=== PATIENT | male | born 1980 | race Caucasian/White ===

== ENCOUNTER 2018-02-27 04:02 | Emergency (ER) | payer SELFPAY ==
[2018-02-27 04:03] VITALS: BP 146/89; PULSE 99; RESP 20; TEMP 36.8; O2SAT 98; BMI 20.2
--- NOTE | 2018-02-27 04:37 | ED.VISSUMM ---
- ER Visit Summary Date of Service: 02/27/18 Chief Complaint: [] Abnormal behavior History of Present Illness: The patient is a 37 M with reported abnormal behavior today. Reported hallucinations and delusions. Patient called the police thinking that people are outside his house. His mother stated she did not see anyone or here anyone. He stated that his ex- was next door and trying to get him to violate a restraining order. He stated that the police did not even look for her. His mom on the phone stated that she does not even know where she lives and was not there. The patient did admit to smoking marijuana twice per week. None tonight. He also admitted to methamphetamines greater than 24 hours ago. Patient is supposed to be on Prozac and Ativan but has not taken them in the last 3 months per pt. He has a history of bipolar disorder. His mom stated he has been admitted twice recently. He denies any suicidal or homicidal ideation and wants to go home Physical Examination: Vital signs reviewed General: Well-nourished well-developed Head: Normocephalic atraumatic Eyes: Pupils equal round and reactive to light extraocular movements intact ENT: TMs clear no hemotympanum no trauma Neck: Nontender full range of motion Cardiovascular: Regular rate rhythm no murmurs normal S1-S2 Respiratory: No distress clear to auscultation bilaterally chest nontender Abdomen: Soft nontender nondistended normal bowel sounds no masses Back: Nontender no CVA tenderness Extremities: Nontender active range of motion ?4 extremities no trauma Psych: Normal thought processes. Difficult to tell if patient is actually having delusions or hallucinations are telling the truth. Normal color no trauma Neuro alert oriented cranial nerves II through XII intact normal strength sensation reflexes Test Results: [] Emergency Department Course and Treatment: [] Discussed at length with the patient's mom. He called her outside home and stated there were people out there. She saw no one. She said he is having hallucinations and delusions. He was brought in for further evaluation by the police. Patient did have lab work obtained and will be seen by mental health. Lab work shows a normal CBC. Chemistries normal except BUN 19 glucose 115. Alcohol negative. Tox for amphetamines, MDMA, marijuana. Seen by crisis. At this time we have made a consensus decision that patient psychosis is from his intoxication and likely amphetamine related. He does not appear psychotic in the department. He answers all questions was evaluated by crisis. Patient is refusing treatment. To go home. He does not want to be admitted. He has the right to do this. Is not suicidal or homicidal. We discussed with his mom. He will be discharged. He was given information on follow-up. He stated he does not want to follow-up with crisis and does not want to take medications. Instructed to stay away from illicit substances Treatment Plan: [] Disposition: [] Impression: [] Reported acute psychoses Reported acute hallucinations and delusions Polysubstance drug abuse This note was generated with [employer] dictation software. It may contain incorrect words, spelling, and punctuation that were not noted in review of the chart prior to signing ED Disposition - Plan for ED Patient: Disposition: Home or Assisted Living Chief Complaint: Mental Health Instructions: ED Drug Abuse General Referrals: Counseling,Center [GROUP OF PHYSICIANS] - Care Physician,No Primary [Primary Care Provider] - EIGHTY,ONE [STAFF PHYSICIAN] -
[2018-02-27 04:45] LABS: Absolute Lymphocyte Count 2.17 X10^3/ul (0.83-4.51); Absolute Neutrophil Count 5.7 X10^3/uL (2.0-7.7); Basophil# 0.02 X10^3/uL; Basophil% 0.2 % (0-1); Eosinophil# 0.08 X10^3/uL; Eosinophils% 0.9 % (0-5); Hematocrit 44.2 % (40-54); Hemoglobin 14.7 g/dl (13.0-16.5); Lymphocyte # 2.17 X10^3/ul (4.0); Lymphocyte % 25.1 % (19-41); Mean Corp Hgb Conc 33.3 g/gl (32-36); Mean Corpuscular Hgb 31.5 pg (27.0-32.0); Mean Corpuscular Volume 94.6 fL (80-94); Mean Platelet Vol. 10.4 fl (6.2-12.0); Monocyte# 0.63 X10^3/uL; Monocyte% 7.3 % (0-10); Neutrophil # 5.73 X10^3/uL (2.7-7.7); Neutrophil % 66.4 % (47-70); Platelet Count 216 K/mm3 (150-450); Red Blood Count 4.67 M/mm3 (4.6-6.2); White Blood Count 8.6 K/mm3 (4.4-11.0)
[2018-02-27 04:47] LABS: POSITIVE COUNT NO; POSITIVE DIFFERENTIAL NO; POSITIVE MORPHOLOGY NO
[2018-02-27 04:52] LABS: Anion Gap 6 (5-15); BUN 19 mg/dL (7-18); BUN/Creat Ratio 19.5 RATIO (10-20); Calcium,Total 8.5 mg/dL (8.5-10.1); Chloride 105 mmol/L (98-107); Creatinine, Serum 0.97 mg/dL (0.70-1.30); EST Glomerular Filtration Rate 91 mL/min (>60); Est Glom Filt Rate - Afr Amer 111 mL/min (>60); Glucose 115 mg/dL (74-106); Sodium Level 141 mmol/L (136-145)
[2018-02-27 04:57] LABS: Alcohol, Blood (Medical)-Serum < 3.0 mg/dL
[2018-02-27 05:03] VITALS: RESP 18
--- NOTE | 2018-02-27 05:03 | ED.RN ---
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
[2018-02-27 05:16] LABS: Amphetamine Urine VISTA POSITIVE (<1000 ng/mL); Barbiturate Urine VISTA NEGATIVE (< 200 ng/mL); Benzodiazepine Urine VISTA NEGATIVE (< 200 ng/mL); Cocaine Urine VISTA NEGATIVE (< 300 ng/mL); Ecstacy Urine VISTA POSITIVE (< 500 ng/mL); Methadone Urine VISTA NEGATIVE (< 300 ng/mL); PCP Urine VISTA NEGATIVE (< 25 ng/mL); THC Urine VISTA POSITIVE (< 50 ng/mL); Vista UDS pH Range 6
--- NOTE | 2018-02-27 06:01 | ED.DEP ---
ED Disposition - Plan for ED Patient: Disposition: Home or Assisted Living Chief Complaint: Mental Health Instructions: ED Drug Abuse General Referrals: Care Physician,No Primary [Primary Care Provider] - Counseling,Center [GROUP OF PHYSICIANS] - EIGHTY,ONE [STAFF PHYSICIAN] -
[2018-02-27 06:08] VITALS: RESP 18
--- NOTE | 2018-02-27 06:14 | ED.RN ---
PTS MOTHER CALLED AFTER PATIENT WAS GIVEN THOROUGH DISCHARGE INSTRUCTIONS. MOTHER STATES I WILL HIRE A BEEF BREAKER WHEN SOMETHING HAPPENS. MOTHER WAS INFORMED HE WAS CLEARED BY THE ER PHYSICIAN AND CRISIS COUNSELOR AND THAT I COULD NOT DISCLOSE ANY OF HIS MEDICAL INFORMATION.
== END 2018-02-27 06:09 | disposition home or self-care (01) ==
PROVIDERS: Emergency Provider Emergency Medicine
DX: F29 Unspecified psychosis not due to a substance or known physiological condition (principal); R44.3 Hallucinations, unspecified; F22 Delusional disorders; F19.10 Other psychoactive substance abuse, uncomplicated; F31.9 Bipolar disorder, unspecified; Z72.0 Tobacco use
CPT/HCPCS: 80048; 80307; 80320; 85025; 99285; G0480

== ENCOUNTER → 2024-11-03 | Outpatient (CLI) | payer MEDICAID, SELFPAY ==
[2024-11-03 17:12] LABS: Absolute Lymphocyte Count 1.19 X10^3/uL (0.83-4.51); Basophil# 0.06 X10^3/uL; Basophil% 0.5 % (0-1); Eosinophil# 0.39 X10^3/uL; Eosinophils% 3.1 % (0-5); Hemoglobin 14.4 g/dL (13.0-16.5); Lymphocyte # 1.19 X10^3/ul (0.83-4.51); Lymphocyte % 9.4 % (19-41); Mean Corp Hgb Conc 32.7 g/dL (32-36); Mean Corpuscular Hgb 30.8 pg (27.0-32.0); Mean Platelet Vol. 11.7 fl (6.2-12.0); Monocyte# 0.93 X10^3/uL; Monocyte% 7.4 % (0-10); NRBC Flagged by Analyzer 0 % (0-5); Neutrophil # 10.02 X10^3/uL (2.7-7.7); Neutrophil % 79.2 % (47-70); Platelet Count 157 K/mm3 (150-450); RBC Distribution Width CV 13.2 % (11.6-14.6); RBC Distribution Width SD 45.3 fl (35.1-43.9); Red Blood Count 4.68 M/mm3 (4.6-6.2); White Blood Count 12.6 K/mm3 (4.4-11.0)
[2024-11-03 17:50] LABS: ALB/GLOB Ratio 1.1 RATIO (0.9-2.4); AST(SGOT) 32 U/L (<=37); Alanine Aminotransfer ALT/SGPT 31 U/L (<=46); Albumin, Serum 4.4 g/dL (3.5-5.0); Alkaline Phosphatase 77 U/L (40-129); Anion Gap 13 (5-15); BUN 11 mg/dL (4-19); BUN/Creat Ratio 13.9 RATIO (10-20); Calcium,Total 9.8 mg/dL (7.6-11.0); Carbon Dioxide 19.5 mmol/L (21.0-32.0); Chloride 103 mmol/L (98-108); Creatinine, Serum 0.82 mg/dL (0.70-1.20); EST Glomerular Filtration Rate 110 (>60); Glucose 88 mg/dL (70-99); Potassium 4.3 mmol/L (3.3-5.1); Protein, Total 8.4 g/dL (5.9-8.4); Sodium Level 135 mmol/L (133-145); Total Bilirubin 0.57 mg/dL (0.00-1.30)
[2024-11-03 18:23] LABS: Lithium 0.64 mmol/L (0.60-1.20)
== END | disposition home or self-care (01) ==
LOC: VSLAB 14:31
DX: F20.9 Schizophrenia, unspecified (principal); R53.83 Other fatigue
CPT/HCPCS: 36415; 80053; 80178; 84443; 85025

== ENCOUNTER → 2024-11-19 | Outpatient (CLI) | payer MEDICAID, SELFPAY ==
[2024-11-19 13:26] LABS: Vitamin B12 575 pg/mL (180-914); Vitamin D,25 Hydroxy 49.3 ng/mL (30-100)
== END | disposition home or self-care (01) ==
LOC: VSLAB 08:14
DX: R41.3 Other amnesia (principal); R53.83 Other fatigue
CPT/HCPCS: 36415; 82306; 82607

== ENCOUNTER → 2025-02-03 | Outpatient (CLI) | payer MEDICAID, SELFPAY ==
[2025-02-03 09:33] LABS: Hematocrit 48.2 % (40-54); Hemoglobin 15.8 g/dL (13.0-16.5); Immature Granulocytes Count 0.050 X10^3/uL (0.0-0.0); Mean Corp Hgb Conc 32.8 g/dL (32-36); Mean Corpuscular Volume 93.6 fL (80-94); Mean Platelet Vol. 11.0 fl (6.2-12.0); NRBC Flagged by Analyzer 0 % (0-5); Platelet Count 184 K/mm3 (150-450); RBC Distribution Width CV 13.2 % (11.6-14.6); RBC Distribution Width SD 45.7 fl (35.1-43.9); Red Blood Count 5.15 M/mm3 (4.6-6.2); White Blood Count 13.0 K/mm3 (4.4-11.0)
[2025-02-03 10:20] LABS: Lithium 0.43 mmol/L (0.60-1.20)
[2025-02-03 10:23] LABS: AST(SGOT) 22 U/L (<=37); Alanine Aminotransfer ALT/SGPT 18 U/L (<=46); Albumin, Serum 4.7 g/dL (3.5-5.0); Alkaline Phosphatase 75 U/L (40-129); Anion Gap 11 (5-15); BUN 14 mg/dL (4-19); BUN/Creat Ratio 14.8 RATIO (10-20); Calcium,Total 9.7 mg/dL (7.6-11.0); Carbon Dioxide 23.1 mmol/L (21.0-32.0); Chloride 103 mmol/L (98-108); Globulin 4.0 g/dL (2.2-4.2); Glucose 100 mg/dL (70-99); Potassium 4.3 mmol/L (3.3-5.1)
== END | disposition home or self-care (01) ==
PROVIDERS: Referring Provider Nurse Practitioner; Visit Provider Nurse Practitioner
DX: F20.9 Schizophrenia, unspecified (principal)
CPT/HCPCS: 36415; 80053; 80178; 84443; 85025

== ENCOUNTER → 2025-04-25 | Outpatient (CLI) | payer MEDICAID, SELFPAY ==
[2025-04-25 12:22] LABS: Hematocrit 48.0 % (40-54); Hemoglobin 15.5 g/dL (13.0-16.5); Mean Corp Hgb Conc 32.3 g/dL (32-36); Mean Corpuscular Volume 96.0 fL (80-94); Mean Platelet Vol. 11.0 fl (6.2-12.0); Platelet Count 185 K/mm3 (150-450); RBC Distribution Width CV 13.1 % (11.6-14.6); RBC Distribution Width SD 46.7 fl (35.1-43.9); Red Blood Count 5.00 M/mm3 (4.6-6.2); White Blood Count 11.9 K/mm3 (4.4-11.0)
[2025-04-25 12:25] LABS: Ammonia 20.6 umol/L (16-60)
[2025-04-25 13:26] LABS: Barbiturate Urine NEGATIVE (< 200 ng/mL); Benzodiazepine Urine NEGATIVE (< 200 ng/mL); Lithium 0.60 mmol/L (0.60-1.20); PCP Urine NEGATIVE (< 25 ng/mL); THC Urine PRESUMPTIVE POSITIVE (< 50 ng/mL)
[2025-04-25 13:46] LABS: AST(SGOT) 23 U/L (<=37); Alanine Aminotransfer ALT/SGPT 20 U/L (<=46); Albumin, Serum 4.8 g/dL (3.5-5.0); Alkaline Phosphatase 75 U/L (40-129); Anion Gap 12 (5-15); BUN 11 mg/dL (4-19); BUN/Creat Ratio 10.7 RATIO (10-20); Calcium,Total 9.8 mg/dL (7.6-11.0); Carbon Dioxide 24.6 mmol/L (21.0-32.0); Chloride 101 mmol/L (98-108); Globulin 4.2 g/dL (2.2-4.2); Glucose 91 mg/dL (70-99); Potassium 4.2 mmol/L (3.3-5.1); Vitamin B12 529 pg/mL (180-914)
[2025-04-27 12:09] LABS: ANTINUCLEAR ANTIBODIES DIRECT Positive (Negative); Anti-Chromatin <0.2 AI (0.0-0.9); Anti-Jo <0.2 AI (0.0-0.9); Anti-dsDNA Ab 21 IU/mL (0-9); SJOGREN'S Anti-SS-A test 0.4 AI (0.0-0.9); SJOGREN'S Anti-SS-B test 0.3 AI (0.0-0.9); Vitamin D 1,25-Dihydroxy 33.4 pg/mL (24.8-81.5)
[2025-04-28 18:08] LABS: Folate, Hemolysate Test 319.0 ng/mL (Not Estab.); Folate, RBC (Hct) Test 47.9 % (37.5-51.0); Folates, RBC Test 666 ng/mL (>498); VITAMIN B6 5.5 ug/L (3.4-65.2); Vitamin B1, Thiamine 150.4 nmol/L (66.5-200.0)
== END | disposition home or self-care (01) ==
LOC: MTLAB 10:01
PROVIDERS: Referring Provider Psychiatry & Neurology Neurology; Visit Provider Psychiatry & Neurology Neurology
DX: F03.90 Unspecified dementia, unspecified severity, without behavioral disturbance, psychotic disturbance, mood disturbance, and anxiety (principal); F20.0 Paranoid schizophrenia
CPT/HCPCS: 36415; 80053; 80178; 80307; 82140; 82607; 82652; 82747; 84207; 84425; 84443; 85014; 85027; 86038; 86225; 86235

== ENCOUNTER → 2025-05-09 | Outpatient (CLI) | payer MEDICAID, SELFPAY ==
--- NOTE | 2025-05-09 06:59 | MRI_ITS ---
PROCEDURE: BRAIN W/WO CONTRAST 05/09/2025 REASON FOR EXAM: DEMENTIA; PARANOID SCHIZOPHRENIA TECHNIQUE: Procedure Code: [id number] Modality: MR Procedure: BRAIN W/WO CONTRAST Multiplanar and multisequence images were obtained. CONTRAST: Clariscan VOLUME: 15 mL COMPARISON: None available FINDINGS: Some images are degraded by motion artifact. No acute infarct or hemorrhage. The brain parenchyma is within normal limits. No extra-axial fluid collection. No significant mass effect or herniation of the brain. The ventricular system and sulci/fissures are within expected limits of size and configuration for the patient's stated age. The basal cisterns are patent. The intracranial large vessel arterial flow voids are maintained. The mastoid air cells clear. There is scattered paranasal mucosal thickening. The orbits are unremarkable. The calvarial bone marrow signal is within normal limits. MRI/Brain W/WO Contrast IMPRESSION: No acute intracranial findings. No pathologic intracranial enhancement. Reading Location: [id number]
--- OUTSIDE RECORDS SUMMARY | 2025-05-09 07:28 | XMS RPT_ITS | CCD ---
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 Name Role Phone PROVIDER, UNKNOWN Unavailable Unavailable No, PCP Unavailable Unavailable Avery Fernandez Unavailable Unavailable Ana Paula Cox Attending Unavailable PROVIDER, UNKNOWN Referring Unavailable No, PCP Primary Care Unavailable PROVIDER, UNKNOWN Referring Unavailable No, PCP Primary Care Unavailable Samantha Sandy Attending Unavailable PROVIDER, UNKNOWN Referring Unavailable No, PCP Primary Care Unavailable Naheed Trotter Attending Unavailable Giovanni Walden Attending Unavailable PROVIDER, UNKNOWN Referring Unavailable No, PCP Primary Care Unavailable Julse Brizuela Attending Unavailable PROVIDER, UNKNOWN Referring Unavailable No, PCP Primary Care Unavailable Lex Almazan Attending Unavailable PROVIDER, UNKNOWN Referring Unavailable No, PCP Primary Care Unavailable JIMENA PAGAN Attending Unavailable JIMENA PAGAN Admitting Unavailable PHYSICIAN, NONE Primary Care Unavailable IVANIA MCINTYRE DO Attending Unavailable PHYSICIAN, NONE Primary Care Unavailable IVANIA MCINTYRE DO Attending Unavailable DR WHIT MORLEY MD Primary Care Physician IVANIA MCINTYRE DO Attending Unavailable PHYSICIAN, NONE Primary Care Unavailable DR WHIT MORLEY MD Primary Care Unavailab alfa OLVERA MD, DR MENDY Palacios Attending Unavailabl e Beam FINANCIAL LEGAL ASSISTANT-C, Zebulun Primary Care Provider Beam FINANCIAL LEGAL ASSISTANT-C, Zebulun Attending Provider Beam FINANCIAL LEGAL ASSISTANT-C, Zebulun Primary Care Physician Beam FINANCIAL LEGAL ASSISTANT-C, Zebulun Attending Physician [place] FINANCIAL LEGAL ASSISTANT-C, Rebeca Attending Physician [place] FINANCIAL LEGAL ASSISTANT-C, Rebeca Referring Provider Beam, Zebulun Primary Care Unavailable Beam, Zebulun Attending Unavailable Beam, Zebulun Primary Care Unavailable FrybargeRebeca Henao Attending Unavailabl e [place] Rebeca GARCIA Referring Unavailabl e Beam, Zebulun Primary Care Unavailable Beam, Kellie Attending Unavailable Beam, Zebufranco Referring Unavailable Beam, Zebulun Primary Care Unavailable Beam, Kellie Attending Unavailable Allergies Allergy Classification Reported Allergen(s) Allergy Type Date of Onset Reaction(s) Facility (3 sources) diphenhydrAMINE Drug Allergy 8 Other [facility] (1 source) diphenhydrAMINE Drug Allergy 8 [facility] Repository Medications Current Medications Medication Drug Class(es) Dates Sig (Normalized) Sig (Original) cyclobenzaprine hydrochloride 5 mg oral tablet (1 source) Muscle Relaxant Start: 10-01-2024 End: 10-08-2024 cyclobenzaprine 5 mg oral tablet Dose : 5 mg = 1 tab(s), Oral, TID, PRN Muscle spasm, X 7 day(s), # 21 tab(s), 0 Refill(s), 10/08/24 3:18:00 PM EDT, Pharmacy: [facility], kg, 10/01/24 13:36:00 EDT, Dosing Weight Start Date: 10/01/24 Stop Date: 10/08/24 Status: Ordered Quantity: 21.0 Unit: tab(s) Repeat number: 1 docusate sodium 50 mg / sennosides, [facility] 8.6 mg oral tablet (1 source) Start: 10-01-2024 Senexon-S 50 mg-8.6 mg oral tablet 0 Refill(s) Start Date: 10/01/24 Status: Ordered Repeat number: 1 haloperidol 5 mg oral tablet (1 source) Typical Antipsychotic Start: 10-01-2024 haloperidol 5 mg oral tablet Dose : 5 mg = 1 tab(s), Oral, BID, # 180 tab(s), 0 Refill(s) Start Date: 10/01/24 Status: Ordered Quantity: 180.0 Unit: tab(s) Repeat number: 1 lithium carbonate 300 mg extended release oral tablet (2 sources) Start: 10-01-2024 lithium 300 mg oral tablet, extended release Dose : 300 mg = 1 tab(s), Oral, BID, # 270 tab(s), 0 Refill(s) Start Date: 10/01/24 Status: Ordered Quantity: 270.0 Unit: tab(s) Repeat number: 1 Start: 10-01-2024 lithium 150 mg oral capsule Dose : 150 mg = 1 cap(s), Oral, Daily, 0 Refill(s) Start Date: 10/01/24 Status: Ordered Repeat number: 1 melatonin 3 mg oral tablet (1 source) Start: 10-01-2024 Melatonin 3 mg oral tablet Dose : 3 mg = 1 tab(s), Oral, qHS, PRN for insomnia, # 90 tab(s), 0 Refill(s) Start Date: 10/01/24 Status: Ordered Quantity: 90.0 Unit: tab(s) Repeat number: 1 metFORMIN hydrochloride 500 mg oral tablet (1 source) Biguanide Start: 10-01-2024 metFORMIN 500 mg oral tablet (IR) Dose : 500 mg = 1 tab(s), Oral, BID, # 180 tab(s), 0 Refill(s) Start Date: 10/01/24 Status: Ordered Quantity: 180.0 Unit: tab(s) Repeat number: 1 naproxen 500 mg delayed release oral tablet (1 source) Nonsteroidal Anti-inflammatory Drug Start: 10-01-2024 End: 10-08-2024 naproxen 500 mg oral delayed release tablet Dose : 500 mg = 1 tab(s), Oral, BID, PRN Muscle pain, X 7 day(s), # 14 tab(s), 0 Refill(s), 10/08/24 3:18:00 PM EDT, Pharmacy: [facility] 2966, kg, 10/01/24 13:36:00 EDT, Dosing Weight Start Date: 10/01/24 Stop Date: 10/08/24 Status: Ordered Quantity: 14.0 Unit: tab(s) Repeat number: 1 24 hr paliperidone 3 mg extended release oral tablet (2 sources) Atypical Antipsychotic Start: 10-01-2024 paliper idone 3 mg oral tablet, extended release Dose : 3 mg = 1 tab(s), Oral, qAM, # 30 tab(s), 0 Refill(s) Start Date: 10/01/24 Status: Ordered Quantity: 30.0 Unit: tab(s) Repeat number: 1 Start: 08-05-2024 inject 1 mL by intra muscular injection every month Invega Sustenna 234 mg/1.5 mL intramuscular suspension, extended release Dose : 234 mg = 1 mL, Intramuscular, qmonth, # 1 EA, 0 Refill(s) Start Date: 08/05/24 Status: Ordered Quantity: 1.0 Unit: EA Repeat number: 1 Vitamin D3 25 mcg (1000 intl units) oral tablet (1 source) Start: 10-01-2024 Vitamin D3 25 mcg (1000 intl units) oral tablet Dose : 25 mcg = 1 tab(s), Oral, qDay, # 30 tab(s), 0 Refill(s) Start Date: 10/01/24 Status: Ordered Quantity: 30.0 Unit: tab(s) Repeat number: 1 Completed/Discontinued Medications Medication Drug Class(es) Dates Sig (Normalized) Sig (Original) clonazePAM 1 mg oral tablet (1 source) Benzodiazepine Start: 10-01-2024 clonazePAM 1 mg oral tablet Dose : 1 mg = 1 tab(s), Oral, qHS, 0 Refill(s), 77.6 Start Date: 10/01/24 Status: Ordered Repeat number: 1 polyethylene glycol 3350 36710 mg powder for oral solution (1 source) Osmotic Laxative Start: 10-01-2024 take 4-8 [oz_av] by mouth once daily polyethylene glycol 3350 oral powder for reconstitution Dose : 17 gram(s) =, Oral, qDay, dissolve in 4 to 8 oz of beverage, # 238 gram(s), 0 Refill(s) Start Date: 10/01/24 Status: Ordered Quantity: 238.0 Unit: g Repeat number: 1 Problems Active Problems Problem Classification Problem Date Documented Date Episodic/Chronic Allergic reactions (2 sources) Allergy status to other drugs, medicaments and biological substances status; Translations: [Allergy status to oth drug/meds/biol subst status] Onset: 07-17-2018 Episodic Anxiety disorders (2 sources) Anxiety disorder, unspecified; Translations: [Anxiety disorder, unspecified] Onset: 04-30-2018 Chronic Asthma (2 sources) Unspecified asthma, uncomplicated; Translations: [Unspecified asthma, uncomplicated] Onset: 07-17-2018 Chronic Diseases of white blood cells (2 sources) Elevated white blood cell count, unspecified; Translations: [Elevated white blood cell count, unspecified] Onset: 01-06-2018 Chronic External cause codes: Fall (2 sources) Unspecified fall, initial encounter; Translations: [Unspecified fall, initial encounter] Onset: 01-05-2018 Mood disorders (2 sources) Major depressive disorder, single episode, unspecified; Translations: [Major depressive disorder, single episode, unspecified] Onset: 01-06-2018 Other connective tissue disease (2 sources) Rhabdomyolysis; Translations: [Rhabdomyolysis] Onset: 04-30-2018 Episodic Other connective tissue disease (1 source) Spasm; Translations: [Other muscle spasm] Onset: 10-01-2024 Episodic Other connective tissue disease (1 source) Other muscle spasm; Translations: [Other muscle spasm] Onset: 10-01-2024 Episodic Other ear and sense organ disorders (2 sources) Otalgia, left ear; Translations: [Otalgia, left ear] Onset: 06-24-2018 Episodic Other ear and sense organ disorders (2 sources) Other infective otitis externa, left ear; Translations: [Other infective otitis externa, left ear] Onset: 06-24-2018 Episodic Other injuries and conditions due to external causes (1 source) Injury of head; Translations: [Unspecified injury of head, initial encounter] Onset: 10-01-2024 Episodic Other injuries and conditions due to external causes (1 source) Unspecified injury of head, initial encounter; Translations: [Unspecified injury of head, initial encounter] Onset: 10-01-2024 Episodic Other lower respiratory disease (2 sources) Personal history of pneumonia (recurrent); Translations: [Personal history of pneumonia (recurrent)] Onset: 04-30-2018 Episodic Poisoning by other medications and drugs (2 sources) Poisoning by unspecified drugs, medicaments and biological substances, accidental (unintentional), initial encounter; Translations: [Poisoning by unsp drug/meds/biol subst, accidental, init] Onset: 04-30-2018 Poisoning by psychotropic agents (2 sources) Poisoning by amphetamines, accidental (unintentional), initial encounter; Translations: [Poisoning by amphetamines, accidental (unintentional), init] Onset: 04-30-2018 Residual codes; unclassified (2 sources) Acquired absence of other specified parts of digestive tract; Translations: [Acquired absence of other specified parts of digestive tract] Onset: 04-30-2018 Episodic Residual codes; unclassified (2 sources) Other amnesia; Translations: [Other amnesia] Onset: 11-23-2024 Episodic Schizophrenia and other psychotic disorders (7 sources) Delusional disorders; Translations: [Unspecified psychosis not due to a substance or known physiological condition] Onset: 07-17-2018 Chronic Substance-related disorders (6 sources) Other stimulant use, unspecified, uncomplicated; Translations: [Nicotine dependence, unspecified, uncomplicated] Onset: 04-30-2018 Chronic Past or Other Problems Problem Classification Problem Date Documented Da te Episodic/Chronic Fluid and electrolyte disorders (2 sources) Hypokalemia; Translations: [Hypokalemia] Onset: 01-06-2018 Episodic Other connective tissue disease (2 sources) Pain in left leg; Translations: [Pain in left leg] Onset: 01-05-2018 Episodic Other connective tissue disease (2 sources) Pain in leg, unspecified; Translations: [Pain in leg, unspecified] Onset: 01-05-2018 Episodic Other connective tissue disease (2 sources) Pain in right leg; Translations: [Pain in right leg] Onset: 01-05-2018 Episodic Substance-related disorders (2 sources) 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; Translations: [Oth stimulant abuse w stim-induce psych disorder w hallucin] Onset: 01-06-2018 Episodic Superficial injury; contusion (6 sources) Contusion of right foot, initial encounter; Translations: [Abrasion, left lower leg, initial encounter] Onset: 01-05-2018 Episodic Results Test Name Value Interpretation Reference Range [facility] Absolute lymphocyte countOrd ered By: Rebeca Pollock on 02-03-2025 Lymphocytes Auto (Unsp spec) [#/Vol] 1.97 10*3/uL 0.83-4.51 [facility] Absolute neutrophil countOrd ered By: Rebeca Pollock on 02-03-2025 Neutrophils (Bld) [#/Vol] 10.2 10*3/uL High 2.0-7.7 [facility] Anion gap in Serum or Plasma Ordered By: Rebeca Pollock on 02-03-2025 Anion gap [Moles/Vol] 11 mmol/L 5-15 [facility] Automated lymphocyte count a s percentage of total leukocytesOrdered By: Rebeca Pollock on 02-03-2025 Lymphocytes/100 WBC Auto (Unsp spec) 15.2 % Low 19-41 [facility] BUN/creatinine ratioOrdered By: Rebeca Pollock on 02-03-2025 Urea nitrogen/Creatinine [Mass ratio] 14.8 mg/mg 10-20 [facility] Basophil percentageOrdered B y: Rebeca Pollock on 02-03-2025 Basophils/100 WBC (Bld) 0.5 % 0-1 [facility] Bilirubin, totalOrdered By: Rebeca Pollock on 02-03-2025 Bilirubin [Mass/Vol] 0.30 mg/dL 0.00-1.30 [facility] CBC W/Diff, Automatedon 01-24 Absolute Lymph 1.97 X10 3/uL Normal 0.83-4.51 [facility] Comment on above: Performed By: #### L [id number], [id number], L500.4050, L100.0100 #### [facility] [address] [place], [address] Absolute Neut 10.2 X10 3/uL High 2.0-7.7 [facility] Comment on above: Performed By: #### L [id number], [id number], L500.4050, L100.0100 #### [facility] [address] [place], [address] Basophils/100 WBC (Bld) 0.5 % Normal 0-1 [facility] Comment on above: Performed By: #### L [id number], [id number], [id number], L100.0100 #### [facility] [address] [place], [address] Eosinophils/100 WBC (Bld) 0.9 % Normal 0-5 [facility] Comment on above: Performed By: #### L [id number], [id number], [id number], L100.0100 #### [facility] [address] [place], [address] Erythrocyte distribution width (RBC) [Ratio] 13.2 % Normal 11.6-14.6 [facility] Comment on above: Performed By: #### L [id number], [id number], [id number], L100.0100 #### [facility] [address] [place], [address] Hematocrit (Bld) [Volume fraction] 48.2 % Normal 40-54 [facility] Comment on above: Performed By: #### L [id number], [id number], [id number], L100.0100 #### [facility] [address] [place], [address] Hemoglobin (Bld) [Mass/Vol] 15.8 g/dL Normal 13.0-16.5 [facility] Comment on above: Performed By: #### L [id number], [id number], L500.4050, L100.0100 #### [facility] [address] [place], [address] IG% 0.400 Normal 0.0-0.9 [facility] Comment on above: Result Comment: IG% - Immature Granulocytes (promyelocytes, myelocytes and metamyelocytes) > 1% indicates that a LEFT SHIFT is Present. Performed By: #### L [id number], [id number], L500.4050, L100.0100 #### [facility] [address] [place], [address] Lymphocytes/100 WBC (Bld) 15.2 % Low 19-41 [facility] Comment on above: Performed By: #### L [id number], [id number], L500.4050, L100.0100 #### [facility] [address] [place], [address] MCH (RBC) [Entitic mass] 30.7 pg Normal 27.0-32.0 [facility] Comment on above: Performed By: #### L [id number], [id number], L500.4050, L100.0100 #### [facility] [address] [place], [address] MCHC (RBC) [Mass/Vol] 32.8 g/dL Normal 32-36 [facility] Comment on above: Performed By: #### L [id number], [id number], L500.4050, L100.0100 #### [facility] [address] [place], [address] MCV (RBC) [Entitic vol] 93.6 fL Normal 80-94 [facility] Comment on above: Performed By: #### L [id number], [id number], L500.4050, L100.0100 #### [facility] [address] [place], [address] Monocytes/100 WBC (Bld) 4.7 % Normal 0-10 [facility] Comment on above: Performed By: #### L [id number], [id number], L500.4050, L100.0100 #### [facility] [address] [place], [address] Neutrophils/100 WBC (Bld) 78.3 % High 47-70 [facility] Comment on above: Performed By: #### L [id number], [id number], L500.4050, L100.0100 #### [facility] [address] [place], [address] Nucleated RBC (Bld) [#/Vol] 0 10*3/uL Normal 0-5 [facility] Comment on above: Performed By: #### L [id number], [id number], L500.4050, L100.0100 #### [facility] [address] [place], [address] Platelet mean volume (Bld) [Entitic vol] 11.0 fL Normal 6.2-12.0 [facility] Comment on above: Performed By: #### L [id number], [id number], L500.4050, L100.0100 #### [facility] [address] [place], [address] Platelets (Bld) [#/Vol] 184 10*3/uL Normal 150-450 [facility] Comment on above: Performed By: #### L [id number], [id number], L500.4050, L100.0100 #### [facility] [address] [place], [address] RBC (Bld) [#/Vol] 5.15 10*6/uL Normal 4.6-6.2 [facility] Comment on above: Performed By: #### L [id number], [id number], L500.4050, L100.0100 #### [facility] [address] [place], [address] RDW SD 45.7 fl High 35.1-43.9 [facility] Comment on above: Performed By: #### L [id number], [id number], [id number], L100.0100 #### [facility] [address] [place], [address] WBC (Bld) [#/Vol] 13.0 10*3/uL High 4.4-11.0 [facility] Comment on above: Performed By: #### L [id number], [id number], L500.4050, L100.0100 #### [facility] [address] [place], [address] Carbon dioxide, total [Moles /volume] in Central venous bloodOrdered By: Rebeca Pollock on 02-03-2025 CO2 [Moles/Vol] 23.1 mmol/L 21.0-32.0 [facility] Chloride assayOrdered By: Alfa Pollock on 02-03-2025 Chloride [Moles/Vol] 103 mmol/L 98-108 [facility] Comprehensive Metabolic Prof ilon 02-03-2025 Albumin [Mass/Vol] 4.7 g/dL Normal 3.5-5.[address] [facility] Comment on above: Performed By: #### L [id number], [id number], L500.4050, L100.0100 #### [facility] [address] [place], [address] Albumin/Globulin [Mass ratio] 1.2 {ratio} Normal 0.9-2.4 [facility] Comment on above: Performed By: #### L [id number], [id number], L500.4050, L100.0100 #### [facility] [address] [place], [address] ALK PHOS 75 U/L Normal 40-129 [facility] Comment on above: Performed By: #### L [id number], [id number], L500.4050, L100.0100 #### [facility] [address] [place], [address] ALT [Catalytic activity/Vol] 18 U/L Normal <=46 [facility] Comment on above: Performed By: #### L [id number], [id number], L500.4050, L100.0100 #### [facility] [address] [place], [address] AST [Catalytic activity/Vol] 22 U/L Normal <=37 [facility] Comment on above: Performed By: #### L [id number], [id number], L500.4050, L100.0100 #### [facility] [address] [place], [address] Bilirubin [Mass/Vol] 0.30 mg/dL Normal 0.00-1.30 [facility] Comment on above: Performed By: #### L [id number], [id number], L500.4050, L100.0100 #### [facility] [address] [place], [address] BUN/CRE 14.8 RATIO Normal 10-20 [facility] Comment on above: Performed By: #### L [id number], [id number], L500.4050, L100.0100 #### [facility] [address] [place], [address] Calcium [Mass/Vol] 9.7 mg/dL Normal 7.6-11.[address] [facility] Comment on above: Performed By: #### L [id number], [id number], L500.4050, L100.0100 #### [facility] [address] [place], [address] Chloride [Moles/Vol] 103 mmol/L Normal 98-108 [facility] Comment on above: Performed By: #### L [id number], [id number], L500.4050, L100.0100 #### [facility] [address] [place], [address] CO2 [Moles/Vol] 23.1 mmol/L Normal 21.0-32.0 [facility] Comment on above: Performed By: #### L [id number], [id number], L500.4050, L100.0100 #### [facility] [address] [place], [address] Creatinine [Mass/Vol] 0.95 mg/dL Normal 0.70-1.20 [facility] Comment on above: Performed By: #### L [id number], [id number], L500.4050, L100.0100 #### [facility] [address] [place], [address] GAP 11 Normal 5-15 [facility] Comment on above: Performed By: #### L [id number], [id number], L500.4050, L100.0100 #### [facility] [address] [place], [address] GFR/1.73 sq M.predicted among non-blacks MDRD (S/P/Bld) [Vol rate/Area] 101 mL/min/{1.73_m2} Normal >60 [facility] Comment on above: Result Comment: mL/m in/1.73m2 CKD-EPI Creatinine Equation (2020) Performed By: #### L [id number], [id number], L500.4050, L100.0100 #### [facility] [address] [place], [address] Globulin (S) [Mass/Vol] 4.0 g/dL Normal 2.2-4.2 [facility] Comment on above: Performed By: #### L [id number], [id number], L500.4050, L100.0100 #### [facility] [address] [place], [address] Glucose [Mass/Vol] 100 mg/dL High 70-[address] [facility] Comment on above: Performed By: #### L [id number], [id number], L500.4050, L100.0100 #### [facility] [address] [place], [address] Potassium [Moles/Vol] 4.3 mmol/L Normal 3.3-5.1 [facility] Comment on above: Performed By: #### L [id number], [id number], L500.4050, L100.0100 #### [facility] [address] [place], [address] Sodium [Moles/Vol] 137 mmol/L Normal 133-[address] [facility] Comment on above: Performed By: #### L [id number], [id number], L500.4050, L100.0100 #### [facility] [address] [place], [address] T PROT 8.7 g/dL High 5.9-8.4 [facility] Comment on above: Performed By: #### L [id number], [id number], L500.4050, L100.0100 #### [facility] [address] [place], [address] Urea nitrogen [Mass/Vol] 14 mg/dL Normal 4-19 [facility] Comment on above: Performed By: #### L [id number], L501.9060, L500.4050, L100.0100 #### [facility] [address] [place], [address] Eosinophil percentageOrdered By: Rebeca Pollock on 02-03-2025 Eosinophils/100 WBC (Bld) 0.9 % 0-5 [facility] Erythrocyte distribution wid th ratioOrdered By: Rebeca Pollock on 02-03-2025 Erythrocyte distribution width (RBC) [Ratio] 13.2 % 11.6-14.6 [facility] Erythrocyte distribution wid th standard deviationOrdered By: Rebeca Pollock on 02-03-2025 Erythrocyte distribution width (RBC) [Ratio] 45.7 fl High 35.1-43.9 [facility] Glomerular filtration rate ( GFR) estimation/1.73 sq m using serum, plasma, or whole bOrdered By: Rebeca Pollock on 02-03-2025 GFR/1.73 sq M.predicted among non-blacks MDRD (S/P/Bld) [Vol rate/Area] 101 mL/min/{1.73_m2} >60 [facility] Comment on above: mL/min/1.73m2 CKD-EP I Creatinine Equation (2020) Hematocrit Auto (Bld) [Volum e fraction]Ordered By: Rebeca Pollock on 02-03-2025 Hematocrit (Bld) [Volume fraction] 48.2 % 40-54 [facility] Hemoglobin measurementOrdere d By: Rebeca Pollock on 02-03-2025 Hemoglobin (Bld) [Mass/Vol] 15.8 g/dL 13.0-16.5 [facility] Immature granulocytes/100 WB C Auto (Bld)Ordered By: Rebeca Pollock on 02-03-2025 Immature granulocytes/100 WBC (Bld) 0.400 % 0.0-0.9 [facility] Comment on above: IG% - Immature Granu locytes (promyelocytes, myelocytes and metamyelocytes) > 1% indicates that a LEFT SHIFT is Present. Laboratory - Chemistry and C hemistry - challengeOrdered By: Rebeca Pollock on 02-03-2025 AST [Catalytic activity/Vol] 22 U/L <38 [facility] Lithiumon 02-03-2025 LI 0.43 mmol/L Low 0.60-1.20 [facility] Comment on above: Order Comment: 1929 Performed By: #### L [id number], L501.9060, L500.4050, L100.0100 #### [facility] [address] [facility] [place], [address] MCV (mean corpuscular volume ) determinationOrdered By: Rebeca Pollock on 02-03-2025 MCV (RBC) [Entitic vol] 93.6 fL 80-94 [facility] Mean corpuscular hemoglobin (MCH) determinationOrdered By: Rebeca Pollock on 02-03-2025 MCH (RBC) [Entitic mass] 30.7 pg 27.0-32.0 [facility] Mean corpuscular hemoglobin concentration (MCHC) determinationOrdered By: Rebeca Pollock on 02-03-2025 MCHC (RBC) [Mass/Vol] 32.8 g/dL 32-36 [facility] Mean platelet volume determi nationOrdered By: Rebeca Pollock on 02-03-2025 Platelet mean volume (Bld) [Entitic vol] 11.0 fL 6.2-12.0 [facility] Monocyte percentageOrdered B y: Rebeca Pollock on 02-03-2025 Monocytes/100 WBC (Bld) 4.7 % 0-10 [facility] Neutrophil percentageOrdered By: Rebeca Pollock on 02-03-2025 Neutrophils/100 WBC (Bld) 78.3 % High 47-70 [facility] Nucleated red blood cell per centageOrdered By: Rebeca Pollock on 02-03-2025 Nucleated RBC/100 WBC (Bld) [Ratio] 0 % 0-5 [facility] Platelet countOrdered By: Alfa Pollock on 02-03-2025 Platelets (Bld) [#/Vol] 184 10*3/uL 150-450 [facility] Potassium measurement (mass/ volume)Ordered By: Rebeca Pollock on 02-03-2025 Potassium (Unsp spec) [Mass/Vol] 4.3 mmol/L 3.3-5.1 [facility] RBC Auto (Bld) [#/Vol]Ordere d By: Rebeca Pollock on 02-03-2025 RBC (Bld) [#/Vol] 5.15 10*6/uL 4.6-6.2 [facility] Serum creatinine measurement (mass/volume)Ordered By: Rebeca Pollock on 02-03-2025 Creatinine [Mass/Vol] 0.95 mg/dL 0.70-1.20 [facility] Serum globulin measurementOr dered By: eRbeca Pollock on 02-03-2025 Globulin (S) [Mass/Vol] 4.0 g/dL 2.2-4.2 [facility] Serum glucose measurement (m ass/volume)Ordered By: Rebeca Pollock on 02-03-2025 Glucose [Mass/Vol] 100 mg/dL High 70-[address] [facility] Serum or plasma alanine brooks otransferase (ALT) measurementOrdered By: Rebeca Pollock on 02-03-2025 ALT [Catalytic activity/Vol] 18 U/L <47 [facility] Serum or plasma albumin janet urement (mass/volume)Ordered By: Rebeca Pollock on 02-03-2025 Albumin [Mass/Vol] 4.7 g/dL 3.5-5.[address] [facility] Serum or plasma albumin/glob ulin mass ratioOrdered By: Rebeca Pollock on 02-03-2025 Albumin/Globulin [Mass ratio] 1.2 {ratio} 0.9-2.4 [facility] Serum or plasma alkaline stephane sphatase measurementOrdered By: Rebeca Pollock on 02-03-2025 ALP [Catalytic activity/Vol] 75 U/L 40-129 [facility] Serum or plasma calcium janet urement (mass/volume)Ordered By: Rebeca Pollock on 02-03-2025 Calcium [Mass/Vol] 9.7 mg/dL 7.6-11.[address] [facility] Serum or plasma urea nitroge n measurement (mass/volume)Ordered By: Rebeca Pollock on 02-03-2025 Urea nitrogen [Mass/Vol] 14 mg/dL 4-19 [facility] Sodium levelOrdered By: Jasper Pollock on 02-03-2025 Sodium [Moles/Vol] 137 mmol/L 133-[address] [facility] TSH DL <= 0.005 mIU/L QnOrde red By: Rebeca Pollock on 02-03-2025 TSH Qn 2.910 uIU/mL 0.300-4.200 [facility] Thyroid Stim Hormone (TSH)on 02-03-2025 TSH 2.910 uIU/mL Normal 0.300-4.200 [facility] Comment on above: Performed By: #### L 501.9592, L501.9060, L500.4050, L100.0100 #### [facility] [address] [place], [place], [id number] Total proteinOrdered By: Venkat Pollock on 02-03-2025 Protein [Mass/Vol] 8.7 g/dL High 5.9-8.[address] [facility] White blood cell (WBC) count Ordered By: Rebeca Pollock on 02-03-2025 WBC (Bld) [#/Vol] 13.0 10*3/uL High 4.4-11.0 [facility] Vitamin B12on 11-19-2024 Cobalamin (Vitamin B12) [Mass/Vol] 575 pg/mL Normal 180-914 [facility] Comment on above: Performed By: #### L 506.1001, L503.0106 #### [facility] [address] [place], [place], [address] Vitamin B12 ser/plasOrdered By: Kellie Beam on 11-19-2024 Cobalamin (Vitamin B12) [Mass/Vol] 575 pg/mL 180-914 [facility] Vitamin D,25 Hydroxyon 11-19 Vitamin D 25-OH 49.3 ng/mL Normal 30-100 [facility] Comment on above: Result Comment: Ingris min D Status Deficiency: <20 ng/mL (50nmol/L) Insufficiency: 20-30 ng/mL (50-75 nmol/L) Sufficiency: 30-100 ng/mL (75-250 nmol/L) Toxicity: >100 ng/mL (>250 nmol/L) Performed By: #### L 506.1001, L503.0106 #### [facility] [address] [place], [address] Absolute lymphocyte countOrd ered By: Julissan Beam on 11-03-2024 Lymphocytes Auto (Unsp spec) [#/Vol] 1.19 10*3/uL 0.83-4.51 [facility] Absolute neutrophil countOrd ered By: Zebulun Beam on 11-03-2024 Neutrophils (Bld) [#/Vol] 10.0 10*3/uL High 2.0-7.7 [facility] Anion gap in Serum or Plasma Ordered By: Julissan Beam on 11-03-2024 Anion gap [Moles/Vol] 13 mmol/L 5-15 [facility] Automated lymphocyte count a s percentage of total leukocytesOrdered By: Zebulun Beam on 11-03-2024 Lymphocytes/100 WBC Auto (Unsp spec) 9.4 % Low 19-41 [facility] BUN/creatinine ratioOrdered By: Zebulun Beam on 11-03-2024 Urea nitrogen/Creatinine [Mass ratio] 13.9 mg/mg 10-20 [facility] Basophil percentageOrdered B y: Zebulun Beam on 11-03-2024 Basophils/100 WBC (Bld) 0.5 % 0-1 [facility] Bilirubin, totalOrdered By: Zebulun Beam on 11-03-2024 Bilirubin [Mass/Vol] 0.57 mg/dL 0.00-1.30 [facility] CBC W/Diff, Automatedon 10-24 Absolute Lymph 1.19 X10 3/uL Normal 0.83-4.51 [facility] Comment on above: Performed By: #### L 100.0100, L501.9520, L500.4050, L501.9060 #### [facility] [address] [place], [address] Absolute Neut 10.0 X10 3/uL High 2.0-7.7 [facility] Comment on above: Performed By: #### L 100.0100, L501.9520, L500.4050, L501.9060 #### [facility] [address] [place], [address] Basophils/100 WBC (Bld) 0.5 % Normal 0-1 [facility] Comment on above: Performed By: #### L 100.0100, L501.9520, L500.4050, L501.9060 #### [facility] [address] [place], [address] Eosinophils/100 WBC (Bld) 3.1 % Normal 0-5 [facility] Comment on above: Performed By: #### L 100.0100, L501.9520, L500.4050, L501.9060 #### [facility] [address] [place], [address] Erythrocyte distribution width (RBC) [Ratio] 13.2 % Normal 11.6-14.6 [facility] Comment on above: Performed By: #### L 100.0100, L501.9520, L500.4050, L501.9060 #### [facility] [address] [place], [address] Hematocrit (Bld) [Volume fraction] 44.0 % Normal 40-54 [facility] Comment on above: Performed By: #### L 100.0100, L501.9520, L500.4050, L501.9060 #### [facility] [address] [place], [address] Hemoglobin (Bld) [Mass/Vol] 14.4 g/dL Normal 13.0-16.5 [facility] Comment on above: Performed By: #### L 100.0100, L501.9520, L500.4050, L501.9060 #### [facility] [address] [place], [address] IG% 0.400 Normal 0.0-0.9 [facility] Comment on above: Result Comment: IG% - Immature Granulocytes (promyelocytes, myelocytes and metamyelocytes) > 1% indicates that a LEFT SHIFT is Present. Performed By: #### L 100.0100, L501.9520, L500.4050, L501.9060 #### [facility] [address] [place], [address] Lymphocytes/100 WBC (Bld) 9.4 % Low 19-41 [facility] Comment on above: Performed By: #### L 100.0100, L501.9520, L500.4050, L501.9060 #### [facility] [address] [place], [address] MCH (RBC) [Entitic mass] 30.8 pg Normal 27.0-32.0 [facility] Comment on above: Performed By: #### L 100.0100, L501.9520, L500.4050, L501.9060 #### [facility] [address] [place], [address] MCHC (RBC) [Mass/Vol] 32.7 g/dL Normal 32-36 [facility] Comment on above: Performed By: #### L 100.0100, L501.9520, L500.4050, L501.9060 #### [facility] [address] [place], [address] MCV (RBC) [Entitic vol] 94.0 fL Normal 80-94 [facility] Comment on above: Performed By: #### L 100.0100, L501.9520, L500.4050, L501.9060 #### [facility] [address] [place], [address] Monocytes/100 WBC (Bld) 7.4 % Normal 0-10 [facility] Comment on above: Performed By: #### L 100.0100, L501.9520, L500.4050, L501.9060 #### [facility] [address] [place], [address] Neutrophils/100 WBC (Bld) 79.2 % High 47-70 [facility] Comment on above: Performed By: #### L 100.0100, L501.9520, L500.4050, L501.9060 #### [facility] [address] [place], [address] Nucleated RBC (Bld) [#/Vol] 0 10*3/uL Normal 0-5 [facility] Comment on above: Performed By: #### L 100.0100, L501.9520, L500.4050, L501.9060 #### [facility] [address] [place], [address] Platelet mean volume (Bld) [Entitic vol] 11.7 fL Normal 6.2-12.0 [facility] Comment on above: Performed By: #### L 100.0100, L501.9520, L500.4050, L501.9060 #### [facility] [address] [place], [address] Platelets (Bld) [#/Vol] 157 10*3/uL Normal 150-450 [facility] Comment on above: Performed By: #### L 100.0100, L501.9520, L500.4050, L501.9060 #### [facility] [address] [place], [address] RBC (Bld) [#/Vol] 4.68 10*6/uL Normal 4.6-6.2 [facility] Comment on above: Performed By: #### L 100.0100, L501.9520, L500.4050, L501.9060 #### [facility] [address] [place], [address] RDW SD 45.3 fl High 35.1-43.9 [facility] Comment on above: Performed By: #### L 100.0100, L501.9520, L500.4050, L501.9060 #### [facility] [address] [place], [address] WBC (Bld) [#/Vol] 12.6 10*3/uL High 4.4-11.0 [facility] Comment on above: Performed By: #### L 100.0100, L501.9520, L500.4050, L501.9060 #### [facility] [address] [place], [address] Carbon dioxide, total [Moles /volume] in Central venous bloodOrdered By: Kellie Juarez on 11-03-2024 CO2 [Moles/Vol] 19.5 mmol/L Low 21.0-32.0 [facility] Chloride assayOrdered By: Leroy carl Ann on 11-03-2024 Chloride [Moles/Vol] 103 mmol/L 98-108 [facility] Comprehensive Metabolic Prof ilon 11-03-2024 Albumin [Mass/Vol] 4.4 g/dL Normal 3.5-5.[address] [facility] Comment on above: Performed By: #### L 100.0100, L501.9520, L500.4050, L501.9060 #### [facility] [address] [place], [address] Albumin/Globulin [Mass ratio] 1.1 {ratio} Normal 0.9-2.4 [facility] Comment on above: Performed By: #### L 100.0100, L501.9520, L500.4050, L501.9060 #### [facility] [address] [place], [address] ALK PHOS 77 U/L Normal 40-129 [facility] Comment on above: Performed By: #### L 100.0100, L501.9520, L500.4050, L501.9060 #### [facility] [address] [place], [address] ALT [Catalytic activity/Vol] 31 U/L Normal <=46 [facility] Comment on above: Performed By: #### L 100.0100, L501.9520, L500.4050, L501.9060 #### [facility] [address] [place], [address] AST [Catalytic activity/Vol] 32 U/L Normal <=37 [facility] Comment on above: Performed By: #### L 100.0100, L501.9520, L500.4050, L501.9060 #### [facility] [address] [place], [address] Bilirubin [Mass/Vol] 0.57 mg/dL Normal 0.00-1.30 [facility] Comment on above: Performed By: #### L 100.0100, L501.9520, L500.4050, L501.9060 #### [facility] [address] [place], [address] BUN/CRE 13.9 RATIO Normal 10-20 [facility] Comment on above: Performed By: #### L 100.0100, L501.9520, L500.4050, L501.9060 #### [facility] [address] [place], [address] Calcium [Mass/Vol] 9.8 mg/dL Normal 7.6-11.[address] [facility] Comment on above: Performed By: #### L 100.0100, L501.9520, L500.4050, L501.9060 #### [facility] [address] [place], [address] Chloride [Moles/Vol] 103 mmol/L Normal 98-108 [facility] Comment on above: Performed By: #### L 100.0100, L501.9520, L500.4050, L501.9060 #### [facility] [address] [place], [address] CO2 [Moles/Vol] 19.5 mmol/L Low 21.0-32.0 [facility] Comment on above: Performed By: #### L 100.0100, L501.9520, L500.4050, L501.9060 #### [facility] [address] [place], [address] Creatinine [Mass/Vol] 0.82 mg/dL Normal 0.70-1.20 [facility] Comment on above: Performed By: #### L 100.0100, L501.9520, L500.4050, L501.9060 #### [facility] [address] [place], [address] GAP 13 Normal 5-15 [facility] Comment on above: Performed By: #### L 100.0100, L501.9520, L500.4050, L501.9060 #### [facility] [address] [place], [address] GFR/1.73 sq M.predicted among non-blacks MDRD (S/P/Bld) [Vol rate/Area] 110 mL/min/{1.73_m2} Normal >60 [facility] Comment on above: Result Comment: mL/m in/1.73m2 CKD-EPI Creatinine Equation (2020) Performed By: #### L 100.0100, L501.9520, L500.4050, L501.9060 #### [facility] [address] [place], [address] Globulin (S) [Mass/Vol] 4.0 g/dL Normal 2.2-4.2 [facility] Comment on above: Performed By: #### L 100.0100, L501.9520, L500.4050, L501.9060 #### [facility] [address] [place], [address] Glucose [Mass/Vol] 88 mg/dL Normal 70-[address] [facility] Comment on above: Performed By: #### L 100.0100, L501.9520, L500.4050, L501.9060 #### [facility] [address] [place], [address] Potassium [Moles/Vol] 4.3 mmol/L Normal 3.3-5.1 [facility] Comment on above: Performed By: #### L 100.0100, L501.9520, L500.4050, L501.9060 #### [facility] [address] [place], [address] Sodium [Moles/Vol] 135 mmol/L Normal 133-[address] [facility] Comment on above: Performed By: #### L 100.0100, L501.9520, L500.4050, L501.9060 #### [facility] [address] [place], [address] T PROT 8.4 g/dL Normal 5.9-8.4 [facility] Comment on above: Performed By: #### L 100.0100, L501.9520, L500.4050, L501.9060 #### [facility] [address] [place], [address] Urea nitrogen [Mass/Vol] 11 mg/dL Normal 4-19 [facility] Comment on above: Performed By: #### L 100.0100, L501.9520, L500.4050, L501.9060 #### [facility] [address] [place], [address] Eosinophil percentageOrdered By: Kellie Juarez on 11-03-2024 Eosinophils/100 WBC (Bld) 3.1 % 0-5 [facility] Erythrocyte distribution wid th ratioOrdered By: Geetalun Beam on 11-03-2024 Erythrocyte distribution width (RBC) [Ratio] 13.2 % 11.6-14.6 [facility] Erythrocyte distribution wid th standard deviationOrdered By: Kellie Beam on 11-03-2024 Erythrocyte distribution width (RBC) [Ratio] 45.3 fl High 35.1-43.9 [facility] Glomerular filtration rate ( GFR) estimation/1.73 sq m using serum, plasma, or whole bOrdered By: Kellie Juarez on 11-03-2024 GFR/1.73 sq M.predicted among non-blacks MDRD (S/P/Bld) [Vol rate/Area] 110 mL/min/{1.73_m2} >60 [facility] Comment on above: mL/min/1.73m2 CKD-EP I Creatinine Equation (2020) Hematocrit Auto (Bld) [Volum e fraction]Ordered By: Geetalun Beam on 11-03-2024 Hematocrit (Bld) [Volume fraction] 44.0 % 40-54 [facility] Hemoglobin measurementOrdere d By: Zebulun Beam on 11-03-2024 Hemoglobin (Bld) [Mass/Vol] 14.4 g/dL 13.0-16.5 [facility] Immature granulocytes/100 WB C Auto (Bld)Ordered By: Leroybulun Beam on 11-03-2024 Immature granulocytes/100 WBC (Bld) 0.400 % 0.0-0.9 [facility] Comment on above: IG% - Immature Granu locytes (promyelocytes, myelocytes and metamyelocytes) > 1% indicates that a LEFT SHIFT is Present. Laboratory - Chemistry and C hemistry - challengeOrdered By: Kellie Juarez on 11-03-2024 AST [Catalytic activity/Vol] 32 U/L <38 [facility] Lithiumon 11-03-2024 LI 0.64 mmol/L Normal 0.60-1.20 [facility] Comment on above: Order Comment: [id number] Performed By: #### L 100.0100, L501.9520, L500.4050, L501.9060 #### [facility] [address] [place], [address] MCV (mean corpuscular volume ) determinationOrdered By: Kellie Juarez on 11-03-2024 MCV (RBC) [Entitic vol] 94.0 fL 80-94 [facility] Mean corpuscular hemoglobin (MCH) determinationOrdered By: javierlucan Beam on 11-03-2024 MCH (RBC) [Entitic mass] 30.8 pg 27.0-32.0 [facility] Mean corpuscular hemoglobin concentration (MCHC) determinationOrdered By: bulun Beam on 11-03-2024 MCHC (RBC) [Mass/Vol] 32.7 g/dL 32-36 [facility] Mean platelet volume determi nationOrdered By: Geetalun Beam on 11-03-2024 Platelet mean volume (Bld) [Entitic vol] 11.7 fL 6.2-12.0 [facility] Monocyte percentageOrdered B y: Kellie Juarez on 11-03-2024 Monocytes/100 WBC (Bld) 7.4 % 0-10 [facility] Neutrophil percentageOrdered By: Zejavierlun Beam on 11-03-2024 Neutrophils/100 WBC (Bld) 79.2 % High 47-70 [facility] Nucleated red blood cell per centageOrdered By: Geetalun Beam on 11-03-2024 Nucleated RBC/100 WBC (Bld) [Ratio] 0 % 0-5 [facility] Platelet countOrdered By: Leroy Juarez on 11-03-2024 Platelets (Bld) [#/Vol] 157 10*3/uL 150-450 [facility] Potassium measurement (mass/ volume)Ordered By: Kellie Juarez on 11-03-2024 Potassium (Unsp spec) [Mass/Vol] 4.3 mmol/L 3.3-5.1 [facility] RBC Auto (Bld) [#/Vol]Ordere d By: Kellie Beam on 11-03-2024 RBC (Bld) [#/Vol] 4.68 10*6/uL 4.6-6.2 [facility] Serum creatinine measurement (mass/volume)Ordered By: Kellie Juarez on 11-03-2024 Creatinine [Mass/Vol] 0.82 mg/dL 0.70-1.20 [facility] Serum globulin measurementOr dered By: Kellie Juarez on 11-03-2024 Globulin (S) [Mass/Vol] 4.0 g/dL 2.2-4.2 [facility] Serum glucose measurement (m ass/volume)Ordered By: Kellie Beam on 11-03-2024 Glucose [Mass/Vol] 88 mg/dL 70-[address] [facility] Serum or plasma alanine brooks otransferase (ALT) measurementOrdered By: Kellie Beam on 11-03-2024 ALT [Catalytic activity/Vol] 31 U/L <47 [facility] Serum or plasma albumin janet urement (mass/volume)Ordered By: Kellie Beam on 11-03-2024 Albumin [Mass/Vol] 4.4 g/dL 3.5-5.[address] [facility] Serum or plasma albumin/glob ulin mass ratioOrdered By: Leroybulucan Beam on 11-03-2024 Albumin/Globulin [Mass ratio] 1.1 {ratio} 0.9-2.4 [facility] Serum or plasma alkaline stephane sphatase measurementOrdered By: Zebulun Beam on 11-03-2024 ALP [Catalytic activity/Vol] 77 U/L 40-129 [facility] Serum or plasma calcium janet urement (mass/volume)Ordered By: Zebulun Beam on 11-03-2024 Calcium [Mass/Vol] 9.8 mg/dL 7.6-11.[address] [facility] Serum or plasma urea nitroge n measurement (mass/volume)Ordered By: Zebulun Beam on 11-03-2024 Urea nitrogen [Mass/Vol] 11 mg/dL 4-19 [facility] Sodium levelOrdered By: Leroybu franco Beam on 11-03-2024 Sodium [Moles/Vol] 135 mmol/L 133-[address] [facility] TSH DL <= 0.005 mIU/L QnOrde red By: [facility] 11-03-2024 TSH Qn 1.270 uIU/mL 0.300-4.200 [facility] Thyroid Stim Hormone (TSH)on 11-03-2024 TSH 1.270 uIU/mL Normal 0.300-4.200 [facility] Comment on above: Performed By: #### L 100.0100, L501.9520, L500.4050, L501.9060 #### [facility] [address] [place], [address] Total proteinOrdered By: Carlos ulun Ann on 11-03-2024 Protein [Mass/Vol] 8.4 g/dL 5.9-8.[address] [facility] White blood cell (WBC) count Ordered By: Zesiddhartha Beam on 11-03-2024 WBC (Bld) [#/Vol] 12.6 10*3/uL High 4.4-11.[address] [facility] [address] HEAD OR BRAIN W/O CONTRAS Ton 10-01-2024 CT HEAD OR BRAIN W/O CONTRAST ORIGINAL EXAMINATION: CT HEAD TECHNIQUE: Axial CT images from skull base to vertex without IV contrast. This exam was performed according to our departmental dose optimization program, and includes the following measures where applicable: automated exposure control, adjustment of the mAs and/or kVp according to patient size and/or exam, and an iterative reconstruction algorithm. COMPARISON: None HISTORY: ORDERING SYSTEM PROVIDED HISTORY: Reason for Exam: Pt reports hitting his head on garage door yesterday. posterior head/neck pain. pain FINDINGS: Parenchyma: No acute intracranial hemorrhage, midline shift, mass effect or acute ischemic infarct is demonstrated. The sanchez-white matter junctions are preserved. No space occupying intra-axial masses or extra-axial fluid collections are seen. Mild parenchymal volume loss most pronounced in the cerebellar vermis and bilateral frontal lobes. Ventricles: No evidence of hydrocephalus or ventricular effacement. Vessels: No significant atherosclerotic calcifications. Orbits: Unremarkable. Calvarium: Unremarkable. Paranasal sinuses: Clear. Mastoid sinuses: Clear. IMPRESSION: 1. No acute intracranial pathology. 2. Mild parenchymal volume loss most pronounced in the cerebellar vermis and bilateral frontal lobes. Interpreted by: Susi Delgado MD Preliminary Report By: Susi Delgado MD Electronically signed By Susi Delgado MD Dictated Date: 10/01/2024 2:43:15 PM Prelim Date: 10/01/2024 2:44:39 PM Sign Date: 10/01/2024 2:44:39 PM Ordering Provider: LUDY Britt [facility] CT SPINE CERVICAL W/O CONTRA STocan 10-01-2024 CT SPINE CERVICAL W/O CONTRAST ORIGINAL EXAMINATION: CT OF THE CERVICAL SPINE WITHOUT CONTRAST TECHNIQUE: Multiple-row detector helical CT examination of the cervical spine without IV contrast. Axial, sagittal, and coronal reconstructed images. This exam was performed according to our departmental dose optimization program, and includes the following measures where applicable: automated exposure control, adjustment of the mAs and/or kVp according to patient size and/or exam, and an iterative reconstruction algorithm. COMPARISON: None. HISTORY: ORDERING SYSTEM PROVIDED HISTORY: Reason for Exam: Pt reports hitting his head on garage door yesterday. posterior head/neck pain. pain FINDINGS: No fracture or traumatic malalignment. There is straightening of the normal cervical lordosis without a listhesis. Vertebral body heights are maintained. The craniocervical junction is preserved. No aggressive osseous lesions are identified. Multilevel mild disc height loss and anterior spinal degenerative enthesopathy changes are present. The prevertebral and paraspinal soft tissues demonstrate no acute abnormality. The lung apices demonstrates emphysema and biapical scarring. Circumferential thickening of the upper esophagus is noted. IMPRESSION: 1. No acute fracture or traumatic malalignment. 2. Multilevel mild disc height loss and anterior spinal degenerative enthesopathy changes. 3. Circumferential thickening of the upper esophagus. Considerations include GERD and esophagitis. Interpreted by: Susi Delgado MD Preliminary Report By: Susi Delgado MD Electronically signed By Susi Delgado MD Dictated Date: 10/01/2024 3:06:15 PM Prelim Date: 10/01/2024 3:07:47 PM Sign Date: 10/01/2024 3:07:47 PM Ordering Provider: LUDY Britt [facility] 08-05-2024 CK [Catalytic activity/Vol] 162 U/L Normal 39-308 [facility] Comment on above: Performed By: #### C K #### [address] [address] .Auto Diffon 08-04-2024 Basophil, Absolute 0.1 10 3/mcL Normal 0.0-0.2 [facility] Comment on above: Performed By: #### A ARIANE, TROPHS, ADIFF, ACETA, GFR, CBC, ALC, CMP, MDW, TORSTEN #### [address] [address] Basophils/100 WBC (Bld) 0.7 % Normal 0.0-2.5 [facility] Comment on above: Performed By: #### A ARIANE, TROPHS, ADIFF, ACETA, GFR, CBC, ALC, CMP, MDW, TORSTEN #### [address] [address] Eosinophil, Absolute 0.1 10 3/mcL Normal 0.0-0.7 [facility] Comment on above: Performed By: #### A ARIANE, TROPHS, ADIFF, ACETA, GFR, CBC, ALC, CMP, MDW, TORSTEN #### [address] [address] Eosinophils/100 WBC (Bld) 0.5 % Normal 0.0-7.0 [facility] Comment on above: Performed By: #### A ARIANE, TROPHS, ADIFF, ACETA, GFR, CBC, ALC, CMP, MDW, TORSTEN #### [address] [address] Lymphocyte, Absolute 2.3 10 3/mcL Normal 0.9-4.3 [facility] Comment on above: Performed By: #### A ARIANE, TROPHS, ADIFF, ACETA, GFR, CBC, ALC, CMP, MDW, TORSTEN #### [address] [address] Lymphocytes/100 WBC (Bld) 18.6 % Low 20.0-40.0 [facility] Comment on above: Performed By: #### A ARIANE, TROPHS, ADIFF, ACETA, GFR, CBC, ALC, CMP, MDW, TORSTEN #### [address] [address] Monocyte, Absolute 0.8 10 3/mcL Normal 0.1-1.4 [facility] Comment on above: Performed By: #### A ARIANE, TROPHS, ADIFF, ACETA, GFR, CBC, ALC, CMP, MDW, TORSTEN #### [address] [address] Monocytes/100 WBC (Bld) 6.6 % Normal 2.0-13.0 [facility] Comment on above: Performed By: #### A ARIANE, TROPHS, ADIFF, ACETA, GFR, CBC, ALC, CMP, MDW, TORSTEN #### [address] [address] Neutrophils/100 WBC (Bld) 73.6 % Normal 50.0-75.0 [facility] Comment on above: Performed By: #### A ARIANE, TROPHS, ADIFF, ACETA, GFR, CBC, ALC, CMP, MDW, TORSTEN #### [address] [place] [address] .GFRon 08-04-2024 Estimated Glomerular Filtration Rate 65 ml/min/1.73sqm Normal [facility] Comment on above: Result Comment: Stages of Chronic Kidney Disease (CKD) Stage Description eGFR(ml/min/1.73 sq.m.) CKD 1 Normal kidney function or >=90 normal kindney function with possible kidney damage (ex. Proteinuria) CKD 2 Kidney damage with mild loss 60-89 of kidney function CKD 3a Mild to moderate loss of kidney 45-59 function CKD 3b Moderate to severe loss of 30-44 of kindey function CKD 4 Severe loss of kidney function 15-29 CKD 5 Kidney failure <15 Note: (go live 2024) the eGFR calculation was updated to the 2020 CKD-EPI creatinine equation without a race factor to calculate the eGFR results. Performed By: #### A ARIANE, TROPHS, ADIFF, ACETA, GFR, CBC, ALC, CMP, MDW, TORSTEN ####[address] [address] .MDWon 08-04-2024 Monocyte Distribution Width 17.55 Normal 0.00-20.00 [facility] Comment on above: Result Comment: For ED adult patients suspected of sepsis, MDW<=20.0 does not rule out sepsis or risk of sepsis Performed By: #### A ARIANE, TROPHS, ADIFF, ACETA, GFR, CBC, ALC, CMP, MDW, TORSTEN ####[address] [address] .NEUABSon 08-04-2024 Neutrophil, Absolute 9.2 10 3/mcL High 2.3-8.1 [facility] Comment on above: Performed By: #### A ARIANE, TROPHS, ADIFF, ACETA, GFR, CBC, ALC, CMP, MDW, TORSTEN #### [address] [address] ACETAon 08-04-2024 Acetaminophen [Mass/Vol] 0.0 ug/mL Low 10.0-30.0 [facility] Comment on above: Performed By: #### A ARIANE, TROPHS, ADIFF, ACETA, GFR, CBC, ALC, CMP, MDW, TORSTEN ####[address] [address] Derek 08-04-2024 Ethanol Level 6 mg/dL Normal [facility] Comment on above: Performed By: #### A ARIANE, TROPHS, ADIFF, ACETA, GFR, CBC, ALC, CMP, MDW, TORSTEN ####[place] [address] CBCon 08-04-2024 Erythrocyte distribution width (RBC) [Ratio] 13.5 % Normal 11.5-15.5 [facility] Comment on above: Performed By: #### A ARIANE, TROPHS, ADIFF, ACETA, GFR, CBC, ALC, CMP, MDW, TORSTEN #### [address] [address] Hematocrit (Bld) [Volume fraction] 41.6 % Normal 40.0-52.0 [facility] Comment on above: Performed By: #### A ARIANE, TROPHS, ADIFF, ACETA, GFR, CBC, ALC, CMP, MDW, TORSTEN #### [address] [address] Hgb 14.1 G/dL Normal 13.0-17.5 [facility] Comment on above: Performed By: #### A ARIANE, TROPHS, ADIFF, ACETA, GFR, CBC, ALC, CMP, MDW, TORSTEN #### [place] [address] MCH (RBC) [Entitic mass] 31.0 pg Normal 27.0-33.0 [facility] Comment on above: Performed By: #### A ARIANE, TROPHS, ADIFF, ACETA, GFR, CBC, ALC, CMP, MDW, TORSTEN #### [address] [address] MCHC 33.8 G/dL Normal 32.0-36.0 [facility] Comment on above: Performed By: #### A ARIANE, TROPHS, ADIFF, ACETA, GFR, CBC, ALC, CMP, MDW, TORSTEN #### [address] [address] MCV (RBC) [Entitic vol] 91.7 fL Normal 81.0-100.0 [facility] Comment on above: Performed By: #### A ARIANE, TROPHS, ADIFF, ACETA, GFR, CBC, ALC, CMP, MDW, TORSTEN #### [address] [address] Platelet 208 10 3/mcL Normal 150-450 [facility] Comment on above: Performed By: #### A ARIANE, TROPHS, ADIFF, ACETA, GFR, CBC, ALC, CMP, MDW, TORSTEN #### [address] [address] Platelet mean volume (Bld) [Entitic vol] 9.0 fL Normal 6.4-10.5 [facility] Comment on above: Performed By: #### A ARIANE, TROPHS, ADIFF, ACETA, GFR, CBC, ALC, CMP, MDW, TORSTEN #### [address] [address] RBC 4.53 10 6/mcL Normal 4.50-6.00 [facility] Comment on above: Performed By: #### A ARIANE, TROPHS, ADIFF, ACETA, GFR, CBC, ALC, CMP, MDW, TORSTEN #### [address] [address] WBC 12.5 10 3/mcL High 4.5-10.8 [facility] Comment on above: Performed By: #### A ARIANE, TROPHS, ADIFF, ACETA, GFR, CBC, ALC, CMP, MDW, TORSTEN #### [address] [address] CMPon 08-04-2024 Albumin Level 4.1 G/dL Normal 3.5-5.0 [facility] Comment on above: Performed By: #### A ARIANE, TROPHS, ADIFF, ACETA, GFR, CBC, ALC, CMP, MDW, TORSTEN ####[address] [address] Albumin/Globulin [Mass ratio] 1.1 {ratio} Normal 1.1-2.5 [facility] Comment on above: Performed By: #### A ARIANE, TROPHS, ADIFF, ACETA, GFR, CBC, ALC, CMP, MDW, TORSTEN ####[facility] [place], [place] [address] ALP [Catalytic activity/Vol] 86 U/L Normal 40-135 [facility] Comment on above: Performed By: #### A ARIANE, TROPHS, ADIFF, ACETA, GFR, CBC, ALC, CMP, MDW, TORSTEN ####[place] [address] [place] [address] ALT [Catalytic activity/Vol] 112 U/L High 16-63 [facility] Comment on above: Performed By: #### A ARIANE, TROPHS, ADIFF, ACETA, GFR, CBC, ALC, CMP, MDW, TORSTEN ####[place] [address] AST [Catalytic activity/Vol] 53 U/L High 10-40 [facility] Comment on above: Performed By: #### A ARIANE, TROPHS, ADIFF, ACETA, GFR, CBC, ALC, CMP, MDW, TORSTEN ####[place] [address] [place] [id number] Bili Total 0.4 mg/dL Normal 0.2-1.0 [facility] Comment on above: Result Comment: Use of this assay is not recommended for patients undergoing treatment with eltrombopag due to the potential for falsely elevated results. Performed By: #### A ARIANE, TROPHS, ADIFF, ACETA, GFR, CBC, ALC, CMP, MDW, TORSTEN ####[place] [address] [place] [address] BUN/Creatinine Ratio 12 ratio Normal 7-27 [facility] Comment on above: Performed By: #### A ARIANE, TROPHS, ADIFF, ACETA, GFR, CBC, ALC, CMP, MDW, TORSTEN ####[place] [address] [place] [address] Calcium [Mass/Vol] 9.0 mg/dL Normal 8.4-10.2 [facility] Comment on above: Performed By: #### A ARIANE, TROPHS, ADIFF, ACETA, GFR, CBC, ALC, CMP, MDW, TORSTEN ####[address] [address] Chloride [Moles/Vol] 103 mmol/L Normal 98-107 [facility] Comment on above: Performed By: #### A ARIANE, TROPHS, ADIFF, ACETA, GFR, CBC, ALC, CMP, MDW, TORSTEN ####[place] [id number] CO2 [Moles/Vol] 28 mmol/L Normal 22-29 [facility] Comment on above: Performed By: #### A ARIANE, TROPHS, ADIFF, ACETA, GFR, CBC, ALC, CMP, MDW, TORSTEN ####[address] [address] Creatinine [Mass/Vol] 1.37 mg/dL High 0.70-1.30 [facility] Comment on above: Result Comment: Test ing performed on Siemens Dimension EXL analyzer using a modified kinetic Elkin technique. Performed By: #### A ARIANE, TROPHS, ADIFF, ACETA, GFR, CBC, ALC, CMP, MDW, TORSTEN ####[address] [address] Electrolyte Balance 6.0 mEq/L Normal 4.0-15.0 [facility] Comment on above: Performed By: #### A ARIANE, TROPHS, ADIFF, ACETA, GFR, CBC, ALC, CMP, MDW, TORSTEN ####[address] [address] Globulin 3.9 G/dL High 1.5-3.8 [facility] Comment on above: Performed By: #### A ARIANE, TROPHS, ADIFF, ACETA, GFR, CBC, ALC, CMP, MDW, TORSTEN ####[place] [id number] Glucose [Mass/Vol] 90 mg/dL Normal 70-105 [facility] Comment on above: Performed By: #### A ARIANE, TROPHS, ADIFF, ACETA, GFR, CBC, ALC, CMP, MDW, TORSTEN ####[address] [address] Potassium [Moles/Vol] 3.9 mmol/L Normal 3.5-5.1 [facility] Comment on above: Performed By: #### A ARIANE, TROPHS, ADIFF, ACETA, GFR, CBC, ALC, CMP, MDW, TORSTEN ####[address] [address] Sodium [Moles/Vol] 137 mmol/L Normal 136-145 [facility] Comment on above: Performed By: #### A ARIANE, TROPHS, ADIFF, ACETA, GFR, CBC, ALC, CMP, MDW, TORSTEN ####[place] [address] Total Protein 8.0 G/dL Normal 6.4-8.2 [facility] Comment on above: Performed By: #### A ARIANE, TROPHS, ADIFF, ACETA, GFR, CBC, ALC, CMP, MDW, TORSTEN ####[address] [address] Urea nitrogen [Mass/Vol] 17 mg/dL Normal 7-18 [facility] Comment on above: Performed By: #### A ARIANE, TROPHS, ADIFF, ACETA, GFR, CBC, ALC, CMP, MDW, TORSTEN ####[address] [address] CVFLURVon 08-04-2024 FLU A PCR Negative Normal Negative [facility] Comment on above: Performed By: #### C VFLURV #### [address] [address] FLU B PCR Negative Normal Negative [facility] Comment on above: Performed By: #### C VFLURV #### [address] [address] RSV PCR Negative Normal Negative [facility] Comment on above: Performed By: #### C VFLURV #### [address] [address] SARS-CoV-2 (COVID-19) RNA JAEL+probe Ql (Unsp spec) Negative Normal Negative [facility] Comment on above: Result Comment: Resu lts from the Xpert Xpress CoV-2/Flu/RSV plus test should be correlated with the clinical history, epidemiological data, and other data available to the clinical evaluating the patient. Performance of the Xpert Xpress CoV-2/Flu/RSV plus test has only been established in nasopharyngeal swab specimen. Erroneous test results might occur from improper specimen collection, failure to follow the recommended sample collection, handling and storage procedures, technical error, or sample mix-up. False negative results may occur if a virus is present at a level below the analytical limit of detection. Viral nucleic acid may persist in vivo, independent of virus viability. Detection of analyte target(s) does not imply that the corresponding virus(es) are infectious or are the causative agents for clinical symptoms. Recent patient exposure to FluMist or other live attenuated influenza vaccines may cause inaccurate positive results. Performed By: #### C VFLURV #### [address] [address] SALon 08-04-2024 Salicylate Level 4.2 mg/dL Normal 2.8-20.0 [facility] Comment on above: Performed By: #### A ARIANE, TROPHS, ADIFF, ACETA, GFR, CBC, ALC, CMP, MDW, TORSTEN ####[facility] [place], [place] [address] TROPHSon 08-04-2024 High Sensitivity Troponin I <4 Normal 0-76 [facility] Comment on above: Result Comment: High Sensitive Troponin I Reference Ranges: Female: 0-51 ng/L Male: 0-76 ng/L Testing performed on ICRTec using a homogeneous sandwich chemiluminescent immunoassay based on [employer] technology. Performed By: #### A ARIANE, TROPHS, ADIFF, ACETA, GFR, CBC, ALC, CMP, MDW, TORSTEN ####[place] [address] [place], [place] [address] UDRUGon 08-04-2024 Amphetamine (u) Negative Normal Negative [facility] Comment on above: Performed By: #### U OXYS, UFENTS #### [place] [id number] #### UDRUG #### [address] [address] Barbiturate (u) Negative Normal Negative [facility] Comment on above: Performed By: #### U OXYS, UFENTS #### [place] [address] #### UDRUG #### [address] [address] Benzodiazepine (u) Negative Normal Negative [facility] Comment on above: Performed By: #### U OXYS, UFENTS #### [place] [address] #### UDRUG #### [address] [address] Cannabinoid (u) Positive Abnormal Negative [facility] Comment on above: Performed By: #### U OXYS, UFENTS #### [place] [id number] #### UDRUG #### [address] [address] Cocaine Ql (U) Negative Normal Negative [facility] Comment on above: Performed By: #### U OXYS, UFENTS #### [place] [id number] #### UDRUG #### [address] [address] Methadone Ql (U) Negative Normal Negative [facility] Comment on above: Performed By: #### U OXYS, UFENTS #### [place] [id number] #### UDRUG #### [address] [address] Opiate (u) Negative Normal Negative [facility] Comment on above: Performed By: #### U OXYS, UFENTS #### [facility] [address] [place], [place] [address] #### UDRUG #### [address] [address] PCP (u) Negative Normal Negative [facility] Comment on above: Performed By: #### U OXYS, UFENTS #### [address] [address] #### UDRUG #### [address] [address] Urine Drugs screened: See Below Normal [facility] Comment on above: Result Comment: This drug screen is a presumptive screening only. No confirmation will be performed unless requested. Drugs screened include: Threshold Amphetamines/Methamphetamines 1,000 ng/mL Barbiturates 200 ng/mL Benzodiazepine metabolites 200 ng/mL Cannabinoids (THC metabolites) 50 ng/mL Cocaine 300 ng/mL Opiates 300 ng/mL Methadone 300 ng/mL Phencyclidine (PCP) 25 ng/mL Testing has been performed FOR MEDICAL PURPOSES ONLY. Performed By: #### U OXYS, UFENTS #### [place] [address] #### UDRUG #### [place] [address] UFENTSon 08-04-2024 Fentanyl (u) Negative Normal Negative [facility] Comment on above: Result Comment: Test ing has been performed FOR MEDICAL PURPOSES ONLY. Performed By: #### U OXYS, UFENTS #### [place] [address] #### UDRUG #### [address] [address] UOXYSon 08-04-2024 Oxycodone (u) Negative Normal Negative [facility] Comment on above: Result Comment: Test ing has been performed FOR MEDICAL PURPOSES ONLY. Performed By: #### U OXYS, UFENTS #### [place] [address] #### UDRUG #### [place] [address] 30on 06-25-2024 30 Problem: Sensory Perceptual Alteration as Evidenced by Goal: Discusses signs/symptoms of illness/treatment options 06/25/2024 1140 by Jessica Kelley RN Outcome: Completed 06/25/2024 1008 by Jessica Kelley RN Outcome: Progressing Goal: Initiates reality-based interactions 06/25/2024 1140 by Jessica Kelley RN Outcome: Completed 06/25/2024 1008 by Jessica Kelley RN Outcome: Progressing Goal: Able to discuss content of hallucinations/delu sions 06/25/2024 1140 by Jessica Kelley RN Outcome: Completed 06/25/2024 1008 by Jessica Kelley RN Outcome: Progressing Goal: Notifies staff when experiencing hallucinations/delu sions 06/25/2024 1140 by Jessica Kelley RN Outcome: Completed 06/25/2024 1008 by Jessica Kelley RN Outcome: Progressing Goal: Verbalizes reduction in hallucinations/delu sions 06/25/2024 1140 by Jessica Kelley RN Outcome: Completed 06/25/2024 1008 by Jessica Kelley RN Outcome: Progressing Goal: Will not act on psychotic perception 06/25/2024 1140 by Jessica Kelley RN Outcome: Completed 06/25/2024 1008 by Jessica Kelley RN Outcome: Progressing Normal [facility] 30 Problem: Sensory Perceptual Alteration as Evidenced by Goal: Discusses signs/symptoms of illness/treatment options Outcome: Progressing Goal: Initiates reality-based interactions Outcome: Progressing Goal: Able to discuss content of hallucinations/delu sions Outcome: Progressing Goal: Notifies staff when experiencing hallucinations/delu sions Outcome: Progressing Goal: Verbalizes reduction in hallucinations/delu sions Outcome: Progressing Goal: Will not act on psychotic perception Outcome: Progressing Normal [facility] [id number] 06-25-2024 [id number] Call placed to patient's mother. Stated she is able to pick patient up at 2pm. Informed her to call to unit when she arrives. Answered questions regarding Medicaid application. Discussed dc plan with patient of follow up with [facility] 07/05/24 for intake. Informed him of mother picking up at 2PM Verbalized understanding. Denied SI/HI/AVH, denied auditory/visual hallucinations. [facility] Nursing Noteon 06-25-2024 Nursing Note Dc teaching completed. Pt verbalizes understanding of discharge instructions. Normal [facility] Nursing Note Pt out for meals but then stays in his room. Flat affect. Pt states he still hears noises then he said voices. States they are the same. Asked pt if he felt ready to go home. Pt states its up to the doctors. Pt compliant with invega sustenna inj. Denies si/hi/vh. Voices no other concerns. [facility] 30on 06-24-2024 30 Problem: Sensory Perceptual Alteration as Evidenced by Goal: Discusses signs/symptoms of illness/treatment options Outcome: Progressing Goal: Initiates reality-based interactions Outcome: Progressing Goal: Able to discuss content of hallucinations/delu sions Outcome: Progressing Goal: Notifies staff when experiencing hallucinations/delu sions Outcome: Progressing Goal: Verbalizes reduction in hallucinations/delu sions Outcome: Progressing Goal: Will not act on psychotic perception Outcome: Progressing Normal [facility] Nursing Noteon 06-24-2024 Nursing Note Pt isolative to self and room. Pt guarded and withdrawn with blunted affect. Pt denies hallucinations at this time, denies SI/HI. Pt declined hs snack.Declined need for prn medication. Patient encourage to notify staff of any mental health concerns, changes in condition or any questions. Normal [facility] Nursing Note Pt pleasant, cooperative upon approach. Pt out for meals but retreative to his room most of the day. Pt states voices are the same. Denies si/hi/vh. No meds scheduled at this time. Minimal interaction with staff and peers. [facility] Progress Noteon 06-24-2024 Progress Note Nutrition rescreen completed. Chart reviewed. Patient to be monitored and followed by the diet turbine technician. [facility] [id number] 06-23-2024 [id number] Possible discharge to home on Friday following Invega cisterna booster. Social work continues to follow. [facility] Nursing Noteon 06-23-2024 Nursing Note Pt isolative to room and self. Pt presents as guarded, withdrawn and suspicious. Pt denies any mental health concerns. Denies any need for prn medications at this time. Patient encourage to notify staff of any mental health concerns, changes in condition or any questions. Normal [facility] Nursing Note Reports no SI, Hi or A/V hallucination when asked on assessment isolates and keeps to self or room took breakfast to room to eat cooperative and pleasant Normal [facility] Behavioral Health Treatment Planon 06-22-2024 Behavioral Health Treatment Plan Remain on unit. Compliant No SI/HI. Endorsing some AVH. Lessening in severity. Received Invega HARPER 06/21 234mg. Booster to be given in 4 weeks. Discharge plan will be home with mother when stable with follow up as scheduled. [facility] Nursing Noteon 06-22-2024 Nursing Note Patient withdrawn to self and isolated to room this evening. Patient is A&Ox4, pleasant and cooperative but guarded during assessment. Patient denies HI, SI, AVH. Patient encouraged to remain safe on unit and notify staff of any concerns. Patient did not come out of room for evening snack, but one was brought to him. Patient has no scheduled evening medications, denies pain. No additional concerns noted or voiced by Patient. Patient encouraged to notify staff of any needs. Safety checks continue every 15 minutes per unit protocol. Normal [facility] Nursing Note Isolating in room still only out to eat Normal [facility] Nursing Note Isolates to his room only out to eat reports no SI, HI or A/V hallucination when asked Normal [facility] Nursing Note Patient has been resting in room without incident. Normal [facility] Nursing Noteon 06-21-2024 Nursing Note Patient has been isolative to room this evening. Was anxious upon approach. Denies SI/HI/AVH but states that he has concerns about having cameras in his eyes. No PRN medications required and no scheduled meds this evening. Patient encouraged to seek staff member if feelings of suicide or homicide are experienced. Patient verbalized understanding. Normal [facility] Nursing Note Pt denies suicidal and homicidal ideation. Pt denies visual hallucinations and auditory hallucinations. Pt denies delusions but remains isolative to his room and is suspicious of others. Affect is constricted and mood is anxious. Overall cooperative. No scheduled psych meds at time of assessment. Patient encouraged to seek out staff with questions or concerns. Plan of care ongoing. [facility] Nursing Noteon 06-20-2024 Nursing Note Patient withdrawn to room this evening, sitting in bed in the dark. Patient is calm and cooperative but guarded with this nurse during assessment. Patient endorses eating and sleeping well. Appears paranoid and internally stimulated,continue s to make delusional statesments regarding cameras in his eyes and speakers in his ears. Patient compliant with evening medication, denies pain or discomfort. Mouth check complete. No additional concerns noted or voiced by Patient. Patient encouraged to notify staff of any needs. Normal [facility] Nursing Note Pt denies suicidal and homicidal ideation. Pt denies visual hallucinations and auditory hallucinations. Pt denies delusions but does appear suspicious of others. Affect is blunted and constricted and mood is anxious. Overall cooperative. He remains guarded and isolative to his room. No scheduled psych meds this shift. Patient encouraged to seek out staff with questions or concerns. Plan of care ongoing. [facility] 30on 06-19-2024 30 Problem: Sensory Perceptual Alteration as Evidenced by Goal: Initiates reality-based interactions Outcome: Progressing Goal: Able to discuss content of hallucinations/delu sions Outcome: Progressing Goal: Notifies staff when experiencing hallucinations/delu sions Outcome: Progressing Normal [facility] 30 Problem: Sensory Perceptual Alteration as Evidenced by Goal: Notifies staff when experiencing hallucinations/delu sions Outcome: Progressing Problem: Sensory Perceptual Alteration as Evidenced by Goal: Able to discuss content of hallucinations/delu sions Outcome: Progressing Problem: Sensory Perceptual Alteration as Evidenced by Goal: Verbalizes reduction in hallucinations/delu sions Outcome: Progressing [facility] Nursing Noteon 06-19-2024 Nursing Note Pt observed in bed, awake, in the dark. Pt did not come out of room for snack. Pt is calm and cooperative with assessment. Pt is compliant with invega, needing no encouragement. Pt denies pain and SI/HI. Pt denies AVH hallucinations when asked but states he is having trouble falling asleep because of the buzzing sound being transmitted to his ears. Pt expresses delusions stating they are zapping my brain and sending electrical currents through my head to myrick my brain cells when asked about his day. Pt reports having a pretty good day. This RN tried to reorient pt using logic, pt not receptive of reorientation techniques but does state that he tries to block out the sound. Pt encouraged to seek/call staff with any needs or concerns. Q15min safety checks continued. [facility] Nursing Note Patient was observed resting in bed this morning. Patient comes out of room at meal times, but returns to room afterward. Patient is calm and cooperative during interaction. Denies thoughts of SI/HI and hallucinations, but appears internally stimulated and paranoid. Patient believes he is being sent radio messages. Will continue to monitor. Encouraged patient to seek staff with any concerns. [facility] Progress Noteon 06-19-2024 Progress Note Nutrition update completed. Chart reviewed. Patient continues as a level 1. [facility] 30on 06-18-2024 30 Problem: Sensory Perceptual Alteration as Evidenced by Goal: Discusses signs/symptoms of illness/treatment options Outcome: Progressing Goal: Able to discuss content of hallucinations/delu sions Outcome: Progressing Goal: Will not act on psychotic perception Outcome: Progressing Problem: Anxiety Goal: Attempts to manage anxiety with help Outcome: Progressing Goal: Verbalizes ways to manage anxiety Outcome: Progressing Goal: Implements measures to reduce anxiety Outcome: Progressing Problem: Sensory Perceptual Alteration as Evidenced by Goal: Initiates reality-based interactions Outcome: Not Progressing Goal: Notifies staff when experiencing hallucinations/delu sions Outcome: Not Progressing Goal: Verbalizes reduction in hallucinations/delu sions Outcome: Not Progressing [facility] 30 Problem: Sensory Perceptual Alteration as Evidenced by Goal: Initiates reality-based interactions Outcome: Not Progressing Goal: Notifies staff when experiencing hallucinations/delu sions Outcome: Not Progressing Goal: Verbalizes reduction in hallucinations/delu sions Outcome: Not Progressing Pt is TOO due non compliance with treatment Problem: Sensory Perceptual Alteration as Evidenced by Goal: Cooperates with admission process Outcome: No Longer Appropriate Goal: Discusses signs/symptoms of illness/treatment options Outcome: Progressing Goal: Initiates reality-based interactions Outcome: Not Progressing Goal: Able to discuss content of hallucinations/delu sions Outcome: Progressing Goal: Notifies staff when experiencing hallucinations/delu sions Outcome: Not Progressing Goal: Verbalizes reduction in hallucinations/delu sions Outcome: Not Progressing Goal: Will not act on psychotic perception Outcome: Progressing Problem: Anxiety Goal: Patient/family understands admission protocols Outcome: No Longer Appropriate Goal: Attempts to manage anxiety with help Outcome: Progressing Goal: Verbalizes ways to manage anxiety Outcome: Progressing Goal: Implements measures to reduce anxiety Outcome: Progressing [facility] Nursing Noteon 06-18-2024 Nursing Note Shift assessment: Affect / Mood / Behavior: Thus far this shift, Pt has been mostly withdrawn to his room / sitting in the dark. On approach currently, Pt was guarded, But calm and superficially pleasant / friendly. Pt reports It's been good when questioned about mood. Pt's exhibited affect was congruent with reported mood. Pt's speech was WNL. Throughout this assessment, Pt was pacing around his room. Thought process & content: Pt's thought process was appropriate. Pt was minimally interactive / mostly answered assessment questions with brief / un-descriptive responses. Pt denied SI/ HI/ AH/ VH. A&O x4. However, Pt did report report that they are still sending radio messages to my ears and videos to my eyes. When asked to elaborate on these concerns pt declined. Pt denies additional concerns at this time. Body Systems/ vitals: 06/16/2024 7:34 AM 06/16/2024 7:20 PM 06/16/2024 7:21 PM 06/17/2024 7:35 AM 06/17/2024 7:39 PM 06/18/2024 7:42 AM 06/18/2024 7:50 PM Vitals Systolic 110 110 105 103 100 115 Diastolic 63 62 61 60 55 75 Heart Rate 61 66 68 57 64 53 70 Temp 37.4 ?C (99.3 ?F) 37.2 ?C (99 ?F) 36.9 ?C (98.5 ?F) 36.9 ?C (98.5 ?F) 36.8 ?C (98.2 ?F) 36.6 ?C (97.9 ?F) Resp 18 17 18 18 18 16 SpO2 98 % 96 % 97 % 95 % 97 % 99 % Pt up ambulating with stable gait. Pt denies current pain. Pt appears their stated age and causally groomed. Pt endorsed having no concerns with nutrition or sleep. Pt denied concerns with all other body systems at this time. Medications: Pt was initially hesitant to take his TOO Invega. However with encouragement and education about the TOO process, Pt took his scheduled Invega PO without difficulty. Pt also allowed RN to complete a mouth check afterwards to ensure compliance with TOO. Pt declined needing PRN medication at this time. Pt denied additional concerns at this time. RN encouraged Pt to seek staff support as needed throughout the shift. Pt verbalized understanding. [facility] Nursing Note Mom called in and is given update (Ifrah Weaver [phone]). [facility] Nursing Note Pt is seen in his room this morning for assessment. No scheduled medications due at this time. Pt is cooperative with assessment..pt reports sleep and appetite are good. Pt denies SI/HI and hallucinations. Pt presents as paranoid and guarded. Pt is isolative to his room other than meals and pacing around in the dark for the majority of the day.pt voices being fearful that he will be subjected to ECT if he spends too much time outside of his room. Pt did receive Zyprexa IM last night TOO due to refusal of scheduled invega. Pt denies any side effects from this and statesI don't feel any different. Pt also states they should not be injecting needles into people muscles and nerves. Pt is encouraged to accept oral invega tonight but states he will again refuses stating I don't take medications. Pts affect is flat and calm throughout entire entire interaction. pt denies physical complaints at this time and vitals are stable. Vitals: 06/18/24 0742 BP: 100/55 Pulse: 53 Resp: 18 Temp: 36.8 ?C (98.2 ?F) SpO2: 97% Pt is encouraged to attend groups and come to staff with needs. 15 minutes checks continued for safety per unit policy. [facility] 3006-17-2024 30 Problem: Sensory Perceptual Alteration as Evidenced by Goal: Cooperates with admission process Outcome: Progressing Goal: Discusses signs/symptoms of illness/treatment options Outcome: Progressing Goal: Initiates reality-based interactions Outcome: Progressing Goal: Able to discuss content of hallucinations/delu sions Outcome: Progressing Goal: Notifies staff when experiencing hallucinations/delu sions Outcome: Progressing Goal: Verbalizes reduction in hallucinations/delu sions Outcome: Progressing Goal: Will not act on psychotic perception Outcome: Progressing Problem: Anxiety Goal: Patient/family understands admission protocols Outcome: Progressing Goal: Attempts to manage anxiety with help Outcome: Progressing Goal: Verbalizes ways to manage anxiety Outcome: Progressing Goal: Implements measures to reduce anxiety Outcome: Progressing [facility] Nursing Noteon 06-17-2024 Nursing Note Pt remains withdrawn to room this evening. Pt denies thoughts of SI/HI/AV hallucinations at this time. Pt refusing to take scheduled invega after much encouragement and gone over the TOO process and that he would have to get IM zyprexa, pt verbalized understanding and still was refusing PO invega. Pt given IM zyprexa without issue. Pt denies wanting snack or other needs at this time. Pt encouraged to seek staff if any problems or concerns arise. Safety checks maintained per unit policy. [facility] Nursing Note Pt signed THIERRY or mom Ifrah Weaver. THIERRY placed in chart. [facility] Nursing Note Pt is seen in his room this morning for assessment and medications. Pt refuses scheduled nicotine patch. Pts speech is disorganized. Denies SI/HI. Pt states that he is eating and sleeping well. Pt states he is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 specimen Performed By: #### L AB17, LAB18, LAB46 ####Custodial Supervisor: CHU PRUITT ([phone])[facility]ITALDonita HINOJOSA RITTMAN (SWRLAB)[address] [place] [address] Triglyceride [Mass/Vol] 80 mg/dL Normal <150 [facility] Comment on above: Order Comment: Needs done, use existing specimen Performed By: #### L AB17, LAB18, LAB46 ####Custodial Supervisor: CHU PRUITT ([phone])[facility]OSPITALDonita ALCAZARASHISH RITTMAN (SWRLAB)[address] [place] [address] [place] VERY LOW DENSITY LIPOPROTEIN, CALCULATED 16 mg/dL Normal <=30 [facility] Comment on above: Order Comment: Needs done, use existing specimen Performed By: #### L AB17, LAB18, LAB46 ####Custodial Supervisor: CHU PRUITT ([phone])[facility] (RLAB)[address] [place] [address] SARS-COV-2 ANTIGENon 025 SARS-COV-2 ANTIGEN SARS-COV-2 ANTIGEN -BINAX Reference Negative Negative A negative result does not rule out the possibility of SARS-CoV-2 infection. NAAT-based methods should be considered for symptomatic patients presenting greater than seven days after onset of symptoms. Method: Lateral flow immunoassay. Fact sheets for healthcare providers and patients can be found at the following sites: https://www.fda.gov /media/458778/downl oad https://www.fda.gov /media/146038/downl oad Normal [facility] Comment on above: Performed By: #### L [id number] #### Custodial Supervisor: CHU KAYLAEZIO ([phone]) [facility] ([facility]) [address] [place] [address] CR Chest Portableon 04-30-20 18 CR Chest Portable Patient Name: GUILHERME WEAVER Diagnostic Radiology Exam Date/Time 04/30/2018 06:21:38 EST Exam CR Chest Portable Ordering Physician GIOVANNI MAHMOOD Accession Number [id number] CPT4 Codes 13819 () Reason For Exam chest pain Report CLINICAL INFORMATION: Chest pain. Portable view of the chest at 0615 hours is provided without comparison. FINDINGS: The cardiac silhouette and mediastinum are within normal limits. The lungs are free of infiltrate or pleural effusion. The visualized bones and soft tissues are grossly unremarkable. IMPRESSION: 1. No evidence of an acute cardiopulmonary process. Report Dictated on Workstation: [id number] Final Dictating Physician: MD DONOVAN JEFFREY Signed Date and Time: 04/30/2018 6:48 am Signed by: MD DONOVAN JEFFREY Transcribed Date and Time: 04/30/2018 6:49 Normal [facility] Comp Metabolic Panelon 04-30 ALP enzyme act/vol 71 U/L Normal 38-126 [facility] Comment on above: Performed By: #### H EMDF, CMP3, CK3, ETOH4 #### [facility] [address] [place] [address] ALT enzyme act/vol 49 U/L Normal 13-69 [facility] Comment on above: Performed By: #### H EMDF, CMP3, CK3, ETOH4 #### [facility] [employer] [facility] [address] [place] [address] AST enzyme act/vol 28 U/L Normal 15-46 [facility] Comment on above: Performed By: #### H EMDF, CMP3, CK3, ETOH4 #### [facility] [address] [place] [address] Bilirubin mass conc 0.4 mg/dL Normal 0.2-1.3 [facility] Comment on above: Performed By: #### H EMDF, CMP3, CK3, ETOH4 #### [facility] [employer] [facility] [address] [place] [address] Calcium mass conc 9.8 mg/dL Normal 8.4-10.4 [facility] Comment on above: Performed By: #### H EMDF, CMP3, CK3, ETOH4 #### [facility] [employer] [facility] [address] [place] [address] Glucose mass conc 88 mg/dL Normal 70-100 [facility] Comment on above: Performed By: #### H EMDF, CMP3, CK3, ETOH4 #### [facility] [employer] [facility] [address] [place] [address] Protein mass conc 8.5 g/dL High 6.3-8.2 [facility] Comment on above: Performed By: #### H EMDF, CMP3, CK3, ETOH4 #### [facility] [employer] [facility] [address] [place] [address] Urea nitrogen mass conc 11 mg/dL Normal 7-20 [facility] Comment on above: Performed By: #### H EMDF, CMP3, CK3, ETOH4 #### [facility] [address] [place] [address] Anion gap molar conc 13 Normal [facility] Comment on above: Performed By: #### H EMDF, CMP3, CK3, ETOH4 #### [facility] [address] [place] [address] CO2 molar conc 26 mmol/L Normal 22-30 [facility] Comment on above: Performed By: #### H EMDF, CMP3, CK3, ETOH4 #### [facility] [address] [place] [address] Creatinine mass conc 0.92 mg/dL Normal 0.52-1.25 [facility] Comment on above: Performed By: #### H EMDF, CMP3, CK3, ETOH4 #### [facility] [address] [place] [address] GFR/1.73 sq M predicted among blacks MDRD vol rate/area (S/P/Bld) mL/min/{1.73_m2} Normal >60 [facility] Comment on above: Performed By: #### H EMDF, CMP3, CK3, ETOH4 #### [facility] [address] [place] [address] GFR/1.73 sq M predicted among non-blacks MDRD vol rate/area (S/P/Bld) mL/min/{1.73_m2} Normal >60 [facility] Comment on above: Result Comment: Sour ce- MDRD equation with creatinine calibration to IDMS(NKDEP) eGFR not recommended for drug dose adjustment Performed By: #### H EMDF, CMP3, CK3, ETOH4 #### [facility] [address] [place] [address] Albumin mass conc 4.8 g/dL Normal 3.5-5.0 [facility] Comment on above: Performed By: #### H EMDF, CMP3, CK3, ETOH4 #### [facility] [address] [place] [address] Potassium molar conc 3.7 mmol/L Normal 3.5-5.1 [facility] Comment on above: Performed By: #### H EMDF, CMP3, CK3, ETOH4 #### [facility] [address] [place] [address] Sodium molar conc 138 mmol/L Normal 137-145 [facility] Comment on above: Performed By: #### H EMDF, CMP3, CK3, ETOH4 #### [facility] [address] [place] [address] Chloride molar conc 100 mmol/L Normal 98-107 [facility] Comment on above: Performed By: #### H EMDF, CMP3, CK3, ETOH4 #### [facility] [address] [place] [address] Ethanol Serum/Plasmaon 04-30 Ethanol-Serum/Plasma < 0.010 Normal 0.000-0.010 [facility] Comment on above: Result Comment: NOTE : This result is for medical treatment only. Analysis performed using non-forensic procedures. Performed By: #### H EMDF, CMP3, CK3, ETOH4 #### [facility] [address] [place] [address] Hemogram w/ Autodiffon 04-30 Erythrocyte distribution width Ratio (RBC) 13.0 % Normal 11.5-14.5 [facility] Comment on above: Performed By: #### H EMDF, CMP3, ETOH4, MD ZARAIFF ####[facility] [place] [address] Hematocrit Volume Fraction (Bld) 43.9 % Normal 40.0-52.0 [facility] Comment on above: Performed By: #### H EMDF, CMP3, ETOH4ZARA MDIFF ####[facility] [place] [address] Hemoglobin mass conc (Bld) 14.7 g/dL Normal 13.0-18.0 [facility] Comment on above: Performed By: #### H EMDF, CMP3, ETOH4, MD ZARAIFF ####[facility] [place] [address] MCH Entitic mass (RBC) 30.2 pg Normal 26.0-34.0 [facility] Comment on above: Performed By: #### H EMDF, CMP3, ETOH4, MD ZARAIFF ####[facility] [place] [address] MCHC mass conc (RBC) 33.5 % Normal 32.0-36.0 [facility] Comment on above: Performed By: #### H EMDF, CMP3, ETOH4, MD ZARAIFF ####[facility] [place] [address] MCV Entitic volume (RBC) 90.3 fL Normal 80.0-98.0 [facility] Comment on above: Performed By: #### H EMDF, CMP3, ETOH4, MD ZARAIFF ####[facility] [place] [address] Platelet mean volume Entitic volume (Bld) 8.7 fL Normal 7.4-10.4 [facility] Comment on above: Performed By: #### H EMDF, CMP3, ETOH4, MD ZARAIFF ####[facility] [place] [address] Platelets #/vol (Bld) 381 10*3/uL Normal 140-440 [facility] Comment on above: Performed By: #### H EMDF, CMP3, ETOH4, MD ZARAIFF ####[facility] [place] [address] RBC #/vol (Bld) 4.86 10*6/uL Normal 4.40-5.90 [facility] Comment on above: Performed By: #### H EMDF, CMP3, ETOH4, TROPMD CanIFF ####[facility] [place] [address] WBC #/vol (Bld) 8.3 10*3/uL Normal 3.6-10.7 [facility] Comment on above: Performed By: #### H EMDF, CMP3, ETOH4, TROPMD CanIFF ####[address] [place] [address] Manual Diffon 04-30-2018 RBC morphology finding Nom (Bld) Normal Normal [facility] Comment on above: Performed By: #### H EMDF, CMP3, CK3, ETOH4 #### [facility] [address] [place] [address] Abs Neutrophile Cnt 5.9 10*3/uL Normal 2.2-8.2 [facility] Comment on above: Performed By: #### H EMDF, CMP3, CK3, ETOH4 #### [facility] [address] [place] [address] Atypical Lymphocytes 3 % Abnormal <1 [facility] Comment on above: Performed By: #### H EMDF, CMP3, CK3, ETOH4 #### [facility] [address] [place] [address] Lymphocytes #/vol (Bld) 1.7 10*3/uL Normal 1.1-4.5 [facility] Comment on above: Performed By: #### H EMDF, CMP3, CK3, ETOH4 #### [facility] [address] [place] [address] Lymphocytes/100 WBC (Bld) 21 % Normal 20-40 [facility] Comment on above: Performed By: #### H EMDF, CMP3, CK3, ETOH4 #### [facility] [address] [place] [address] Monocytes #/vol (Bld) 0.4 10*3/uL Normal 0.2-1.1 [facility] Comment on above: Performed By: #### H EMDF, CMP3, CK3, ETOH4 #### [facility] [address] [place] [address] Monocytes/100 WBC (Bld) 5 % Normal 2-10 [facility] Comment on above: Performed By: #### H EMDF, CMP3, CK3, ETOH4 #### [facility] [address] [place] [address] Seg Neutrophils 71 % Normal 40-80 [facility] Comment on above: Performed By: #### H EMDF, CMP3, CK3, ETOH4 #### [facility] [address] [place] [address] Abs Baso Cnt 0.0 10*3/uL Normal 0.0-0.2 [facility] Comment on above: Performed By: #### H EMDF, CMP3, CK3, ETOH4 #### [facility] [address] [place] [address] Bands 0 % Normal 0-3 [facility] Comment on above: Performed By: #### H EMDF, CMP3, CK3, ETOH4 #### [facility] [address] [place] [address] Basophils/100 WBC (Bld) 0 % Normal 0-2 [facility] Comment on above: Performed By: #### H EMDF, CMP3, CK3, ETOH4 #### [facility] [address] [place] [address] Cells counted 100 Normal [facility] Comment on above: Performed By: #### H EMDF, CMP3, CK3, ETOH4 #### [facility] [address] [place] [address] Eosinophils #/vol (Bld) 0.0 10*3/uL Normal 0.0-0.5 [facility] Comment on above: Performed By: #### H EMDF, CMP3, CK3, ETOH4 #### [facility] [address] [place] [address] Eosinophils/100 WBC (Bld) 0 % Low 1-6 [facility] Comment on above: Performed By: #### H EMDF, CMP3, CK3, ETOH4 #### [facility] [address] [place] [address] Troponin Ion 04-30-2018 Troponin I.cardiac mass conc ng/mL Normal 0.000-0.034 [facility] Comment on above: Result Comment: 0.04 6 - 0.400 = Indeterminate > 0.400 = Consider Myocardial Injury Performed By: #### H EMDF, CMP3, CK3, ETOH4 #### [facility] [address] [place] [address] Basic Metabolic Panelon 12-24 Calcium mass conc 7.8 mg/dL Low 8.4-10.4 [facility] Comment on above: Performed By: #### H EMOSsuan, CK3, BMP3M ####[place] [address] [place] [address] Glucose mass conc 80 mg/dL Normal 70-100 [facility] Comment on above: Performed By: #### H EMOG, CK3, BMP3M ####[place] [address] [place] [address] Anion gap molar conc 4 Normal [facility] Comment on above: Performed By: #### H MICH, CK3, BMP3M ####[facility] [employer] [place] [address] [place] [address] CO2 molar conc 23 mmol/L Normal 22-30 [facility] Comment on above: Performed By: #### H MICH, CK3, BMP3M ####[place] [address] [place] [address] Creatinine mass conc 0.57 mg/dL Normal 0.52-1.25 [facility] Comment on above: Performed By: #### H MICH, CK3, BMP3M ####[place] [address] [place] [address] GFR/1.73 sq M predicted among blacks MDRD vol rate/area (S/P/Bld) mL/min/{1.73_m2} Normal >60 [facility] Comment on above: Performed By: #### H MICH, CK3, BMP3M ####[place] [address] [place] [address] GFR/1.73 sq M predicted among non-blacks MDRD vol rate/area (S/P/Bld) mL/min/{1.73_m2} Normal >60 [facility] Comment on above: Result Comment: Sour ce- MDRD equation with creatinine calibration to IDMS(NKDEP) eGFR not recommended for drug dose adjustment Performed By: #### H EMOG, CK3, BMP3M ####[place] [address] [place] [address] Urea nitrogen mass conc 9 mg/dL Normal 7-20 [facility] Comment on above: Performed By: #### H EMOSusan, CK3, BMP3M ####[facility] [place] [address] Chloride molar conc 108 mmol/L High 98-107 [facility] Comment on above: Performed By: #### H EMOG, CK3, BMP3M ####[facility] [place] [address] Potassium molar conc 3.9 mmol/L Normal 3.5-5.1 [facility] Comment on above: Performed By: #### H EMOG, CK3, BMP3M ####[facility] [place] [address] Sodium molar conc 136 mmol/L Low 137-145 [facility] Comment on above: Performed By: #### H EMOG, CK3, BMP3M ####[place] [address] [place] [address] CKon 01-07-2018 CK enzyme act/vol 931 U/L High 30-170 [facility] Comment on above: Performed By: #### C K3 ####[place] [address] [place] [address] CK enzyme act/vol 1004 U/L High 30-170 [facility] Comment on above: Performed By: #### H EMOG, CK3, BMP3M ####[facility] [place] [address] CK enzyme act/vol 1093 U/L High 30-170 [facility] Comment on above: Performed By: #### C K3 ####[place] [address] [place] [address] HIV 1,2 Ab; p24 Agon 018 HIV 1,2 Ab; p24 Ag NONREACTIVE Normal Nonreactive [facility] Comment on above: Result Comment: Resu lts obtained using the FDA cleared 4th generation HIV test. This test detects antibodies to HIV1, HIV2, HIV Group O, and the presence of the HIV-1 p24 antigen. A Non-Reactive re- sult indicates the patient is negative for both HIV antibody and HIV p24 antigen. All reactive results will undergo reflex confirmation testing at an additional charge. Performed By: #### H IV4 ####[facility] [place] [address] Hemogramon 01-07-2018 Erythrocyte distribution width Ratio (RBC) 13.5 % Normal 11.5-14.5 [facility] Comment on above: Performed By: #### H EMOG, CK3, BMP3M ####[facility] [place] [address] Hematocrit Volume Fraction (Bld) 38.7 % Low 40.0-52.0 [facility] Comment on above: Performed By: #### H EMOG, CK3, BMP3M ####[facility] [place] [address] Hemoglobin mass conc (Bld) 13.1 g/dL Normal 13.0-18.0 [facility] Comment on above: Performed By: #### H EMOG, CK3, BMP3M ####[facility] [place] [address] MCH Entitic mass (RBC) 31.8 pg Normal 26.0-34.0 [facility] Comment on above: Performed By: #### H EMOG, CK3, BMP3M ####[facility] [place] [address] MCHC mass conc (RBC) 33.7 % Normal 32.0-36.0 [facility] Comment on above: Performed By: #### H EMOG, CK3, BMP3M ####[facility] [place] [address] MCV Entitic volume (RBC) 94.2 fL Normal 80.0-98.0 [facility] Comment on above: Performed By: #### H EMOG, CK3, BMP3M ####[facility] [place] [address] Platelet mean volume Entitic volume (Bld) 9.2 fL Normal 7.4-10.4 [facility] Comment on above: Performed By: #### H EMOG, CK3, BMP3M ####[facility] [place] [address] Platelets #/vol (Bld) 91 10*3/uL Low 140-440 [facility] Comment on above: Performed By: #### H EMOG, CK3, BMP3M ####[facility] [place] [address] RBC #/vol (Bld) 4.11 10*6/uL Low 4.40-5.90 [facility] Comment on above: Performed By: #### H EMOG, CK3, BMP3M ####[facility] [place] [address] WBC #/vol (Bld) 7.5 10*3/uL Normal 3.6-10.7 [facility] Comment on above: Performed By: #### H EMOG, CK3, BMP3M ####[facility] [place] [address] [facility] enzyme act/vol 1188 U/L High 30-170 [facility] Comment on above: Performed By: #### C K3 ####[facility] [employer] [place] [address] [place] [address] CK enzyme act/vol 1205 U/L High 30-170 [facility] Comment on above: Performed By: #### C K3 ####[address] [place] [address] CK enzyme act/vol 1299 U/L High 30-170 [facility] Comment on above: Performed By: #### C K3 ####[place] [address] [place] [address] CK enzyme act/vol 1306 U/L High 30-170 [facility] Comment on above: Performed By: #### C K3 #### [facility] [employer] [facility] [address] [place] [address] [facility] 01[facility] CK enzyme act/vol 866 U/L High 30-170 [facility] Comment on above: Performed By: #### H EMDF, CMP3, CK3, ETOH4 #### [facility] [address] [place] [address] CR Ankle 3+ Views Lefton CR Ankle 3+ Views Left Patient Name: GUILHERME WEAVER Diagnostic Radiology Exam Date/Time 01/05/2018 15:48:46 EDT Exam CR Ankle 3+ Views Left Ordering Physician MD [facility] Accession Number [id number] CPT4 Codes 81584 () Reason For Exam trauma Report Left ankle TECHNIQUE: CLINICAL INDICATION: Trauma/pain COMPARISON: None FINDINGS: AP, lateral, and oblique views of the left ankle demonstrate no evidence of soft tissue swelling. There is no cortical or trabecular irregularity to suggest a fracture. Bones appear normal anatomic alignment with preservation of the ankle mortise. There is minimal dorsal midfoot osteophytosis. Tiny plantar and dorsal calcaneal enthesophytes. Along the posterior and plantar aspect of the calcaneus, there are numerous punctate soft tissue hyperdensities; correlate with radiopaque foreign body. IMPRESSION: 1.\X09\No evidence of fracture, subluxation, or other acute osseous abnormality the left ankle. 2.\X09\Along the posterior and plantar aspect of the calcaneus, there are numerous punctate soft tissue hyperdensities; correlate with radiopaque foreign body. Report Dictated on Final Dictating Physician: CIELO SANDERSON Signed Date and Time: 01/05/2018 3:51 pm Signed by: CIELO SANDERSON Transcribed Date and Time: 01/05/2018 3:52 Normal [facility] CR Tibia/Fibula [address] [facility] 01-05-2018 CR Tibia/Fibula 2 Views Right Patient Name: GUILHERME WEAVER Diagnostic Radiology Exam Date/Time 01/05/2018 15:48:46 EDT Exam CR Tibia/Fibula 2 Views Right Ordering Physician MD [facility] Accession Number [id number] CPT4 Codes 06359 () Reason For Exam trauma Report RIGHT TIBIA/FIBULA: CLINICAL INDICATION: Trauma, anterior leg pain TECHNIQUE: AP and Lateral COMPARISON: None. FINDINGS: There is no evidence for fracture or dislocation. No bone lesion is identified. There is no soft tissue abnormality. IMPRESSION: No fracture. Report Dictated on Final Dictating Physician: MD SYKES NICHOLAS Signed Date and Time: 01/05/2018 4:00 pm Signed by: MD SYKES NICHOLAS Transcribed Date and Time: 01/05/2018 4:01 Normal [facility] Comp Metabolic Panelon 01-05 ALP enzyme act/vol 69 U/L Normal 38-126 [facility] Comment on above: Performed By: #### H EMDF, CMP3, CK3, ETOH4 #### [facility] [address] [place] [address] ALT enzyme act/vol 39 U/L Normal 13-69 [facility] Comment on above: Performed By: #### H EMDF, CMP3, CK3, ETOH4 #### [facility] [address] [place] [address] Anion gap molar conc 11 Normal [facility] Comment on above: Performed By: #### H EMDF, CMP3, CK3, ETOH4 #### [facility] [address] [place] [address] AST enzyme act/vol 52 U/L High 15-46 [facility] Comment on above: Performed By: #### H EMDF, CMP3, CK3, ETOH4 #### [facility] [address] [place] [address] Bilirubin mass conc 1.0 mg/dL Normal 0.2-1.3 [facility] Comment on above: Performed By: #### H EMDF, CMP3, CK3, ETOH4 #### [facility] [address] [place] [address] Calcium mass conc 9.4 mg/dL Normal 8.4-10.4 [facility] Comment on above: Performed By: #### H EMDF, CMP3, CK3, ETOH4 #### [facility] [address] [place] [address] CO2 molar conc 24 mmol/L Normal 22-30 [facility] Comment on above: Performed By: #### H EMDF, CMP3, CK3, ETOH4 #### [facility] [address] [place] [address] Creatinine mass conc 1.07 mg/dL Normal 0.52-1.25 [facility] Comment on above: Performed By: #### H EMDF, CMP3, CK3, ETOH4 #### [facility] [address] [place] [address] GFR/1.73 sq M predicted among blacks MDRD vol rate/area (S/P/Bld) mL/min/{1.73_m2} Normal >60 [facility] Comment on above: Performed By: #### H EMDF, CMP3, CK3, ETOH4 #### [facility] [address] [place] [address] GFR/1.73 sq M predicted among non-blacks MDRD vol rate/area (S/P/Bld) mL/min/{1.73_m2} Normal >60 [facility] Comment on above: Result Comment: Sour ce- MDRD equation with creatinine calibration to IDMS(NKDEP) eGFR not recommended for drug dose adjustment Performed By: #### H EMDF, CMP3, CK3, ETOH4 #### [facility] [address] [place] [address] Glucose mass conc 111 mg/dL High 70-100 [facility] Comment on above: Performed By: #### H EMDF, CMP3, CK3, ETOH4 #### [facility] [address] [place] [address] Protein mass conc 7.9 g/dL Normal 6.3-8.2 [facility] Comment on above: Performed By: #### H EMDF, CMP3, CK3, ETOH4 #### [facility] [address] [place] [address] Urea nitrogen mass conc 20 mg/dL Normal 7-20 [facility] Comment on above: Performed By: #### H EMDF, CMP3, CK3, ETOH4 #### [facility] [address] [place] [address] Potassium molar conc 3.2 mmol/L Low 3.5-5.1 [facility] Comment on above: Performed By: #### H EMDF, CMP3, CK3, ETOH4 #### [facility] [address] [place] [address] Albumin mass conc 4.6 g/dL Normal 3.5-5.0 [facility] Comment on above: Performed By: #### H EMDF, CMP3, CK3, ETOH4 #### [facility] [address] [place] [address] Chloride molar conc 103 mmol/L Normal 98-107 [facility] Comment on above: Performed By: #### H EMDF, CMP3, CK3, ETOH4 #### [facility] [address] [place] [address] Sodium molar conc 139 mmol/L Normal 137-145 [facility] Comment on above: Performed By: #### H EMDF, CMP3, CK3, ETOH4 #### [facility] [address] [place] [address] Drugs of Abuseon 01-05-2018 Amphetamines, Ur Positive Normal [facility] Comment on above: Performed By: #### U AMAC, UAMIC, DRGA4 #### [facility] [address] [place] [address] Phencyclidine (PCP), Ur Negative Normal [facility] Comment on above: Result Comment: The expected value for all of the drugs listed above is Negative. The following drugs or drug groups have been screened for by Immunoassay at the following thresholds: Amphetamine class (1000 ng/mL), Barbiturates (200 ng/mL), Benzodiazepines (200 ng/mL), Cocaine (300 ng/mL), Methadone (300 ng/mL), Opiates (300 ng/mL), Oxycodone (100 ng/mL), and PCP (25 ng/mL). NOTE: These results are for medical treatment only. Analysis performed using non-forensic procedures. Performed By: #### U AMAC, UAMIC, DRGA4 #### [facility] [address] [place] [address] Opiates, Ur Positive Normal [facility] Comment on above: Performed By: #### U AMAC, UAMIC, DRGA4 #### [facility] [address] [place] [address] Cocaine, Ur Negative Normal [facility] Comment on above: Performed By: #### U AMAC, UAMIC, DRGA4 #### [facility] [address] [place] [address] Methadone, Ur Negative Normal [facility] Comment on above: Performed By: #### U AMAC, UAMIC, DRGA4 #### [facility] [address] [place] [address] Benzodiazepines, Ur Negative Normal [facility] Comment on above: Performed By: #### U AMAC, UAMIC, DRGA4 #### [facility] [address] [place] [address] Barbiturates, Ur Negative Normal [facility] Comment on above: Performed By: #### U AMAC, UAMIC, DRGA4 #### [facility] [address] [place] [address] Oxycodone/Oxymorphine,Ur Negative Normal [facility] Comment on above: Performed By: #### U AMAC, UAMIC, DRGA4 #### [facility] [address] [place] [address] Ethanol Serum/Plasmaon 01-05 Ethanol-Serum/Plasma < 0.010 Normal 0.000-0.010 [facility] Comment on above: Result Comment: NOTE : This result is for medical treatment only. Analysis performed using non-forensic procedures. Performed By: #### H EMDF, CMP3, CK3, ETOH4 #### [facility] [address] [place] [address] Hemogram w/ Autodiffon 01-05 Abs Baso Cnt 0.1 10*3/uL Normal 0.0-0.2 [facility] Comment on above: Performed By: #### H EMDF, CMP3, CK3, ETOH4 #### [facility] [address] [place] [address] Abs Neutrophile Cnt 10.4 10*3/uL High 1.8-7.0 [facility] Comment on above: Performed By: #### H EMDF, CMP3, CK3, ETOH4 #### [facility] [address] [place] [address] Basophils/100 WBC (Bld) 0.5 % Normal 0.0-2.0 [facility] Comment on above: Performed By: #### H EMDF, CMP3, CK3, ETOH4 #### [facility] [address] [place] [address] Eosinophils #/vol (Bld) 0.0 10*3/uL Normal 0.0-0.5 [facility] Comment on above: Performed By: #### H EMDF, CMP3, CK3, ETOH4 #### [facility] [address] [place] [address] Eosinophils/100 WBC (Bld) 0.3 % Low 1.0-6.0 [facility] Comment on above: Performed By: #### H EMDF, CMP3, CK3, ETOH4 #### [facility] [address] [place] [address] Erythrocyte distribution width Ratio (RBC) 13.2 % Normal 11.5-14.5 [facility] Comment on above: Performed By: #### H EMDF, CMP3, CK3, ETOH4 #### [facility] [address] [place] [address] Granulocytes/100 WBC (Bld) 77.5 % Normal 40.0-80.0 [facility] Comment on above: Performed By: #### H EMDF, CMP3, CK3, ETOH4 #### [facility] [address] [place] [address] Hematocrit Volume Fraction (Bld) 41.7 % Normal 40.0-52.0 [facility] Comment on above: Performed By: #### H EMDF, CMP3, CK3, ETOH4 #### [facility] [address] [place] [address] Hemoglobin mass conc (Bld) 14.4 g/dL Normal 13.0-18.0 [facility] Comment on above: Performed By: #### H EMDF, CMP3, CK3, ETOH4 #### [facility] [address] [place] [address] Lymphocytes #/vol (Bld) 2.0 10*3/uL Normal 1.0-4.3 [facility] Comment on above: Performed By: #### H EMDF, CMP3, CK3, ETOH4 #### [facility] [address] [place] [address] Lymphocytes/100 WBC (Bld) 15.2 % Low 20.0-40.0 [facility] Comment on above: Performed By: #### H EMDF, CMP3, CK3, ETOH4 #### [facility] [address] [place] [address] MCH Entitic mass (RBC) 31.8 pg Normal 26.0-34.0 [facility] Comment on above: Performed By: #### H EMDF, CMP3, CK3, ETOH4 #### [facility] [address] [place] [address] MCHC mass conc (RBC) 34.5 % Normal 32.0-36.0 [facility] Comment on above: Performed By: #### H EMDF, CMP3, CK3, ETOH4 #### [facility] [address] [place] [address] MCV Entitic volume (RBC) 92.3 fL Normal 80.0-98.0 [facility] Comment on above: Performed By: #### H EMDF, CMP3, CK3, ETOH4 #### [facility] [address] [place] [address] Monocytes #/vol (Bld) 0.9 10*3/uL High 0.0-0.8 [facility] Comment on above: Performed By: #### H EMDF, CMP3, CK3, ETOH4 #### [facility] [address] [place] [address] Monocytes/100 WBC (Bld) 6.5 % Normal 2.0-10.0 [facility] Comment on above: Performed By: #### H EMDF, CMP3, CK3, ETOH4 #### [facility] [address] [place] [address] Platelet mean volume Entitic volume (Bld) 8.8 fL Normal 7.4-10.4 [facility] Comment on above: Performed By: #### H EMDF, CMP3, CK3, ETOH4 #### [facility] [address] [place] [address] Platelets #/vol (Bld) 188 10*3/uL Normal 140-440 [facility] Comment on above: Performed By: #### H EMDF, CMP3, CK3, ETOH4 #### [facility] [address] [place] [address] RBC #/vol (Bld) 4.52 10*6/uL Normal 4.40-5.90 [facility] Comment on above: Performed By: #### H EMDF, CMP3, CK3, ETOH4 #### [facility] [address] [place] [address] WBC #/vol (Bld) 13.4 10*3/uL High 3.6-10.7 [facility] Comment on above: Performed By: #### H EMDF, CMP3, CK3, ETOH4 #### [facility] [address] [place] [address] Urinalysis,Macroon 8 Appearance Nom (U) CLOUDY Normal Clear [facility] Comment on above: Performed By: #### U AMAC, UAMIC, DRGA4 #### [facility] [address] [place] [address] Bilirubin,Ur Positive Normal Negative [facility] Comment on above: Performed By: #### U AMAC, UAMIC, DRGA4 #### [facility] [address] [place] [address] Color Nom (U) YELLOW Normal Lt. Yellow [facility] Comment on above: Performed By: #### U AMAC, UAMIC, DRGA4 #### [facility] [address] [place] [address] Glucose Ql (U) Negative Normal Negative [facility] Comment on above: Performed By: #### U AMAC, UAMIC, DRGA4 #### [facility] [address] [place] [address] Ketone,Urine 1 + mg/dL Normal Negative [facility] Comment on above: Performed By: #### U AMAC, UAMIC, DRGA4 #### [facility] [address] [place] [address] Nitrite Ql (U) Negative Normal Negative [facility] Comment on above: Performed By: #### U AMAC, UAMIC, DRGA4 #### [facility] [address] [place] [address] Occult Blood,Ur Negative Normal Negative [facility] Comment on above: Performed By: #### U AMAC, UAMIC, DRGA4 #### [facility] [address] [place] [address] pH (U) 6.0 Normal 5.0-8.0 [facility] Comment on above: Performed By: #### U AMAC, UAMIC, DRGA4 #### [facility] [address] [place] [address] Protein mass conc (U) 1 + mg/dL Normal Negative [facility] Comment on above: Performed By: #### U AMAC, UAMIC, DRGA4 #### [facility] [address] [place] [address] Specific [place],Urine 1.023 Normal 1.005-1.030 [facility] Comment on above: Performed By: #### U AMAC, UAMIC, DRGA4 #### [facility] [address] [place] [address] Urobilinogen Qn (U) 1.0 mg/dL Normal 0-1 [facility] Comment on above: Performed By: #### U AMAC, UAMIC, DRGA4 #### [facility] [address] [place] [address] WBC #/vol (Bld) Negative Normal Negative [facility] Comment on above: Performed By: #### U AMAC, UAMIC, DRGA4 #### [facility] [address] [place] [address] Urinalysis,Microscopicon Amorphous Urates Moderate (6-50) Normal Negative [facility] Comment on above: Performed By: #### U AMAC, UAMIC, DRGA4 #### [facility] [address] [place] [address] Bacteria LM.HPF #/area (Urine sed) Few (1-5) Normal Negative [facility] Comment on above: Performed By: #### U AMAC, UAMIC, DRGA4 #### [facility] [address] [place] [address] Cast, Granular 0 - [address] [facility] Comment on above: Performed By: #### U AMAC, UAMIC, DRGA4 #### [facility] [address] [place] [address] Cast, Hyaline 3 - 5 Normal 0-1 [facility] Comment on above: Performed By: #### U AMAC, UAMIC, DRGA4 #### [facility] [employer] [facility] [address] [place] [address] Epithelial cells LM.HPF #/area (Urine sed) 0 - 2 Normal 3-5 [facility] Comment on above: Performed By: #### U AMAC, UAMIC, DRGA4 #### [facility] [address] [place] [address] Mucous Threads Moderate Normal Negative [facility] Comment on above: Performed By: #### U AMAC, UAMIC, DRGA4 #### [facility] [address] [place] [address] RBC LM.HPF #/area (Urine sed) 0 - 2 Normal 0-2 [facility] Comment on above: Performed By: #### U AMAC, UAMIC, DRGA4 #### [facility] [address] [place] [address] WBC LM.HPF #/area (Urine sed) 6 - 10 Normal 0-5 [facility] Comment on above: Performed By: #### U AMAC, UAMIC, DRGA4 #### [facility] [address] [place] [address] Hemoglobin A1Con 12-25-2017 Glucose mass conc 105 mg/dL Normal [facility] Comment on above: Performed By: #### L IPD2, HA1C2 ####[facility] [place] [address] Hemoglobin A1c/Hemoglobin.total mass fraction (Bld) 5.3 % Normal 4.0-5.7 [facility] Comment on above: Result Comment: --Hg bA1C levels may not be accurate in patients who haverenal disease, received recent blood transfusions, are anemic,or who have dyshemoglobinemia. Performed By: #### L IPD2, HA1C2 ####[address] [id number] Lipid Panelon 12-25-2017 Cholesterol in HDL mass conc 42 mg/dL Normal 40-60 [facility] Comment on above: Performed By: #### L IPD2, HA1C2 ####[address] Cholesterol.total/Choles terol in HDL mass ratio 4 Normal [facility] Comment on above: Result Comment: Ref Range:< 3 Low Risk for CHD3-6 Mod Risk for CHD> 6 High Risk for CHD Performed By: #### L IPD2, HA1C2 ####[address] Protein mass conc 95 mg/dL Normal <100 [facility] Comment on above: Performed By: #### L IPD2, HA1C2 ####[address] Cholesterol mass conc 147 mg/dL Normal < 200 [facility] Comment on above: Performed By: #### L IPD2, HA1C2 ####[address] Triglyceride mass conc 50 mg/dL Normal <150 [facility] Comment on above: Performed By: #### L IPD2, HA1C2 ####[address] Basic Metabolic Panelon Calcium mass conc 9.1 mg/dL Normal 8.4-10.4 [facility] Comment on above: Performed By: #### H EMDF, BMP3, ETOH4 ####[address] [address] Glucose mass conc 91 mg/dL Normal 70-100 [facility] Comment on above: Performed By: #### H EMDF, BMP3, ETOH4 ####[address] [place] Urea nitrogen mass conc 14 mg/dL Normal 7-20 [facility] Comment on above: Performed By: #### H EMDF, BMP3, ETOH4 ####[place] [address] [place], [place] Anion gap 3 molar conc 6 Normal [facility] Comment on above: Performed By: #### H EMDF, BMP3, ETOH4 ####[place] [address] [address] [place], [place] CO2 molar conc 31 mmol/L High 22-30 [facility] Comment on above: Performed By: #### H EMDF, BMP3, ETOH4 ####[address] Creatinine mass conc 0.76 mg/dL Normal 0.52-1.25 [facility] Comment on above: Performed By: #### H EMDF, BMP3, ETOH4 ####[place] [address] [address] [place], [place] GFR/1.73 sq M predicted among blacks MDRD vol rate/area (S/P/Bld) mL/min/{1.73_m2} Normal >60 [facility] Comment on above: Performed By: #### H EMDF, BMP3, ETOH4 ####[place] [address] [place], [place] GFR/1.73 sq M predicted among non-blacks MDRD vol rate/area (S/P/Bld) mL/min/{1.73_m2} Normal >60 [facility] Comment on above: Result Comment: Sour ce- MDRD equation with creatinine calibration to IDMS(NKDEP) eGFR not recommended for drug dose adjustment Performed By: #### H EMDF, BMP3, ETOH4 ####[place] [address] [place], [place] Potassium molar conc 3.0 mmol/L Low 3.5-5.1 [facility] Comment on above: Performed By: #### H EMDF, BMP3, ETOH4 ####[facility] [place] [address] Sodium molar conc 140 mmol/L Normal 137-145 [facility] Comment on above: Performed By: #### H EMDF, BMP3, ETOH4 ####[facility] [place] [address] Chloride molar conc 103 mmol/L Normal 98-107 [facility] Comment on above: Performed By: #### H EMDF, BMP3, ETOH4 ####[facility] [place] [address] CT Head or Brain w/o Contras ton 12-24-2017 CT Head or Brain w/o Contrast Patient Name: GUILHERME WEAVER CT Exam Date/Time 12/24/2017 13:40:[address] Head or Brain w/o Contrast Ordering Physician MD [facility] Accession Number [id number] CPT4 Codes 83681 () Reason For Exam psychosis Report UNENHANCED HEAD CT History: Psychosis Comparison: None available Technique: Multislice axial CT sections obtained from the base to the vertex of the brain without IV contrast enhancement. Multiplanar sagittal and coronal reconstructed images also obtained. Findings: The cortical sulci, fissures, and ventricles are within normal limits in size. There is no hemorrhage, midline shift, abnormal densities, or other mass effect in the brain. The exam is limited without IV contrast enhancement. There is mucosal thickening of the visualized paranasal sinuses. The bilateral mastoid air cells are clear. IMPRESSION: No evidence of acute intracranial process. Paranasal sinuses mucosal thickening. Report Dictated on Final Dictated: 12/24/2017 1:56 pm Dictating Physician: MD RICHARD AHMAD Signed Date and Time: 12/24/2017 2:00 pm Signed by: MD RICHARD AHMAD Transcribed Date and Time: 12/24/2017 1:56 Normal [facility] Drugs of Abuseon 12-24-2017 Amphetamines, Ur Positive Normal [facility] Comment on above: Performed By: #### T HC4, DRGA4 ####[facility] [place] [address] Opiates, Ur Negative Normal [facility] Comment on above: Performed By: #### T HC4, DRGA4 ####[facility] [place] [place] Phencyclidine (PCP), Ur Negative Normal [facility] Comment on above: Result Comment: The expected value for all of the drugs listedabove is Negative.The following drugs or drug groups have been screenedfor by Immunoassay at the following thresholds:Amphetamine class (1000 ng/mL), Barbiturates (200 ng/mL),Benzodiazepines (200 ng/mL), Cocaine (300 ng/mL),Methadone (300 ng/mL), Opiates (300 ng/mL),Oxycodone (100 ng/mL), and PCP (25 ng/mL).NOTE: These results are for medical treatment only.Analysis performed using non-forensic procedures. Performed By: #### T HC4, DRGA4 ####[place] [address] [address] [facility] [place] Cocaine, Ur Negative Normal [facility] Comment on above: Performed By: #### T HC4, DRGA4 ####[place] [address] [address] [facility] [place] Methadone, Ur Negative Normal [facility] Comment on above: Performed By: #### T HC4, DRGA4 ####[place] [address] [address] [facility] [place] Barbiturates, Ur Negative Normal [facility] Comment on above: Performed By: #### T HC4, DRGA4 ####[facility] [place] [address] Benzodiazepines, Ur Positive Normal [facility] Comment on above: Performed By: #### T HC4, DRGA4 ####[place] [address] [address] [facility] Oxycodone/Oxymorphine,Ur Negative Normal [facility] Comment on above: Performed By: #### T HC4, DRGA4 ####[address] Ethanol Serum/Plasmaon 12-24 Ethanol-Serum/Plasma < 0.010 Normal 0.000-0.010 [facility] Comment on above: Result Comment: NOTE : This result is for medical treatment only. Analysis performed using non-forensic procedures. Performed By: #### H EMDF, BMP3, ETOH4 ####[address] Hemogram w/ Autodiffon 12-24 Abs Baso Cnt 0.1 10*3/uL Normal 0.0-0.2 [facility] Comment on above: Performed By: #### H EMDF, BMP3, ETOH4 ####[address] Abs Neutrophile Cnt 7.2 10*3/uL High 1.8-7.0 [facility] Comment on above: Performed By: #### H EMDF, BMP3, ETOH4 ####[address] Basophils/100 WBC Auto (Bld) 1.1 % Normal 0.0-2.0 [facility] Comment on above: Performed By: #### H EMDF, BMP3, ETOH4 ####[address] Eosinophils Auto #/vol (Bld) 0.2 10*3/uL Normal 0.0-0.5 [facility] Comment on above: Performed By: #### H EMDF, BMP3, ETOH4 ####[address] Eosinophils/100 WBC Auto (Bld) 1.5 % Normal 1.0-6.0 [facility] Comment on above: Performed By: #### H EMDF, BMP3, ETOH4 ####[address] Erythrocyte distribution width Auto Ratio (RBC) 13.3 % Normal 11.5-14.5 [facility] Comment on above: Performed By: #### H EMDF, BMP3, ETOH4 ####[address] Granulocytes/100 WBC (Bld) 69.9 % Normal 40.0-80.0 [facility] Comment on above: Performed By: #### H EMDF, BMP3, ETOH4 ####[address] Hematocrit Auto Volume Fraction (Bld) 43.2 % Normal 40.0-52.0 [facility] Comment on above: Performed By: #### H EMDF, BMP3, ETOH4 ####[address] Hemoglobin mass conc (Bld) 14.6 g/dL Normal 13.0-18.0 [facility] Comment on above: Performed By: #### H EMDF, BMP3, ETOH4 ####[address] Lymphocytes Auto #/vol (Bld) 2.2 10*3/uL Normal 1.0-4.3 [facility] Comment on above: Performed By: #### H EMDF, BMP3, ETOH4 ####[address] Lymphocytes/100 WBC Auto (Bld) 21.6 % Normal 20.0-40.0 [facility] Comment on above: Performed By: #### H EMDF, BMP3, ETOH4 ####[address] MCH Auto Entitic mass (RBC) 31.5 pg Normal 26.0-34.0 [facility] Comment on above: Performed By: #### H EMDF, BMP3, ETOH4 ####[address] MCHC Auto mass conc (RBC) 33.7 % Normal 32.0-36.0 [facility] Comment on above: Performed By: #### H EMDF, BMP3, ETOH4 ####[address] [place] MCV Auto Entitic volume (RBC) 93.3 fL Normal 80.0-98.0 [facility] Comment on above: Performed By: #### H EMDF, BMP3, ETOH4 ####[address] Monocytes Auto #/vol (Bld) 0.6 10*3/uL Normal 0.0-0.8 [facility] Comment on above: Performed By: #### H EMDF, BMP3, ETOH4 ####[address] Monocytes/100 WBC Auto (Bld) 5.9 % Normal 2.0-10.0 [facility] Comment on above: Performed By: #### H EMDF, BMP3, ETOH4 ####[address] Platelet mean volume Auto Entitic volume (Bld) 9.3 fL Normal 7.4-10.4 [facility] Comment on above: Performed By: #### H EMDF, BMP3, ETOH4 ####[address] Platelets Auto #/vol (Bld) 199 10*3/uL Normal 140-440 [facility] Comment on above: Performed By: #### H EMDF, BMP3, ETOH4 ####[address] RBC Auto #/vol (Bld) 4.63 10*6/uL Normal 4.40-5.90 [facility] Comment on above: Performed By: #### H EMDF, BMP3, ETOH4 ####[address] WBC Auto #/vol (Bld) 10.3 10*3/uL Normal 3.6-10.7 [facility] Comment on above: Performed By: #### H EMDF, BMP3, ETOH4 ####[address] THC, Urineon 12-24-2017 THC, Ur Positive Normal [facility] Comment on above: Result Comment: Thre shold= 50 ng/mL Performed By: #### T HC4, DRGA4 ####[employer] [id number] [place] [address] Vital Signs Date Time Vital Sign Value Performing Clinician Faci pratibha 10-01-2024 15:34-0400 Diastolic Blood Pressure Non-Invasive 87 mm[Hg] DR MENDY OLVERA MD [facility] 10-01-2024 15:34-0400 Heart rate 103 /min DR MENDY OLVERA MD [facility] 10-01-2024 15:34-0400 Respiratory rate 16 /min DR MENDY OLVERA MD [facility] 10-01-2024 15:34-0400 Systolic Blood Pressure Non-Invasive 120 mm[Hg] DR MENDY OLVERA MD [facility] 10-01-2024 13:28-0400 Body temperature 98.6 [degF] DR MENDY OLVERA MD [facility] 10-01-2024 13:28-0400 Body weight 77.[address] MENDY OLVERA MD [facility] 10-01-2024 13:28-0400 Diastolic Blood Pressure Non-Invasive 84 mm[Hg] DR MENDY OLVERA MD [facility] 10-01-2024 13:28-0400 Heart rate 120 /min DR MENDY OLVERA MD [facility] 10-01-2024 13:28-0400 Respiratory rate 16 /min DR MENDY OLVERA MD [facility] 10-01-2024 13:28-0400 Systolic Blood Pressure Non-Invasive 120 mm[Hg] DR MENDY OLVERA MD [facility] Encounters Encounter Date Encounter Type Care Provider Facility Start: 02-09-2025 ambulatory Zebulun Beam Facility:[facility] Start: 02-03-2025 End: 02-03-2025 ambulatory Zebulun Beam [employer] Work Phone: [facility] Start: 02-03-2025 End: 02-03-2025 Patient encounter procedure Rebeca Pollock [employer] LEGAL ASSISTANT-C [facility] Start: 02-03-2025 End: 02-03-2025 ambulatory Zebulun Beam Facility:[facility] Start: 11-19-2024 End: 11-19-2024 ambulatory Zebulun Beam [employer]CIAL LEGAL ASSISTANT-C Work Phone: -[facility] Start: 11-19-2024 End: 11-19-2024 Patient encounter procedure Zebulun Beam FINANCIAL LEGAL ASSISTANT-C -[facility] Start: 11-19-2024 End: 11-19-2024 ambulatory Zebulun Beam Facility:[facility] Start: 11-03-2024 End: 11-03-2024 ambulatory Zebulun Beam [employer]CIAL LEGAL ASSISTANT-C Work Phone: [facility] Work Phone: Start: 11-03-2024 End: 11-03-2024 Patient encounter procedure Zebulun Beam FINANCIAL LEGAL ASSISTANT-C -[facility] Start: 11-03-2024 End: 11-03-2024 ambulatory Zebulun Beam Facility:[facility] Start: 10-01-2024 End: 10-01-2024 Emergency department patient visit DR MENDY OLVERA MD [facility] Start: 08-04-2024 End: 08-05-2024 Emergency department patient visit NONE PHYSICIAN Facility:[facility] Start: 06-07-2024 End: 06-25-2024 Evaluation and management of inpatient [facility] Start: 07-17-2018 Emergency department patient visit Lex [facility] Start: 07-17-2018 [facility] Start: 06-24-2018 Emergency department patient visit Jules Brizuela [facility] Start: 04-30-2018 Emergency department patient visit Giovanni Wal[facility] Start: 01-06-2018 Patient encounter procedure UNKNOWN PROVIDER [facility] Start: 01-05-2018 Emergency department patient visit UNKNOWN PROVIDER [facility] Start: 01-05-2018 Emergency department patient visit Ana Paula [facility] Start: 12-24-2017 Emergency department patient visit UNKNOWN PROVIDER [facility] Encounter for other general [facility] Procedures Date Procedure Procedure Detail Performing Clinician Start: 02-03-2025 [place] measurement [place] ulun Beam [employer]CIAL LEGAL ASSISTANT-C Work Phone: Start: 11-19-2024 Vitamin D, 25-hydrox y measurement Zebulun Beam [employer] LEGAL ASSISTANT-C Work Phone: Comment on above: Vitamin D StatusDefi ciency: <20 ng/mL (50nmol/L)Insufficiency: 20-30 ng/mL (50-75 nmol/L)Sufficiency: 30-100 ng/mL (75-250 nmol/L)Toxicity: >100 ng/mL (>250 nmol/L) Start: 11-03-2024 [place] measurement [place] ulun Beam FIN[employer]CIAL LEGAL ASSISTANT-C Work Phone: Payers Date Payer Category Payer Unknown 2024 Self-pay 2024 Unknown [id number] 1980 Unknown [id number] .16.8 [id number]. 1979 Unknown [id number] .16.8 [id number] 1979 Unknown [id number] .16.8 [id number] 1979 Unknown [id number] .. [id number] 1979 Unknown [id number] 2.16.8 [id number] 1979 Unknown [id number] 2.16.8 40.1.080667.3.579.2.668 1979 Unknown [id number] 2.16.8 [id number] 1979 Unknown [id number] 2.16.8 40.1.723878.3.579.2.627 1979 Unknown [id number] 2.16.8 [id number] 1979 Unknown [id number] 2.16.8 40.1.228886.3.579.2.627 1979 Unknown [id number] 2.16.8 [id number] 1979 Unknown [id number] 2.16.8 [id number] 1979 Unknown [id number] 2.16.8 [id number] Unknown [id number] 2.16.8 [id number] Unknown [id number] 2.16.8 [id number] Unknown [id number] 2.16.8 [id number] Unknown [id number] 2.16.8 [id number] Social History Date Type Detail Facility Tobacco smoking status [facility] Start: 1980 Sex Assigned At Male [facility] Start: 08-04-2024 Sex Male (finding) [facility] Start: 02-27-2018 [facility] Sex Male [facility] Functional Status Date Assessment Result Facility 10-01-2024 Functional Status Independent [facility] 10-01-2024 Functional Status Standard Safet y ID band on, Call device within reach, Bed in low position, Wheels locked, Visitor at bedside [facility] Mental Status Date Assessment Result Facility 10-01-2024 Mental Status Orientation Oriented x 4 [facility] 10-01-2024 Mental Status [facility] Clinical Notes 06-08-2024 to 10-01-2024 Note Date & Type Note Facility 10-01-2024 Hospital Discharg e instructions Patient Education 10/01/2024 15:15:55 Head Injury (Adult) Head Injury (Adult) You have a head injury. It does not appear serious at this time. But symptoms of a more serious problem, such as a mild brain injury (concussion) or bruising or bleeding in the brain, may appear later. For this reason, you or someone caring for you will need to watch for the symptoms listed below. Once you re home, also be sure to follow any care instructions you re given. Home care Watch for the following symptoms Seek emergency medical care if you have any of these symptoms over the next hours to days: Headache Nausea or vomiting Dizziness Sensitivity to light or noise Unusual sleepiness or grogginess Trouble falling asleep Personality changes Vision changes Memory loss Confusion Trouble walking or clumsiness Loss of consciousness (even for a short time) Inability to be awakened Stiff neck Weakness or numbness in any part of the body Seizures General care If you were prescribed medicines for pain, use them as directed. Note: Don t take other medicines for pain without talking to your provider first. To help reduce swelling and pain, apply a cold source to the injured area for up to 20 minutes at a time. Do this as often as directed. Use a cold pack or bag of ice wrapped in a thin towel. Never apply a cold source directly to the skin. If you have cuts or scrapes as a result of your head injury, care for them as directed. For the next 24 hours (or longer, if instructed): oDon t drink alcohol or use sedatives or other medicines that make you sleepy. oDon t drive or operate machinery. oDon t do anything strenuous, such as heavy lifting or straining. oLimit tasks that require concentration. This includes reading, using a smartphone or computer, watching TV, and playing video games. oDon t return to sports or other activities that could result in another head injury. Follow-up care Follow up with your healthcare provider, or as directed. If imaging tests were done, they will be reviewed by a doctor. You will be told the results and any new findings that may affect your care. When to seek medical advice Call your healthcare provider right away if any of these occur: Pain doesn t get better or worsens New or increased swelling or bruising Fever of 100.4 F (38 C) or higher, or as directed by your provider Increased redness, warmth, drainage, or bleeding from the injured area Fluid drainage or bleeding from the nose or ears Any depression or bony abnormality in the injured area Persistent confusion or lethargy Bruising behind the ears or bruising around the eyes [phone] [employer]. [address] [place] [address]. All rights reserved. This information is not intended as a substitute for professional medical care. Always follow your healthcare professional's instructions. 10/01/2024 15:15:51 Muscle Spasm Muscle Spasm A muscle spasm (also called a cramp) is an involuntary muscle contraction. The muscle tightens quickly and strongly. A hard lump may form in the muscle. Muscle spasms are very painful. Here's how to treat and prevent muscle spasms. What causes muscles to spasm? Often, the cause of a muscle spasm is not known. Muscle spasm is due to irritation of muscle fibers. Some things can make a muscle spasm more likely. These include: Injury Heavy exercise Overtired muscles A muscle held in one position for a long time Dehydration Low levels of certain minerals in the body Certain medicines, such as diuretics or water pills Certain medical conditions, such as kidney failure or diabetes Stopping a muscle spasm Muscle spasms often come and go quickly. When a muscle goes into spasm, very gently stretch and massage the muscle. This may help calm the muscle fibers. Then rest the muscle. Preventing muscle spasms Although there is little or no evidence that staying hydrated, taking certain vitamins or minerals, or stretching works to prevent cramps, these measures may help and have other benefits. Talk to your healthcare provider about steps to take to prevent muscle spasms. Try to: Drink enough fluids to prevent dehydration, especially when you exercise. Take vitamin or mineral supplements. Get regular exercise. Stretch regularly, especially before exercise. Limit caffeine and smoking. Take a prescription muscle relaxant. When to call your doctor Call your doctor if you have any of the following: Severe cramping Cramping that lasts a long time, does not go away with stretching, or keeps coming back Pain, tingling, or weakness in the arms or legs Pain that wakes you up at night [phone] [employer]. [address] [place] [address]. All rights reserved. This information is not intended as a substitute for professional medical care. Always follow your healthcare professional's instructions. Follow Up Care 10/01/2024 13:27:32 With:WHIT MORLEY MD, Obstetrics & Gynecology Address: [address] [place] [phone] When:2-4 days [facility] 10-01-2024 Note Discharge Instructions Thank you for allowing [facility] to assist you with your healthcare needs. The following is important discharge information regarding your hospital visit. Diagnosis from Today's Visit Closed head injury Neck muscle spasm What to Do Next Instructions from Your Care Team Hi. You were seen in the ED with neck pain following a closed head injury the night prior. Your examination did reveal a likely neck spasm. Imaging of your head and neck are negative. You received one dose of a muscle relaxer called cyclobenzaprine (Flexeril) while in the ED. We will provide a prescription for a muscle relaxer and an anti-inflammatory medication. Please follow-up with your primary care provider as outpatient. It was a pleasure taking care of you. No qualifying data available. Post Acute Orders No qualifying data available. You Need to Schedule the Following Appointments Follow Up with WHIT MORLEY MD, Obstetrics & Gynecology When:Within 2-4 days Where:[address] [place] [phone] Allergies No Known Medication Allergies Medications Please ask your primary doctor or pharmacist before taking any other medication not listed, including over the counter drugs, herbal medications, vitamins and or supplements as they may interact with your home medications. What How Much When Instructions Last Dose New cyclobenzaprine (cyclobenzaprine 5 mg oral tablet) 1 tab(s) by mouth Three (3) times a day as needed for Muscle spasm Duration: 7 Days Pickup at [place] [address] New naproxen (naproxen 500 mg oral delayed release tablet) 1 tab(s) by mouth Two (2) times a day as needed for Muscle pain Duration: 7 Days Pickup at [facility] 296 Unchanged cholecalciferol (Vitamin D3 25 mcg (1000 intl units) oral tablet) 1 tab(s) by mouth Once a day Unchanged clonazePAM (clonazePAM 1 mg oral tablet) 1 tab(s) by mouth Daily at bedtime Unchanged docusate-senna (Senexon-S 50 mg-8.6 mg oral tablet) Unchanged haloperidol (haloperidol 5 mg oral tablet) 1 tab(s) by mouth Two (2) times a day Unchanged lithium (lithium 150 mg oral capsule) 1 cap by mouth Every day Unchanged lithium (lithium 300 mg oral tablet, extended release) 1 tab(s) by mouth Two (2) times a day Unchanged melatonin (Melatonin 3 mg oral tablet) 1 tab(s) by mouth Daily at bedtime as needed for for insomnia Unchanged metFORMIN (metFORMIN 500 mg oral tablet (IR)) 1 tab(s) by mouth Two (2) times a day Unchanged paliperidone (Invega Sustenna 234 mg/ 1.5 mL intramuscular suspension, extended release) 1 Milliliter Intramuscular Once a month Unchanged paliperidone (paliperidone 3 mg oral tablet, extended release) 1 tab(s) by mouth Once a day (in the morning) Unchanged polyethylene glycol 3350 (polyethylene glycol 3350 oral powder for reconstitution) 17 gram(s) by mouth Once a day dissolve in 4 to 8 oz of beverage Pharmacy Information [place] [phone]: [phone] [place], [place] [id number] [phone] Please take this list to your next doctor s visit. Bring all medications you take, including over the counter medications, herbals and other supplements with you to your doctor s visit. Patients and families are reminded to discard old lists and to update any records with all medication providers or retail pharmacies. Medication Leaflets cyclobenzaprine (sye kloe ZEFERINO za preen) Amrix, Fexmid What is the most important information I should know about cyclobenzaprine? You should not use cyclobenzaprine if you have a thyroid disorder, heart block, congestive heart failure, a heart rhythm disorder, or you have recently had a heart attack. Do not use cyclobenzaprine if you have taken an MAO inhibitor in the past 14 days, such as isocarboxazid, linezolid, phenelzine, rasagiline, selegiline, or tranylcypromine. What is cyclobenzaprine? Cyclobenzaprine is a muscle relaxant. It works by blocking nerve impulses (or pain sensations) that are sent to your brain. Cyclobenzaprine is used together with rest and physical therapy to relieve muscle spasms caused by painful conditions such as an injury. Cyclobenzaprine may also be used for purposes not listed in this medication guide. What should I discuss with my healthcare provider before taking cyclobenzaprine? You should not use cyclobenzaprine if you are allergic to it, or if you have: a thyroid disorder; heart block, heart rhythm disorder, congestive heart failure; or if you have recently had a heart attack. Cyclobenzaprine is not approved for use by anyone younger than 15 years old. Do not use cyclobenzaprine if you have taken an MAO inhibitor in the past 14 days. A dangerous drug interaction could occur. MAO inhibitors include isocarboxazid, linezolid, phenelzine, rasagiline, selegiline, and tranylcypromine. Some medicines can interact with cyclobenzaprine and cause a serious condition called serotonin syndrome. Be sure your doctor knows if you also take stimulant medicine, opioid medicine, herbal products, or medicine for depression, mental illness, Parkinson's disease, migraine headaches, serious infections, or prevention of nausea and vomiting. Ask your doctor before making any changes in how or when you take your medications. Tell your doctor if you have ever had: liver disease; glaucoma; enlarged prostate; or problems with urination. It is not known whether this medicine will harm an unborn baby. Tell your doctor if you are or plan to become . It may not be safe to breast-feed while using this medicine. Ask your doctor about any risk. Older adults may be more sensitive to the effects of this medicine. How should I take cyclobenzaprine? Follow all directions on your prescription label and read all medication guides or instruction sheets. Your doctor may occasionally change your dose. Use the medicine exactly as directed. Cyclobenzaprine is usually taken once daily for only 2 or 3 weeks. Follow your doctor's dosing instructions very carefully. Swallow the capsule whole and do not crush, chew, break, or open it. Take the medicine at the same time each day. Call your doctor if your symptoms do not improve after 3 weeks, or if they get worse. Store at room temperature away from moisture, heat, and light. What happens if I miss a dose? Take the medicine as soon as you can, but skip the missed dose if it is almost time for your next dose. Do not take two doses at one time. What happens if I overdose? Seek emergency medical attention or call the Poison Help line at . An overdose of cyclobenzaprine can be fatal. Overdose symptoms may include severe drowsiness, vomiting, fast heartbeats, tremors, agitation, or hallucinations. What should I avoid while taking cyclobenzaprine? Avoid driving or hazardous activity until you know how this medicine will affect you. Your reactions could be impaired. Avoid drinking alcohol. Dangerous side effects could occur. What are the possible side effects of cyclobenzaprine? Get emergency medical help if you have signs of an allergic reaction: hives; difficult breathing; swelling of your face, lips, tongue, or throat. Stop using cyclobenzaprine and call your doctor at once if you have: fast or irregular heartbeats; chest pain or pressure, pain spreading to your jaw or shoulder; or sudden numbness or weakness (especially on one side of the body), slurred speech, balance problems. Seek medical attention right away if you have symptoms of serotonin syndrome, such as: agitation, hallucinations, fever, sweating, shivering, fast heart rate, muscle stiffness, twitching, loss of coordination, nausea, vomiting, or diarrhea. Serious side effects may be more likely in older adults. Common side effects may include: drowsiness, tiredness; headache, dizziness; dry mouth; or upset stomach, nausea, constipation. This is not a complete list of side effects and others may occur. Call your doctor for medical advice about side effects. You may report side effects to FDA at 7-787-SGE-4333. What other drugs will affect cyclobenzaprine? Using cyclobenzaprine with other drugs that make you drowsy can worsen this effect. Ask your doctor before using opioid medication, a sleeping pill, a muscle relaxer, or medicine for anxiety or seizures. Tell your doctor about all your other medicines, especially: bupropion (Zyban, for smoking cessation); meperidine; tramadol; verapamil; cold or allergy medicine that contains an antihistamine (Benadryl and others); medicine to treat Parkinson's disease; medicine to treat excess stomach acid, stomach ulcer, motion sickness, or irritable bowel syndrome; medicine to treat overactive bladder; or bronchodilator asthma medication. This list is not complete. Other drugs may affect cyclobenzaprine, including prescription and hadp-hkz-chckexf medicines, vitamins, and herbal products. Not all possible drug interactions are listed here. Where can I get more information? Your pharmacist can provide more information about cyclobenzaprine. Remember, keep this and all other medicines out of the reach of children, never share your medicines with others, and use this medication only for the indication prescribed. Every effort has been made to ensure that the information provided by [employer]. ('[employer]') is accurate, up-to-date, and complete, but no guarantee is made to that effect. Drug information contained herein may be time sensitive. [employer] information has been compiled for use by healthcare practitioners and consumers in the [place] and therefore [employer] does not warrant that uses outside of the [place] are appropriate, unless specifically indicated otherwise. [employer] drug information does not endorse drugs, diagnose patients or recommend therapy. [employer] drug information is an informational resource designed to assist licensed healthcare practitioners in caring for their patients and/or to serve consumers viewing this service as a supplement to, and not a substitute for, the expertise, skill, knowledge and judgment of healthcare practitioners. The absence of a warning for a given drug or drug combination in no way should be construed to indicate that the drug or drug combination is safe, effective or appropriate for any given patient. [employer] does not assume any responsibility for any aspect of healthcare administered with the aid of information [employer] provides. The information contained herein is not intended to cover all possible uses, directions, precautions, warnings, drug interactions, allergic reactions, or adverse effects. If you have questions about the drugs you are taking, check with your doctor, nurse or pharmacist. Copyright 6013-5858 [employer]. Version: 7.01. Revision Date: 12/27/2022. naproxen (na PROX en) Aleve, Aleve Back and Muscle Pain, Aleve Easy Open Arthritis, Aleve Liquid Gels, Anaprox-DS, EC-Naprosyn, Naprelan, Naprosyn What is the most important information I should know about naproxen? Naproxen can increase your risk of fatal heart attack or stroke. Do not use this medicine just before or after heart bypass surgery (coronary artery bypass graft, or CABG). Naproxen may also cause stomach or intestinal bleeding, which can be fatal. What is naproxen? Naproxen is a nonsteroidal anti-inflammatory drug (NSAID). Naproxen is used to treat pain or inflammation caused by conditions such as arthritis, ankylosing spondylitis, tendinitis, bursitis, gout, or menstrual cramps. The delayed-release or extended-release tablets are slower-acting forms of naproxen that are used only for treating chronic conditions such as arthritis or ankylosing spondylitis. These forms of naproxen will not work fast enough to treat acute pain. Naproxen may also be used for purposes not listed in this medication guide. What should I discuss with my healthcare provider before taking naproxen? Naproxen can increase your risk of fatal heart attack or stroke, even if you don't have any risk factors. Do not use this medicine just before or after heart bypass surgery (coronary artery bypass graft, or CABG). Naproxen may also cause stomach or intestinal bleeding, which can be fatal. These conditions can occur without warning while you are using naproxen, especially in older adults. You should not use naproxen if you are allergic to it, or if you have ever had an asthma attack or severe allergic reaction after taking aspirin or an NSAID. Ask a doctor before giving naproxen to a child younger than 12 years old. Ask a doctor or pharmacist if this medicine is safe to use if you have: heart disease, high blood pressure, high cholesterol, diabetes, or if you smoke; a heart attack, stroke, or blood clot; stomach ulcers or bleeding; asthma; liver or kidney disease; fluid retention; or if you take aspirin to prevent heart attack or stroke. If you are , you should not take naproxen unless your doctor tells you to. Taking an NSAID during the last 20 weeks of can cause serious heart or kidney problems in the unborn baby and possible complications with your . It may not be safe to breastfeed while using this medicine. Ask your doctor about any risk. How should I take naproxen? Use exactly as directed on the label, or as prescribed by your doctor. Use the lowest dose that is effective in treating your condition. Shake the oral suspension (liquid) before you measure a dose. Measure a dose with the supplied measuring device (not a kitchen spoon). Take this medicine with food or milk if it upsets your stomach. Always follow directions on the medicine label about giving this medicine to a child. Naproxen doses are based on weight in children. Your child's dose needs may change if the child gains or loses weight. If you use naproxen long-term, you may need frequent medical tests. This medicine can affect the results of certain medical tests. Tell any doctor who treats you that you are using naproxen. Store at room temperature away from moisture, heat, and light. Keep the bottle tightly closed when not in use. What happens if I miss a dose? Since naproxen is used when needed, you may not be on a dosing schedule. Skip any missed dose if it's almost time for your next dose. Do not use two doses at one time. What happens if I overdose? Seek emergency medical attention or call the Poison Help line at . What should I avoid while taking naproxen? Avoid drinking alcohol. It may increase your risk of stomach bleeding. Avoid taking aspirin or other NSAIDs unless your doctor tells you to. Ask a doctor or pharmacist before using other medicines for pain, fever, swelling, or cold/flu symptoms. They may contain ingredients similar to naproxen (such as aspirin, ibuprofen, or ketoprofen). Ask your doctor before using an antacid, and use only the type your doctor recommends. Some antacids can make it harder for your body to absorb naproxen. What are the possible side effects of naproxen? Get emergency medical help if you have signs of an allergic reaction (runny or stuffy nose, wheezing or trouble breathing, hives, swelling in your face or throat) or a severe skin reaction (fever, sore throat, burning eyes, skin pain, red or purple skin rash with blistering and peeling). Stop using naproxen and seek medical treatment if you have a serious drug reaction that can affect many parts of your body. Symptoms may include skin rash, fever, swollen glands, muscle aches, severe weakness, unusual bruising, or yellowing of your skin or eyes. Get emergency medical help if you have signs of a heart attack or stroke: chest pain spreading to your jaw or shoulder, sudden numbness or weakness on one side of the body, slurred speech, leg swelling, feeling short of breath. Stop using naproxen and call your doctor at once if you have: shortness of breath (even with mild exertion); swelling or rapid weight gain; the first sign of any skin rash or blister, no matter how mild; signs of stomach bleeding--bloody or tarry stools, coughing up blood or vomit that looks like coffee grounds; liver problems--nausea, upper stomach pain, loss of appetite, dark urine, jose-colored stools, jaundice (yellowing of the skin or eyes); kidney problems--little or no urination, painful urination, swelling in your feet or ankles; or low red blood cells (anemia)--pale skin, unusual tiredness, feeling light-headed or short of breath, cold hands and feet. Common side effects may include: headache; indigestion, heartburn, stomach pain; or flu symptoms; This is not a complete list of side effects and others may occur. Call your doctor for medical advice about side effects. You may report side effects to FDA at 7-767-GCI-6426. What other drugs will affect naproxen? Ask your doctor before using naproxen if you take an antidepressant. Taking certain antidepressants with an NSAID may cause you to bruise or bleed easily. Ask a doctor or pharmacist before using naproxen with any other medications, especially: other NSAIDs or salicylates (diflunisal, salsalate); antacids and sucralfate; cholestyramine; cyclosporine; digoxin; lithium; methotrexate; pemetrexed; probenecid; warfarin (Coumadin, Jantoven) or similar blood thinners; a diuretic or 'water pill'; or heart or blood pressure medication. This list is not complete. Other drugs may affect naproxen, including prescription and hrme-jbj-nbwclxe medicines, vitamins, and herbal products. Not all possible drug interactions are listed here. Where can I get more information? Your pharmacist can provide more information about naproxen. Remember, keep this and all other medicines out of the reach of children, never share your medicines with others, and use this medication only for the indication prescribed. Every effort has been made to ensure that the information provided by [employer]') is accurate, up-to-date, and complete, but no guarantee is made to that effect. Drug information contained herein may be time sensitive. [employer] information has been compiled for use by healthcare practitioners and consumers in the [place] and therefore [employer] does not warrant that uses outside of the [place] are appropriate, unless specifically indicated otherwise. [employer]'s drug information does not endorse drugs, diagnose patients or recommend therapy. [employer] drug information is an informational resource designed to assist licensed healthcare practitioners in caring for their patients and/or to serve consumers viewing this service as a supplement to, and not a substitute for, the expertise, skill, knowledge and judgment of healthcare practitioners. The absence of a warning for a given drug or drug combination in no way should be construed to indicate that the drug or drug combination is safe, effective or appropriate for any given patient. [employer] does not assume any responsibility for any aspect of healthcare administered with the aid of information [employer] provides. The information contained herein is not intended to cover all possible uses, directions, precautions, warnings, drug interactions, allergic reactions, or adverse effects. If you have questions about the drugs you are taking, check with your doctor, nurse or pharmacist. Copyright [id number] [employer]. Version: 22.. Revision Date: 12/26/2022. Education Materials Head Injury (Adult) You have a head injury. It does not appear serious at this time. But symptoms of a more serious problem, such as a mild brain injury (concussion) or bruising or bleeding in the brain, may appear later. For this reason, you or someone caring for you will need to watch for the symptoms listed below. Once you re home, also be sure to follow any care instructions you re given. Home care Watch for the following symptoms Seek emergency medical care if you have any of these symptoms over the next hours to days: Headache Nausea or vomiting Dizziness Sensitivity to light or noise Unusual sleepiness or grogginess Trouble falling asleep Personality changes Vision changes Memory loss Confusion Trouble walking or clumsiness Loss of consciousness (even for a short time) Inability to be awakened Stiff neck Weakness or numbness in any part of the body Seizures General care If you were prescribed medicines for pain, use them as directed. Note: Don t take other medicines for pain without talking to your provider first. To help reduce swelling and pain, apply a cold source to the injured area for up to 20 minutes at a time. Do this as often as directed. Use a cold pack or bag of ice wrapped in a thin towel. Never apply a cold source directly to the skin. If you have cuts or scrapes as a result of your head injury, care for them as directed. For the next 24 hours (or longer, if instructed): oDon t drink alcohol or use sedatives or other medicines that make you sleepy. oDon t drive or operate machinery. oDon t do anything strenuous, such as heavy lifting or straining. oLimit tasks that require concentration. This includes reading, using a smartphone or computer, watching TV, and playing video games. oDon t return to sports or other activities that could result in another head injury. Follow-up care Follow up with your healthcare provider, or as directed. If imaging tests were done, they will be reviewed by a doctor. You will be told the results and any new findings that may affect your care. When to seek medical advice Call your healthcare provider right away if any of these occur: Pain doesn t get better or worsens New or increased swelling or bruising Fever of 100.4 F (38 C) or higher, or as directed by your provider Increased redness, warmth, drainage, or bleeding from the injured area Fluid drainage or bleeding from the nose or ears Any depression or bony abnormality in the injured area Persistent confusion or lethargy Bruising behind the ears or bruising around the eyes 7550-4445 [employer]. [address] [place] [address], [place] [address]. All rights reserved. This information is not intended as a substitute for professional medical care. Always follow your healthcare professional's instructions. Muscle Spasm A muscle spasm (also called a cramp) is an involuntary muscle contraction. The muscle tightens quickly and strongly. A hard lump may form in the muscle. Muscle spasms are very painful. Here's how to treat and prevent muscle spasms. What causes muscles to spasm? Often, the cause of a muscle spasm is not known. Muscle spasm is due to irritation of muscle fibers. Some things can make a muscle spasm more likely. These include: Injury Heavy exercise Overtired muscles A muscle held in one position for a long time Dehydration Low levels of certain minerals in the body Certain medicines, such as diuretics or water pills Certain medical conditions, such as kidney failure or diabetes Stopping a muscle spasm Muscle spasms often come and go quickly. When a muscle goes into spasm, very gently stretch and massage the muscle. This may help calm the muscle fibers. Then rest the muscle. Preventing muscle spasms Although there is little or no evidence that staying hydrated, taking certain vitamins or minerals, or stretching works to prevent cramps, these measures may help and have other benefits. Talk to your healthcare provider about steps to take to prevent muscle spasms. Try to: Drink enough fluids to prevent dehydration, especially when you exercise. Take vitamin or mineral supplements. Get regular exercise. Stretch regularly, especially before exercise. Limit caffeine and smoking. Take a prescription muscle relaxant. When to call your doctor Call your doctor if you have any of the following: Severe cramping Cramping that lasts a long time, does not go away with stretching, or keeps coming back Pain, tingling, or weakness in the arms or legs Pain that wakes you up at night 1138-2749 [employer]. [address] [place] [address]. All rights reserved. This information is not intended as a substitute for professional medical care. Always follow your healthcare professional's instructions. Additional Information VACCINATE! IT SAVES LIVES! Members of the community who have not yet received the COVID-19 vaccine and would like to receive it can visit one of [facility] vaccine clinics. There are many vaccine clinic locations within the [facility]. For locations and available times, please visit [email or web address] It is important to note that some COVID mobile vaccine clinics are held outdoors and may be canceled in rainy or stormy conditions. To learn more about pediatric vaccinations (ages 5-11), we invite you to visit the [facility] webpage. [email or web address] To learn more about the COVID-19 vaccine, we invite you to visit the CDC website for a list of frequently asked questions. https://www.cdc.gov/coronavirus/ 2019-ncov/vaccines/faq.html [facility] Patient Portal Access Instructions: Stay connected with your healthcare team and access your personal medical information anytime with the [facility] Patient Portal. If you would like a full copy of your medical records please contact the [facility] Medical Records Department Friday through Friday between 8a.m. and 4:30p.m. Please follow the directions below to access the portal: 1.Access the email account you provided upon registration to the [facility].2.Look for an invitation email from [facility].3.Open the email and access the invitation link: Accept Invitation to [facility]4.Fill in the required lo to create your account. Sign into [email or web address] with your username and password that you created in the above steps to stay up to date. You can then view a summary of results, a summary of your visits, and the ability to download your summaries to your computer or send the information securely to a physician. Remember that your healthcare information is confidential, so carefully consider who you will allow to register on the [facility] Patient Portal for access to your information. You can also access the [facility] Patient Portal on the [employer]. Simply click on Health Records under Health Data and then click on the [employer] logo. HOW TO SAFELY DISPOSE OF PRESCRIPTION MEDICATIONS Please use one of the following methods to safely dispose of your unused medications. 1.Use a drug disposal kit: the drug disposal pouch allows you to safely discard your old and unused drugs. Ask your nurse to give you one when you are discharged.2.Visit a local take-back location: Many local pharmacies and police departments have programs that collect old and unwanted prescription drugs. Call your local pharmacy or go to http://bit.ly/1L9Ia2i to find one close to you.3.Make use of household items: Use cat litter or old coffee grounds to dispose medications if other options are not available. Mix your drugs with these household products, seal them in an airtight container and throw it into the garbage. Call [facility]: [phone] to be sure your drugs can be disposed of in this way. Some medicines may require a different approach.4.Never flush your medications down the toilet. IF YOU HAVE BEEN PRESCRIBED AN OPIOIDS FOR PAIN If you have been prescribed an opioid (such as hydrocodone, oxycodone or morphine), it is critical to understand the possible side effects and risks of opioid pain medications. Even when taken as directed, opioids can have several side effects including: Tolerance, meaning you might need to take more of a medication for the same pain relief. Nausea, vomiting and/or constipation. Sleepiness, dizziness, dry mouth, confusion, depression or itching. Physical dependence, meaning you have withdrawal symptoms when a medication is stopped ? this can develop within a few days. KNOW YOUR RESPONSIBILITIES It is important to know exactly how much and how often to take the opioid pain medications you are prescribed. Never take opioids in higher amounts or more often than prescribed. Do not combine opioids with alcohol or other drugs that cause drowsiness, such as benzodiazepines, also known as benzos, including diazepam and alprazolam, muscle relaxants or sleep aids. Never sell or share prescription opioids. This is illegal. Store opioids in a secure place and out of reach of others (including children, family, friends and visitors). The last page(s) of this document has been signed and retained as a CHART COPY Signatures Patient Education Materials Head Injury (Adult) Muscle Spasm Medication Leaflets cyclobenzaprine, naproxen My discharge plan and instructions have been reviewed and explained to me and IROSALIA CHARLES L understand my current condition and have read and understand these discharge instructions. I have received a written copy of the plan/instructions. If I have questions, I am aware that I should contact my doctor. 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 Axial, sagittal, and coronal reconstructed images. This exam was performed according to our departmental dose optimization program, and includes the following measures where applicable: automated exposure control, adjustment of the mAs and/or kVp according to patient size and/or exam, and an iterative reconstruction algorithm. COMPARISON: None. HISTORY: ORDERING SYSTEM PROVIDED HISTORY: Reason for Exam: Pt reports hitting his head on garage door yesterday. posterior head/neck pain. pain FINDINGS: No fracture or traumatic malalignment. There is straightening of the normal cervical lordosis without a listhesis. Vertebral body heights are maintained. The craniocervical junction is preserved. No aggressive osseous lesions are identified. Multilevel mild disc height loss and anterior spinal degenerative enthesopathy changes are present. The prevertebral and paraspinal soft tissues demonstrate no acute abnormality. The lung apices demonstrates emphysema and biapical scarring. Circumferential thickening of the upper esophagus is noted. IMPRESSION: 1. No acute fracture or traumatic malalignment. 2. Multilevel mild disc height loss and anterior spinal degenerative enthesopathy changes. 3. Circumferential thickening of the upper esophagus. Considerations include GERD and esophagitis. Interpreted by: Susi Delgado MD Preliminary Report By: Susi Delgado MD Electronically signed By Susi Delgado MD Dictated Date: 10/01/2024 3:06:15 PM Prelim Date: 10/01/2024 3:07:47 PM Sign Date: 10/01/2024 3:07:47 PM [facility]* Exam Date Time Procedure Performing Provider Status 10/01/24 2:[address] Head or Brain w/o Contrast SUSI DELGADO MD; Auth (Verified) [id number] ORIGINAL EXAMINATION: CT HEAD TECHNIQUE: Axial CT images from skull base to vertex without IV contrast. This exam was performed according to our departmental dose optimization program, and includes the following measures where applicable: automated exposure control, adjustment of the mAs and/or kVp according to patient size and/or exam, and an iterative reconstruction algorithm. COMPARISON: None HISTORY: ORDERING SYSTEM PROVIDED HISTORY: Reason for Exam: Pt reports hitting his head on garage door yesterday. posterior head/neck pain. pain FINDINGS: Parenchyma: No acute intracranial hemorrhage, midline shift, mass effect or acute ischemic infarct is demonstrated. The sanchez-white matter junctions are preserved. No space occupying intra-axial masses or extra-axial fluid collections are seen. Mild parenchymal volume loss most pronounced in the cerebellar vermis and bilateral frontal lobes. Ventricles: No evidence of hydrocephalus or ventricular effacement. Vessels: No significant atherosclerotic calcifications. Orbits: Unremarkable. Calvarium: Unremarkable. Paranasal sinuses: Clear. Mastoid sinuses: Clear. IMPRESSION: 1. No acute intracranial pathology. 2. Mild parenchymal volume loss most pronounced in the cerebellar vermis and bilateral frontal lobes. Interpreted by: Susi Delgado MD Preliminary Report By: Susi Delgado MD Electronically signed By Susi Delgado MD Dictated Date: 10/01/2024 2:43:15 PM Prelim Date: 10/01/2024 2:44:39 PM Sign Date: 10/01/2024 2:44:39 PM Ordering Provider: [facility]01-31-2025 NoteDischarge Summary Guilherme Weaver : 1980 ADMIT DATE: 06/07/2024 DISCHARGE DATE: 06/25/2024 PRIMARY CARE PHYSICIAN: No primary care provider on file. VISIT STATUS: Admission CODE STATUS: Full Code DISCHARGE DIAGNOSES: Principal Problem: Psychosis, unspecified psychosis type (HCC) HOSPITAL COURSE: 44-year-old white, male with history of psychosis, suspected paranoid schizophrenia brought to the emergency department by police due to being found running into traffic believing that he had to save children, he was hallucinating. He was found on the scene making bizarre statements in reference cameras implanted in his eyes and speakers implanted in his ears. Furthermore, he made other bizarre statements believing that the bones had been cut out of his body and that he had earlier that day given to a turtle. He was found to be guarded and reclusive on examination. He continued to voice paranoid and persecutory delusions. Collateral information was obtained from mother who reported that the patient has been struggling with worsening psychiatric symptoms for the past 6 years requiring multiple hospitalizations, following divorce. He has been poorly compliant with medications due to paranoia that they might be poisonous. She clarified that patient had voiced hallucinating seeing children flying in the street and that he needed to save them. She was hoping that the patient could be treated over objection. It was determined that patient would benefit from inpatient psychiatric hospitalization. On evaluation by psychiatry, patient was found to show no insight into his condition. He fervently asserted that he does not have any mental illness. He voiced that he would refuse medications that were ordered for him. We did order nightly p.o. Invega, which he refused for 1 week. He continued to voice delusions and paranoia. It was evident that he was distressed by the belief that there were cameras and speakers implanted into his body, but he still was not interested in medications. The process of outpatient commitment and treatment over objection was explained to him. He elected to go ahead with this process. He also chose to be present at the hearing, though he did not say anything, and did not want his waste recycler to say anything. The mint wafer depositor ruled in favor of initiating OPC and TOO. Patient initially declined p.o. Invega and had to be given IM Zyprexa as outlined by the TOO process. After a few days of this, his paranoia improved and he was accepting of the p.o. Invega. After multiple administrations of the p.o. Invega without any side effects or complications, establishing tolerability, he was given the Invega Sustenna 234 mg HARPER on 06/21/2024. Symptoms continued to improve. He was less paranoid and less withdrawn to his room. Mother visited with him frequently and noted improvement. On the day of discharge, he denied having any concerns about his muscles or tendons, states that he occasionally still hears voices, but notes that it his improved significantly. He received the Invega Sustenna 156 mg booster on 06/25/2024, without any side effects or complications. Mother was contacted to coordinate discharge efforts, she had no acute concerns and was agreeable to plan for discharge with close local outpatient follow-up. SIGNIFICANT DIAGNOSTIC STUDIES: Urine drug screen negative, other labs grossly within normal limits Hemoglobin A1c: Lab Results Component Value Date HGBA1C 5.5 06/07/2024 Lipid panel: Lab Results Component Value Date CHOL 168 06/07/2024 Lab Results Component Value Date HDL 39 (L) 06/07/2024 Lab Results Component Value Date LDLCALC 113 (H) 06/07/2024 Lab Results Component Value Date TRIG 80 06/07/2024 CONSULTANTS: Social work consulted for discharge planning RECOMMENDED NEXT STEPS: Follow-up with [facility] [place] for injection Invega Sustenna 234 mg q. 28 days, next due 07/23/2024. Attempt made to contact significant other to review discharge plan at time of discharge. We were able to contact significant other identified. Patient was provided opportunity to designate another possible contact and declined. We were in contact with the patient's mother DISCHARGE MEDICATIONS: Medication List START taking these medications paliperidone palmitate ER 234 MG/1.5ML suspension prefilled syringe Commonly known as: Invega Sustenna Inject 1.5 mL (234 mg) into the shoulder, thigh, or buttocks every 28 (twenty-eight) days. (Next due 07/23/2024) Do not start before July 23, 2024. Start taking on: July 23, 2024 Where to Get Your Medications These medications were sent to [facility] [place] [facility] [id number] [place] [address] [place] [id number] paliperidone palmitate ER 234 MG/1.5ML suspension prefilled syringe DISCHARGE PHYSICAL EX (more content not included)...[facility] 06-25-2024 NoteProblem: Sensory Perceptual Alteration as Evidenced by Goal: Initiates reality-based interactions Outcome: Progressing Goal: Will not act on psychotic perception [facility] NotePsych[facility] Progress Note Today's date: 06/24/2024 Admit Date: 06/07/2024 Length of stay: 17 Assessment and Plan Ongoing inpatient hospitalization for treatment of paranoid schizophrenia, which is also the chief complaint. Patient received Invega Sustenna 234 mg HARPER on 06/21. He is more interactive and less withdrawn to his room. He recalls having delusions related to his muscles and tendons last week, that he currently has no concerns with, suggesting improvement. Plan to receive Invega Sustenna booster 156 mg tomorrow and discharge back to mother, per collateral call that occurred yesterday. MDM: Invega Sustenna 234 mg HARPER given 06/21/2024. Ordered Invega Sustenna booster 156 mg HARPER for tomorrow, 06/25/2024. Continue psychotropic regimen as otherwise ordered and [facility] management for medical comorbidities. Diagnosis: Paranoid schizophrenia, chronic Medication nonadherence, now under OPC and treatment over objection This patient requires the supervision of inpatient psychiatric personnel for continued safety monitoring and medication management. No scheduled meds currently PRN meds for Agitation, Anxiety, Insomnia are ordered SW/TCC consults to determine appropriate follow up and discharge plan. Verbal explanation of working diagnosis and recommended treatment including risks/benefits has been given to the patient. Subjective: Patient was seen and examined in person. Per staff, Patient is calm and behavior is controlled, Patient has been eating and sleeping well, and Patient endorses ongoing AVH. He is more readily interactive. On interview today, the patient states that the voices are minimally improved since he presented to the hospital. He does however affirm that his delusions and paranoia surrounding exposed muscles and tendons, and not having any bones in his body has resolved and he currently has no concerns with this. He is told of plan to receive Invega Sustenna booster tomorrow, discharge, and follow-up with local psychiatry services to his area. Endorses no issues with visit from his mother yesterday. Objective: Vitals : BP 104/63 Pulse 72 Temp 36.7 ?C (98 ?F) (Temporal) Resp 16 Ht 1.753 m (5' 9) Wt 83.9 kg (185 lb) SpO2 98% BMI 27.32 kg/m? MSE: Appearance: Fair Grooming, Appears stated Age and Wearing Hospital Attire Behavior: Cooperative, conversant, engaged, and with good eye contact. Speech: normal rate, tone and rhythm Motor Activity: Normal Mood: Doing alright Affect: Appropriate to stated mood and Constricted Thought Process: Coherent and Goal-Directed Thought Content: Auditory Hallucinations, No SI, No HI, and No VH Cognition: Intact Concentration: Intact Memory: Intact Insight: Limited, improving Judgement: Limited, improving Labs: Reviewed, none new Electronically signed by Will Floyd MD Manager Of Creative Services Chart was reviewed and case was discussed with the nurse. The patient was discussed with, and seen with Dr. Floyd. I agree with this progress note, assessment, and plan. Patient has a mental disorder causing major disability in social, interpersonal, occupational, and/or educational functioning that is leading to dangerous or life-threatening functioning, and that can only be addressed in an acute inpatient setting. The patient requires intensive 24 level of care for the following reasons: the need for patient safety. Jimena Pagan [facility]01-30-2025 NoteProblem: Sensory Perceptual Alteration as Evidenced by Goal: Will not act on psychotic perception Outcome: [facility]01-29-2025 NotePsychiatric Progress Note Today's date: 06/23/2024 Admit Date: 06/07/2024 Length of stay: 16 Assessment and Plan Ongoing inpatient hospitalization for treatment of paranoid schizophrenia, which is also the chief complaint. Patient received Invega Sustenna 234 mg HARPER on 06/21. His references to AVH are less frequent and he is less withdrawn to his room. He denies having any concerns about exposed tendons or bones today, substantiating improvement. Plan to receive Invega Sustenna booster and discharge back to mother, per collateral call below. MDM: Invega Sustenna 234 mg HARPER given 06/21/2024, discontinued scheduled oral Invega, plan for Invega Sustenna booster on Friday, 06/25. Continue psychotropic regimen as otherwise ordered and [facility] management for medical comorbidities. Diagnosis: Paranoid schizophrenia, chronic Medication nonadherence, now under OPC and treatment over objection This patient requires the supervision of inpatient psychiatric personnel for continued safety monitoring and medication management. No scheduled meds currently PRN meds for Agitation, Anxiety, Insomnia are ordered SW/TCC consults to determine appropriate follow up and discharge plan. Verbal explanation of working diagnosis and recommended treatment including risks/benefits has been given to the patient. Subjective: Patient was seen and examined in person. Per staff, Patient is calm and behavior is controlled and Patient endorses ongoing AVH. He has been less isolative to her room. On interview today, patient reports feeling all right and expresses a desire to travel to [place] tomorrow morning. He has not spoken with his mother on the phone recently. The patient acknowledges experiencing false perceptions relayed by others while on the street, which led to unsafe situations. He believes that the current medication regimen is helping to block these false perceptions. He is amenable for plan to receive booster injection of Invega Sustenna. There is no mention of suicidal or homicidal ideations (SI/HI) or auditory/visual hallucinations (AVH) since yesterday, The focus remains on confirming improvement and planning for eventual discharge. Collateral Call Ifrah Weaver, patient's mother [phone] I spoke to the patient's mother, Ifrah, to update her about Guilherme' condition. Guilherme has been receiving medication, which is showing positive effects, though he still experiences some delusional thoughts. The plan is to administer a booster dose of the medication on Friday, following the main dose received earlier in the week. Ifrah expressed relief that Guilherme is improving compared to his condition on Friday, when he was highly non-social and experiencing intense delusions. She is anxious to have him discharged, hoping it will be safe for him to return home on Friday. Ifrah is concerned about his upcoming court hearing for a past probation violation and is hopeful that Guilherme will be well enough to comprehend the proceedings. Ifrah is also taking steps to ensure Guilherme remains social and engaged with family activities once he is home. I educated her on some of the components of outpatient commitment. She appreciated the update and the care provided, feeling reassured about the plan moving forward. Objective: Vitals : BP 100/73 Pulse 72 Temp 36.6 ?C (97.8 ?F) (Temporal) Resp 16 Ht 1.753 m (5' 9) Wt 83.9 kg (185 lb) SpO2 96% BMI 27.32 kg/m? MSE: Appearance: Fair Grooming, Appears stated Age and Wearing Hospital Attire Behavior: Cooperative, conversant, engaged, and with good eye contact. Speech: normal rate, tone and rhythm Motor Activity: Normal Mood: Doing fine Affect: Appropriate to stated mood and Constricted Thought Process: Goal-Directed and Illogical Thought Content: Auditory Hallucinations, No SI, No HI, and No VH Cognition: Intact Concentration: Intact Memory: Intact Insight: Limited, improving Judgement: Limited, improving Labs: Reviewed, none new Electronically signed by Will Floyd MD Manager Of Creative Services Chart was reviewed and case was discussed with the nurse. The patient was discussed with, and seen with Dr. Floyd. I agree with this progress note, assessment, and plan. Patient has a mental disorder causing major disability in social, interpersonal, occupational, and/or educational functioning that is leading to dangerous or life-threatening functioning, and that can only be addressed in an acute inpatient setting. The patient requires intensive 24 level of care for the following reasons: the need for patient safety. Jimena Pagan [facility]01-29-2025 NoteProblem: Sensory Perceptual Alteration as Evidenced by Goal: Able to discuss content of hallucinations/delusions Outcome: [facility]01-28-2025 NoteProblem: Anxiety Goal: Verbalizes ways to manage anxiety Outcome: Progressing Goal: Implements measures to reduce anxiety Outcome: [facility]01-28-2025 NotePsychiatric Progress Note Today's date: 06/22/2024 Admit Date: 06/07/2024 Length of stay: 15 Assessment and Plan Ongoing inpatient hospitalization for treatment of paranoid schizophrenia, which is also the chief complaint. Patient received Invega Sustenna 234 mg HARPER yesterday. Still makes references to auditory visual hallucinations, though these are lessened in severity. He also continues to be delusional. He is less withdrawn to his room, suggesting that his paranoia may be improving. Plan to receive Invega Sustenna booster and plan for discharge back to mother. MDM: Invega Sustenna 234 mg HARPER given 06/21/2024, discontinued scheduled oral Invega, plan for Invega Sustenna booster 4 days after. Continue psychotropic regimen as otherwise ordered [facility]. Diagnosis: Paranoid schizophrenia, chronic Medication nonadherence, now under OPC and treatment over objection This patient requires the supervision of inpatient psychiatric personnel for continued safety monitoring and medication management. No scheduled meds currently PRN meds for Agitation, Anxiety, Insomnia are ordered SW/TCC consults to determine appropriate follow up and discharge plan. Verbal explanation of working diagnosis and recommended treatment including risks/benefits has been given to the patient. Subjective: Patient was seen and examined in person. Per staff, Patient is calm and behavior is controlled and Patient endorses ongoing AVH. He has been less isolative to her room. On interview today, patient reported concerns about the injection causing any damage to muscles or tendons. He points to his left arm and states that there are exposed muscles, he was unable to be redirected from this delusion. He was provided reassurance that this is a widely used medication that is well-tolerated. He continues to experience auditory hallucinations, perceiving voices being broadcasted into his ear. He hopes that the medication will block these hallucinations. Indicates understanding a plan to receive booster injection in a few days, with the aim of potential discharge in collaboration with his mother. Objective: Vitals : BP 108/76 Pulse 72 Temp 36.8 ?C (98.2 ?F) (Temporal) Resp 16 Ht 1.753 m (5' 9) Wt 83.9 kg (185 lb) SpO2 99% BMI 27.32 kg/m? MSE: Appearance: Fair Grooming, Appears stated Age and Wearing Hospital Attire Behavior: Guarded. and Fair eye contact. Speech: normal rate, tone and rhythm Motor Activity: Normal Mood: Doing fine Affect: Appropriate to stated mood and Constricted Thought Process: Nonsensical and Bizarre Thought Content: Auditory Hallucinations, Delusions, No SI, and No HI Cognition: Intact Concentration: Intact Memory: Intact Insight: Impaired Judgement: Limited Labs: Reviewed, none new Electronically signed by Will Floyd MD Manager Of Creative Services Chart was reviewed and case was discussed with the nurse. The patient was discussed with, and seen with Dr. Floyd. I agree with this progress note, assessment, and plan. Patient has a mental disorder causing major disability in social, interpersonal, occupational, and/or educational functioning that is leading to dangerous or life-threatening functioning, and that can only be addressed in an acute inpatient setting. The patient requires intensive 24 level of care for the following reasons: the need for patient safety. Jimena Pagan [facility]01-28-2025 NoteProblem: Sensory Perceptual Alteration as Evidenced by Goal: Notifies staff when experiencing hallucinations/delusions Outcome: [facility]01-27-2025 NoteProblem: Sensory Perceptual Alteration as Evidenced by Goal: Verbalizes reduction in hallucinations/delusions Outcome: Not Progressing Problem: Anxiety Goal: Verbalizes ways to manage anxiety [facility] NotePsychiatric Progress Note Today's date: 06/21/2024 Admit Date: 06/07/2024 Length of stay: 14 Assessment and Plan Ongoing inpatient hospitalization for treatment of paranoid schizophrenia, which is also the chief complaint. Patient has tolerated oral Invega without side effects for 3 scheduled doses. Today he received Invega Sustenna 234 mg HARPER. He is still endorsing AVH and paranoia, though he does not speak of these as spontaneously as earlier in his hospitalization, suggesting that the distress from these is lessening. Discontinued oral Invega, we will plan to continue to monitor for symptom improvement and for patient to receive Invega Sustenna booster, and discharge home as previously discussed with patient's mother, Ifrah, earlier in admission. MDM: Invega Sustenna 234 mg HARPER today, discontinued oral Invega, we will plan on Invega Sustenna booster in 4 days, and discharge home pending adequate symptom improvement Continue psychotropic regimen as otherwise ordered and [facility] management for medical comorbidities. Diagnosis: Paranoid schizophrenia, chronic Medication nonadherence, now under OPC and treatment over objection This patient requires the supervision of inpatient psychiatric personnel for continued safety monitoring and medication management. Scheduled meds include: PRN meds for Agitation, Anxiety, Insomnia are ordered SW/TCC consults to determine appropriate follow up and discharge plan. Verbal explanation of working diagnosis and recommended treatment including risks/benefits has been given to the patient. Subjective: Patient was seen and examined in person. Per staff, Patient is calm and behavior is controlled, Patient has been medication adherent, and Patient endorses ongoing AVH. He is isolative to room. On interview, patient states he is amenable to plan for Invega Sustenna today with Invega Sustenna booster in 4 days. He does fixate on the possibility of muscle and tendon damage with the injection. He was reassured that this is a widely used medication that is very well tolerated. He goes on to reiterate that he has no bones in his arms. Attempts to reorient him to reality were unsuccessful. He is amenable to the treatment plan and potential discharge by the end of the week. Objective: Vitals : BP 103/71 Pulse 74 Temp 37 ?C (98.6 ?F) (Temporal) Resp 18 Ht 1.753 m (5' 9) Wt 83.9 kg (185 lb) SpO2 100% BMI 27.32 kg/m? MSE: Appearance: Fair Grooming, Appears stated Age and Wearing Hospital Attire Behavior: Guarded., Suspicious. , and Fair eye contact. Speech: normal rate, tone and rhythm Motor Activity: Normal Mood: Doing alright Affect: Appropriate to stated mood and Full Thought Process: Grossly Disorganized, Nonsensical, and Bizarre Thought Content: Auditory Hallucinations, Visual Hallucinations, Delusions, No SI, and No HI Cognition: Intact Concentration: Intact Memory: Intact Insight: Impaired Judgement: Limited Labs: Reviewed, none new Electronically signed by Will Floyd MD Manager Of Creative Services Chart was reviewed and case was discussed with the nurse. The patient was discussed with, and seen with Dr. Floyd. I agree with this progress note, assessment, and plan. Discussion/plan: Patient is now on civil commitment and treatment over objection. He received Invega 6 mg nightly for 3 days and tolerated it well. We will start Invega Sustenna with 234 mg loading dose today. Patient has a mental disorder causing major disability in social, interpersonal, occupational, and/or educational functioning that is leading to dangerous or life-threatening functioning, and that can only be addressed in an acute inpatient setting. The patient requires intensive 24 level of care for the following reasons: the need for patient safety. Jimena Pagan [facility]01-26-2025 NoteProblem: Anxiety Goal: Attempts to manage anxiety with help Outcome: Progressing Goal: Verbalizes ways to manage anxiety Outcome: Progressing Goal: Implements measures to reduce anxiety Outcome: [facility]01-26-2025 NoteDepartment of Psychiatry Attending Progress Note CHIEF COMPLAINT: Psychosis SUBJECTIVE: Patient was seen today for continued management of his psychosis. Chart was reviewed and case was discussed with the nurse. Per nursing report he was compliant with the Invega the second night in a row. Otherwise she remains isolative to his room. He does appear suspicious of others. Today when I asked how the medicine is doing he says it is fine. He denies experiencing any side effects. He does not automatically start voicing all the delusional ideas like he has previously. This suggests he may be showing improvement. He was calm and cooperative. When I asked about the voices then he does say he he still hearing the device. He slept well. Mood is fair. Denies depression. No suicidal or homicidal ideation. OBJECTIVE REVIEW OF SYSTEMS: Psychiatric Review Of Systems: Anxiety: Yes, Depression: Denies, Sleep disturbance: Denies, Appetite change: Denies, Irritability: No, Change in concentration: Yes, Ruminating thoughts: Yes, Racing thoughts: Yes, Change in energy level: Denies, Hallucinations: Yes, Delusions: Yes. Psychological ROS: Denies suicidal or homicidal ideation. Physical Vitals: Blood pressure 110/73, pulse 77, temperature 36.4 ?C (97.6 ?F), temperature source Temporal, resp. rate 16, height 1.753 m (5' 9), weight 83.9 kg (185 lb), SpO2 99%. Mental Status Examination: Patient shows normal gait. Muscle tone is normal with no rigidity or tremor. He appears well-hydrated and nourished. Unkempt in appearance and dressed in hospital attire. He shows normal psychomotor activity. Mood seems anxious with congruent affect. He reports auditory hallucinations and delusions. He believes he has speakers implanted in his ears and cameras in his eyes. He hears voices emanating from these speakers. He expresses a lot of delusional ideas. Including his belief that his bones have been removed from his body. Denies suicidal or homicidal ideation. He is alert and oriented x 3. Attention and concentration is impaired. Insight is poor. Judgment impaired. Data: No new lab results to review Medications: nicotine, 1 patch, TransDERmal, Daily paliperidone, 6 mg, Oral, Nightly ASSESSMENT: Schizophrenia chronic paranoid type Noncompliance with treatment regimen (now under commitment and treatment over objection) DISCUSSION: Probate hearing held 06/17/2024. Civil commitment and treatment over objection was granted. As of today he received two doses of Invega 6 mg HS. He is tolerating the Invega well. We will plan on starting Invega Sustenna tomorrow after his third dose of oral Invega. PLAN: Plan to continue Invega. Will now offer the oral Invega and if he refuses he would receive IM Zyprexa. After he demonstrates a tolerance to the oral Invega (at least 3 scheduled doses) will start Invega Sustenna tomorrow Diagnostic tests recommended: None currently 1:1 Sitter not indicated Medications: Continue current medication as above Psychosocial interventions: Social work has been consulted for discharge planning. Continue individual, group, and milieu therapy as tolerated. Currently on civil commitment and treatment over objection. Patient has a mental disorder causing major disability in social, interpersonal, occupational, and/or educational functioning that is leading to dangerous or life-threatening functioning, and that can only be addressed in an acute inpatient setting. The patient requires intensive 24 level of care for the following reasons: the need for patient safety. Jimena Lupillo [facility] [id number] NoteDepartment of Psychiatry Attending Progress Note CHIEF COMPLAINT: Psychosis SUBJECTIVE: Patient was seen today for continued management of his psychosis. Chart was reviewed and case was discussed with the nurse. Per nursing report he did take his scheduled oral Invega last night without incident. He is now under civil commitment and treatment over objection. He is doing about the same. He remains isolated to his room. Continues to voice the bizarre and paranoid delusions. Today he cannot help but tell me about the cameras in his eyes and the people talking to him through speakers in his ears. But he has been calm and cooperative. There has been no agitation. So far he denies any side effects from the Invega. OBJECTIVE REVIEW OF SYSTEMS: Psychiatric Review Of Systems: Anxiety: Yes, Depression: Denies, Sleep disturbance: Denies, Appetite change: Denies, Irritability: No, Change in concentration: Yes, Ruminating thoughts: Yes, Racing thoughts: Yes, Change in energy level: Denies, Hallucinations: Yes, Delusions: Yes. Psychological ROS: Denies suicidal or homicidal ideation. Physical Vitals: Blood pressure 103/65, pulse 60, temperature 36.6 ?C (97.9 ?F), temperature source Temporal, resp. rate 16, height 1.753 m (5' 9), weight 83.9 kg (185 lb), SpO2 98%. Mental Status Examination: Patient shows normal gait. Muscle tone is normal with no rigidity or tremor. He appears well-hydrated and nourished. Unkempt in appearance and dressed in hospital attire. He shows normal psychomotor activity. Mood seems anxious with congruent affect. He reports auditory hallucinations and delusions. He believes he has speakers implanted in his ears and cameras in his eyes. He hears voices emanating from these speakers. He expresses a lot of delusional ideas. Including his belief that his bones have been removed from his body. Denies suicidal or homicidal ideation. He is alert and oriented x 3. Attention and concentration is impaired. Insight is poor. Judgment impaired. Data: No new lab results to review Medications: nicotine, 1 patch, TransDERmal, Daily paliperidone, 6 mg, Oral, Nightly ASSESSMENT: Schizophrenia chronic paranoid type Noncompliance with treatment regimen DISCUSSION: Probate hearing held 06/17/2024. Civil commitment and treatment over objection was granted. PLAN: Plan to continue Invega. Will now offer the oral Invega and if he refuses he would receive IM Zyprexa. After he demonstrates a tolerance to the oral Invega (at least 3 scheduled doses) will start Invega Sustenna. Diagnostic tests recommended: None currently 1:1 Sitter not indicated Medications: Continue current medication as above Psychosocial interventions: Social work has been consulted for discharge planning. Continue individual, group, and milieu therapy as tolerated. Currently on civil commitment and treatment over objection. Patient has a mental disorder causing major disability in social, interpersonal, occupational, and/or educational functioning that is leading to dangerous or life-threatening functioning, and that can only be addressed in an acute inpatient setting. The patient requires intensive 24 level of care for the following reasons: the need for patient safety. Jimena Pagan [facility] [id number] NotePsychiatric Progress Note Today's date: 06/18/2024 Admit Date: 06/07/2024 Length of stay: 11 Assessment and Plan Ongoing inpatient hospitalization due to paranoid psychosis for further symptom stabilization and disposition. Civil commitment and TOO granted during yesterday's hearing. Patient declined nightly Invega and thusly had to receive as needed Zyprexa 5 mg IM. He continues to voice discomfort with having all his bones removed, encouraged compliance with p.o. Invega to avoid IM injection. MDM: Civil committment and TOO granted on 06/17/24 hearing. Continue encouraging taking PO Invega 6mg nightly. Patient to receive PRN Zyprexa 5mg if declines Invega. Continue psychotropic regimen as otherwise ordered and [facility] management for medical comorbidities. Diagnosis: Paranoid schizophrenia, chronic Medication nonadherence (on treatment over objection) Methamphetamine use disorder, resolved Continue admission to [facility]. This patient requires the supervision of inpatient psychiatric personnel due to continued need for safety monitoring and medication management. Scheduled medications include: nicotine, 1 patch, TransDERmal, Daily paliperidone, 6 mg, Oral, Nightly Treatment team will monitor response to medications and titrate dosing as needed. Medications ordered as needed: PRN medications: acetaminophen, hydrOXYzine pamoate, OLANZapine OR OLANZapine (ZyPREXA) 5 mg in sterile water 1 mL injection, ondansetron ODT, polyethylene glycol (PEG) 3350, traZODone SW/TCC consults to determine appropriate follow up and discharge plan. Patient encouraged to engage in hygiene and grooming maintenance, eat all meals, and attend individual/group therapy sessions. Verbal explanation of working diagnosis, signs and symptoms, and recommended course of treatment including risk/benefit information has been given to the patient. Subjective: Patient was seen and examined in person. Discussed with staff. Chart and labs reviewed. Chief Complaint: Psychosis Per staff, Patient is calm and cooperative with staff and Patient declines medication. He visited with his mother yesterday. Probate and TOO hearing took place yesterday, mint wafer depositor granted. Patient continues to be isolative to self in room. Makes bizarre references to his bones and tendons being all removed. When told that he does not appear to have undergone this, and is able to move, he still refutes our logic and fixates on his bones being gone. No complaints related to [facility] made to us. Affect continues to be flat. Encouraged taking p.o. Invega. Objective: Vitals : BP 100/55 Pulse 53 Temp 36.8 ?C (98.2 ?F) (Temporal) Resp 18 Ht 1.753 m (5' 9) Wt 83.9 kg (185 lb) SpO2 97% BMI 27.32 kg/m? MSE: Appearance: Fair Grooming, Appears stated Age and Wearing Hospital Attire Behavior: Guarded, suspicious, poor eye contact Speech: hesitant and minimal conversation Motor Activity: Normal Mood: I don't need to be here Affect: Flat Thought Process: Grossly Disorganized and Nonsensical Thought Content: Paranoia, Delusions, No SI, and No HI Cognition: Intact Concentration: Intact Memory: Impaired Insight: Impaired Judgement: Impaired Labs: Reviewed, none new Electronically signed by Will Floyd MD Manager Of Creative Services Chart was reviewed and case was discussed with the nurse. The patient was discussed with, and seen with Dr. Floyd. I agree with this progress note, assessment, and plan. Discussion/plan: Patient is currently on civil commitment and treatment over objection. Last night he still refused the scheduled oral Invega and received IM Zyprexa. Today he complained about receiving a shot. I explained to him that if he took the oral Invega he would not receive the injection. Still very delusional. Today complaining that all the bones in his body are gone. Patient has a mental disorder causing major disability in social, interpersonal, occupational, and/or educational functioning that is leading to dangerous or life-threatening functioning, and that can only be addressed in an acute inpatient setting. The patient requires intensive 24 level of care for the following reasons: the need for patient safety. Jimena Pagan [facility]01-23-2025 NoteProblem: Sensory Perceptual Alteration as Evidenced by Goal: Initiates reality-based interactions Outcome: Progressing Problem: Anxiety Goal: Attempts to manage anxiety with help Outcome: [facility]01-23-2025 NoteDepartment of Psychiatry Attending Progress Note CHIEF COMPLAINT: Psychosis SUBJECTIVE: Patient was seen today for continued management of his psychosis. Chart was reviewed and case was discussed with the nurse. Per nursing report he remains very isolative to his room. Continues to refuse medication. There have been no behavioral issues. Today he continues to endorse hearing voices from what he believes are speakers in his ears. He thinks there is some plot against him. Today we had a court hearing for civil commitment and treatment over objection. The patient did want to be present at the meeting. He chose not to speak at the hearing and did not want his wafer polishing lead worker to speak. The mint wafer depositor did not find in favor of the civil commitment and the treatment over objection. OBJECTIVE REVIEW OF SYSTEMS: Psychiatric Review Of Systems: Anxiety: Yes, Depression: Denies, Sleep disturbance: Denies, Appetite change: Denies, Irritability: No, Change in concentration: Yes, Ruminating thoughts: Yes, Racing thoughts: Yes, Change in energy level: Denies, Hallucinations: Yes, Delusions: Yes. Psychological ROS: Denies suicidal or homicidal ideation. Physical Vitals: Blood pressure 105/61, pulse 57, temperature 36.9 ?C (98.5 ?F), temperature source Temporal, resp. rate 18, height 1.753 m (5' 9), weight 83.9 kg (185 lb), SpO2 97%. Mental Status Examination: Patient shows normal gait. Muscle tone is normal with no rigidity or tremor. He appears well-hydrated and nourished. Unkempt in appearance and dressed in hospital attire. He shows normal psychomotor activity. Mood seems anxious with congruent affect. He reports auditory hallucinations and delusions. He believes he has speakers implanted in his ears and cameras in his eyes. He hears voices emanating from these speakers. He expresses a lot of delusional ideas. Denies suicidal or homicidal ideation. He is alert and oriented x 3. Attention and concentration is impaired. Insight is poor. Judgment impaired. Data: No new lab results to review Medications: nicotine, 1 patch, TransDERmal, Daily paliperidone, 3 mg, Oral, Nightly ASSESSMENT: Schizophrenia chronic paranoid type Noncompliance with treatment regimen DISCUSSION: Probate hearing held 06/17/2024. Civil commitment and treatment over objection was granted. PLAN: Plan to continue Invega. Will now offer the oral Invega and if he refuses he would receive IM Zyprexa. After he demonstrates a tolerance to the oral Invega will start Invega Sustenna. Diagnostic tests recommended: None currently 1:1 Sitter not indicated Medications: Continue current medication as above Psychosocial interventions: Social work has been consulted for discharge planning. Continue individual, group, and milieu therapy as tolerated. Currently on civil commitment and treatment over objection. Patient has a mental disorder causing major disability in social, interpersonal, occupational, and/or educational functioning that is leading to dangerous or life-threatening functioning, and that can only be addressed in an acute inpatient setting. The patient requires intensive 24 level of care for the following reasons: the need for patient safety. Jimena Pagan [facility]01-22-2025 NoteProblem: Sensory Perceptual Alteration as Evidenced by Goal: Cooperates with admission process Outcome: Progressing Problem: Anxiety Goal: Verbalizes ways to manage anxiety Outcome: [facility]01-22-2025 NotePsychiatric Progress Note Today's date: 06/16/2024 Admit Date: 06/07/2024 Length of stay: 9 Assessment and Plan Ongoing inpatient hospitalization due to paranoid psychosis for further symptom stabilization and disposition. Patient continues to decline medication and isolate to self, endorsing paranoid/bizarre beliefs. He continues to show no insight into his mental health condition. He affirms that he did meet with waste recycler yesterday on the unit and plans to attend hearing tomorrow for treatment over objection. MDM: Continue offering Invega 3 mg nightly for symptoms of psychosis. Plan for TOO hearing tomorrow. Continue psychotropic regimen as otherwise ordered and [facility] management for medical comorbidities. Diagnosis: Schizophrenia, paranoid, chronic Medication noncompliance Methamphetamine use disorder, resolved Continue admission to [facility]. This patient requires the supervision of inpatient psychiatric personnel due to continued need for safety monitoring and medication management. Scheduled medications include: nicotine, 1 patch, TransDERmal, Daily paliperidone, 3 mg, Oral, Nightly Treatment team will monitor response to medications and titrate dosing as needed. Medications ordered as needed: PRN medications: acetaminophen, hydrOXYzine pamoate, OLANZapine OR OLANZapine (ZyPREXA) 5 mg in sterile water 1 mL injection, ondansetron ODT, polyethylene glycol (PEG) 3350, traZODone SW/TCC consults to determine appropriate follow up and discharge plan. Patient encouraged to engage in hygiene and grooming maintenance, eat all meals, and attend individual/group therapy sessions. Verbal explanation of working diagnosis, signs and symptoms, and recommended course of treatment including risk/benefit information has been given to the patient. Subjective: Patient was seen and examined in person. Discussed with staff. Chart and labs reviewed. Chief Complaint: Psychosis Per staff, patient is calm and polite. He isolates to her room and eats meals in his room. He is guarded and declines medications. He makes bizarre references to his bones being removed. He affirms that he met with waste recycler yesterday and plans to attend hearing tomorrow related to treatment over objection. It was reexplained to the patient that medications would likely provide significant relief with his symptoms of psychosis including paranoid thoughts that there are cameras in his eyes and speakers in his ears. However, patient continues to decline interest stating that they would not do anything for me. Objective: Vitals : BP 110/63 Pulse 61 Temp 37.4 ?C (99.3 ?F) (Temporal) Resp 18 Ht 1.753 m (5' 9) Wt 83.9 kg (185 lb) SpO2 98% BMI 27.32 kg/m? MSE: Appearance: Fair Grooming, Appears stated Age and Wearing Hospital Attire Behavior: Guarded, suspicious, poor eye contact Speech: hesitant and minimal conversation Motor Activity: Normal Mood: I feel bored Affect: Flat Thought Process: Grossly Disorganized and Bizarre Thought Content: Auditory Hallucinations, Visual Hallucinations, Paranoia, Delusions, No SI, and No HI Cognition: Intact Concentration: Intact Memory: Impaired Insight: Impaired Judgement: Impaired Labs: Reviewed, none new Electronically signed by Will Floyd MD Manager Of Creative Services Chart was reviewed and case was discussed with the nurse. The patient was discussed with, and seen with Dr. Floyd. I agree with this progress note, assessment, and plan. Patient has a mental disorder causing major disability in social, interpersonal, occupational, and/or educational functioning that is leading to dangerous or life-threatening functioning, and that can only be addressed in an acute inpatient setting. The patient requires intensive 24 level of care for the following reasons: the need for patient safety. Jimena Pagan [facility]01-22-2025 NoteProblem: Sensory Perceptual Alteration as Evidenced by Goal: Verbalizes reduction in hallucinations/delusions Outcome: Not [facility]01-21-2025 NotePsychiatric Progress Note Today's date: 06/15/2024 Admit Date: 06/07/2024 Length of stay: 8 Assessment and Plan Ongoing inpatient hospitalization due to psychosis, paranoia for further symptom stabilization and disposition. Patient continues to be delusional, paranoid, isolative to self. He continues to decline offered scheduled medications, despite encouragement. He is aware of timeline for treatment over objection, and meeting with waste recycler either later today or tomorrow. MDM: Continue offering Invega 3 mg nightly for symptoms of psychosis, in hopes he will trial it. Patient to meet with waste recycler later today or tomorrow to further TOO process. Continue psychotropic regimen as otherwise ordered and [facility] management for medical comorbidities. Diagnosis: Chronic paranoid schizophrenia Treatment nonadherence History of methamphetamine use disorder, resolved Continue admission to [facility]. This patient requires the supervision of inpatient psychiatric personnel due to continued need for safety monitoring and medication management. Scheduled medications include: nicotine, 1 patch, TransDERmal, Daily paliperidone, 3 mg, Oral, Nightly Treatment team will monitor response to medications and titrate dosing as needed. Medications ordered as needed: PRN medications: acetaminophen, hydrOXYzine pamoate, OLANZapine OR OLANZapine (ZyPREXA) 5 mg in sterile water 1 mL injection, ondansetron ODT, polyethylene glycol (PEG) 3350, traZODone SW/TCC consults to determine appropriate follow up and discharge plan. Patient encouraged to engage in hygiene and grooming maintenance, eat all meals, and attend individual/group therapy sessions. Verbal explanation of working diagnosis, signs and symptoms, and recommended course of treatment including risk/benefit information has been given to the patient. Subjective: Patient was seen and examined in person. Discussed with staff. Chart and labs reviewed. Chief Complaint: Psychosis Since yesterday, patient is calm with staff, though isolative to self in room. He is declining scheduled medications. He continues to exhibit paranoia During interview today, patient acknowledged ongoing treatment over objection process and plan to meet with waste recycler either later today or tomorrow. Patient indicated that his auditory hallucinations have continued referencing speakers in his ears. He also believes that there are cameras in his eyes and that police are out to get him. He was encouraged to trial medications as they would be likely helpful in alleviating his symptoms, however patient continues to decline interest, preferring to continue treatment over objection process. Objective: Vitals : BP 95/51 Pulse 66 Temp 37.2 ?C (99 ?F) (Temporal) Resp 16 Ht 1.753 m (5' 9) Wt 83.9 kg (185 lb) SpO2 98% BMI 27.32 kg/m? MSE: Appearance: Fair Grooming, Appears stated Age and Wearing Hospital Attire Behavior: Guarded., Suspicious. , and Poor eye contact. Speech: hesitant and minimal conversation Motor Activity: Normal Mood: I feel tired Affect: Flat Thought Process: Grossly Disorganized and Bizarre Thought Content: Auditory Hallucinations, Visual Hallucinations, Paranoia, Delusions, No SI, and No HI Cognition: Intact Concentration: Intact Memory: Impaired Insight: Impaired Judgement: Impaired Labs: Reviewed, none new Electronically signed by Will Floyd MD Manager Of Creative Services Chart was reviewed and case was discussed with the nurse. The patient was discussed with, and seen with Dr. Floyd. I agree with this progress note, assessment, and plan. Patient has a mental disorder causing major disability in social, interpersonal, occupational, and/or educational functioning that is leading to dangerous or life-threatening functioning, and that can only be addressed in an acute inpatient setting. The patient requires intensive 24 level of care for the following reasons: the need for patient safety. Jimena Pagan [facility] [id number] NotePsychiatric Progress Note Today's date: 06/14/2024 Admit Date: 06/07/2024 Length of stay: 7 Assessment and Plan Ongoing inpatient hospitalization due to psychosis for further symptom stabilization and disposition. Continues to be delusional and paranoid. Declines medications since he has been hospitalized. 2nd opinion filed. MDM: Continue offering nightly Invega 3mg for psychosis. Plan for TOO after hearing this week. Continue psychotropic regimen as otherwise ordered and [facility] management for medical comorbidities. Diagnosis: Paranoid Schizophrenia, Chronic Treatment nonadherence Continue admission to [facility] 5. This patient requires the supervision of inpatient psychiatric personnel due to continued need for safety monitoring and medication management. Scheduled medications include: nicotine, 1 patch, TransDERmal, Daily paliperidone, 3 mg, Oral, Nightly Treatment team will monitor response to medications and titrate dosing as needed. Medications ordered as needed: PRN medications: acetaminophen, hydrOXYzine pamoate, OLANZapine OR OLANZapine (ZyPREXA) 5 mg in sterile water 1 mL injection, ondansetron ODT, polyethylene glycol (PEG) 3350, traZODone SW/TCC consults to determine appropriate follow up and discharge plan. Patient encouraged to engage in hygiene and grooming maintenance, eat all meals, and attend individual/group therapy sessions. Verbal explanation of working diagnosis, signs and symptoms, and recommended course of treatment including risk/benefit information has been given to the patient. Subjective: Patient was seen and examined in person. Discussed with staff. Chart and labs reviewed. Chief Complaint: Psychosis Since yesterday, Patient is calm and cooperative with staff, Patient declines medication, and Patient endorses ongoing AVH Patient continues to be withdrawn to room. He takes meals in his room and does not come out often. He continues to spend long periods of time staring out the window and points to police referencing how he came to the hospital. He continues to be paranoid stating that speakers are in his ears and there are cameras in his eyes placed by some unknown entity. He is calm. Denies SI/HI. Objective: Vitals : BP 111/71 Pulse 74 Temp 36.3 ?C (97.4 ?F) (Temporal) Resp 16 Ht 1.753 m (5' 9) Wt 83.9 kg (185 lb) SpO2 97% BMI 27.32 kg/m? MSE: Appearance: Disheveled. Appears older than stated age. and Wearing Hospital Attire Behavior: Guarded., Distracted., and Poor eye contact. Speech: hesitant and minimal conversation Motor Activity: Normal Mood: I don't need to be here Affect: Flat Thought Process: Grossly Disorganized and Nonsensical Thought Content: Auditory Hallucinations, Visual Hallucinations, Paranoia, Delusions, No SI, and No HI Cognition: Intact Concentration: Intact Memory: Impaired Insight: Impaired Judgement: Impaired Labs: Reviewed, none new Electronically signed by Will Floyd MD Manager Of [employer] Services Chart was reviewed and case was discussed with the nurse. The patient was discussed with, and seen with Dr. Floyd. I agree with this progress note, assessment, and plan. Patient has a mental disorder causing major disability in social, interpersonal, occupational, and/or educational functioning that is leading to dangerous or life-threatening functioning, and that can only be addressed in an acute inpatient setting. The patient requires intensive 24 level of care for the following reasons: the need for patient safety. Jimena Pagan [facility] [id number] NotePsychiatric Progress Note Today's date: 06/13/2024 Admit Date: 06/07/2024 Length of stay: 6 Subjective: Patient was seen today for continued management of his psychosis. Chart was reviewed and case was discussed with the nurse. Per nursing report he continues to be paranoid and isolative. Today he did not come out of his room at all by the afternoon. He did not eat breakfast or lunch. He just paces in his room. Today he continues to voice the delusions about the voices in his ears and that he can hear voices. He thinks there is some conspiracy against him. Continues to adamantly refuse medication. Objective: Vitals : BP 111/68 Pulse 73 Temp 36.9 ?C (98.5 ?F) (Temporal) Resp 16 Ht 1.753 m (5' 9) Wt 83.9 kg (185 lb) SpO2 98% BMI 27.32 kg/m? MENTAL STATUS EXAM Appearance: Casually groomed. Appears older than stated age Attitude toward examiner: Difficult to engage Behavior/motor: Normal Speech: Hard to follow, soft and slow Mood: Okay Affect: Mood congruent. Dysphoric and constricted Thought process: Illogical. Bizarre. Thought content: Audio Hallucinations, Visual Hallucinations, Paranoia, Delusions, and No SI, HI, AVH Cognition and Attention: Poor Memory: Poor Insight: Impaired Judgment: Impaired Labs: Reviewed, none new Assessment: Schizophrenia chronic paranoid type Noncompliance with treatment regimen Plan: Patient continues to refuse medication. We will continue with the plan for pursuing civil commitment and treatment over objection. The goal is to start Haldol decanoate. Diagnostic tests recommended: Salivary cortisol resulted. 1:1 Sitter not indicated Medications: Continue current medication as above Psychosocial interventions: Social work has been consulted for discharge planning. Continue individual, group, and milieu therapy as tolerated. Voluntary Patient has a mental disorder causing major disability in social, interpersonal, occupational, and/or educational functioning that is leading to dangerous or life-threatening functioning, and that can only be addressed in an acute inpatient setting. The patient requires intensive 24 level of care for the following reasons: the need for patient safety. Jimena Pagan [facility]01-19-2025 NoteProblem: Sensory Perceptual Alteration as Evidenced by Goal: Initiates reality-based interactions Outcome: Not Progressing Goal: Able to discuss content of hallucinations/delusions Outcome: Not [facility]25 NotePsychiatric Progress Note Today's date: 06/12/2024 Admit Date: 06/07/2024 Length of stay: 5 Subjective: Patient was seen today for continued management of his psychosis. Chart was reviewed and case was discussed with the nurse. Per nursing report he remains reclusive to his room. Paranoid in his demeanor continues to refuse medication today our interaction was difficult he mumbles and rambles delusional ideas still hearing voices from what he believes are speakers in his ears still does not believe he has a mental illness or needs medicine. Objective: Vitals : BP 134/82 Pulse 64 Temp 36.4 ?C (97.6 ?F) (Temporal) Resp 18 Ht 1.753 m (5' 9) Wt 83.9 kg (185 lb) SpO2 99% BMI 27.32 kg/m? MENTAL STATUS EXAM Appearance: Casually groomed. Appears older than stated age Attitude toward examiner: Difficult to engage Behavior/motor: Normal Speech: Hard to follow, soft and slow Mood: Okay Affect: Mood congruent. Dysphoric and constricted Thought process: Illogical. Bizarre. Thought content: Audio Hallucinations, Visual Hallucinations, Paranoia, Delusions, and No SI, HI, AVH Cognition and Attention: Poor Memory: Poor Insight: Impaired Judgment: Impaired Labs: Reviewed, none new Assessment: Schizophrenia chronic paranoid type Noncompliance with treatment regimen Plan: Patient continues to refuse medication. We will continue with the plan for pursuing civil commitment and treatment over objection. The goal is to start Haldol decanoate. Diagnostic tests recommended: Salivary cortisol resulted. 1:1 Sitter not indicated Medications: Continue current medication as above Psychosocial interventions: Social work has been consulted for discharge planning. Continue individual, group, and milieu therapy as tolerated. Voluntary Patient has a mental disorder causing major disability in social, interpersonal, occupational, and/or educational functioning that is leading to dangerous or life-threatening functioning, and that can only be addressed in an acute inpatient setting. The patient requires intensive level of care for the following reasons: the need for patient safety. Jimena Pagan [facility]01-18-2025 NoteProblem: Sensory Perceptual Alteration as Evidenced by Goal: Able to discuss content of hallucinations/delusions Outcome: Not Progressing Goal: Notifies staff when experiencing hallucinations/delusions Outcome: Not ProgressingUP [facility]01-18-2025 NoteProblem: Sensory Perceptual Alteration as Evidenced by Goal: Initiates reality-based interactions Outcome: Progressing Problem: Sensory Perceptual Alteration as Evidenced by Goal: Verbalizes reduction in hallucinations/delusions Outcome: [facility]01-17-2025 NotePsychiatric Progress Note Today's date: 06/11/2024 Admit Date: 06/07/2024 Length of stay: 4 Assessment and Plan Ongoing inpatient hospitalization due to delusions and psychosis for further symptom stabilization and disposition. He continues to have paranoid delusions related to police and is unwilling to trial medication. Supportive second opinion consultation obtained and will continue with TOO process. MDM: No medication changes, we will continue to offer Invega 3 mg nightly for psychosis with long-term plan for treatment over objection and initiating long-acting injectable antipsychotic Continue psychotropic regimen as otherwise ordered and [facility] management for medical comorbidities. Diagnosis: Paranoid schizophrenia History of amphetamine use disorder History of unspecified depression Continue admission to [facility] 5. This patient requires the supervision of inpatient psychiatric personnel due to continued need for safety monitoring and medication management. Scheduled medications include: nicotine, 1 patch, TransDERmal, Daily paliperidone, 3 mg, Oral, Nightly Treatment team will monitor response to medications and titrate dosing as needed. Medications ordered as needed: PRN medications: acetaminophen, hydrOXYzine pamoate, OLANZapine OR OLANZapine (ZyPREXA) 5 mg in sterile water 1 mL injection, ondansetron ODT, polyethylene glycol (PEG) 3350, traZODone SW/TCC consults to determine appropriate follow up and discharge plan. Patient encouraged to engage in hygiene and grooming maintenance, eat all meals, and attend group therapy sessions. Patient will be provided with individual crisis intervention, oriented and supportive psychotherapy, group and milieu therapy. Verbal explanation of working diagnosis, signs and symptoms, and recommended course of treatment including risk/benefit information has been given to the patient. Subjective: Patient was seen and examined in person. Discussed with staff. Chart and labs reviewed. Chief Complaint: The police removed my bones Since yesterday, patient is calm and cooperative with staff, though he at times appears to be more irritable than before. He continues to decline scheduled medication, citing that they will not be effective. Withdrawn to her room and minimally interactive with peers. On interview, patient states he is feeling fine and that his mood is the same as yesterday. He expressed concern that the officers on the unit are going to handcuff him. He states that he continues to feel that there are speakers in his ears and cameras in his eyes and is upset that they put listening devices in him. He also states that his arm will never be the same after being handcuffed and having the bones taken out. He states he is doing his best to not listento the voices related to saving children in the street. He continues to maintain that he does not need medications and will declined them as offered. He denies SI and HI. He indicates understanding of the treatment over objection process. Objective: Vitals : BP 94/63 Pulse 56 Temp 36.9 ?C (98.4 ?F) (Temporal) Resp 15 Ht 1.753 m (5' 9) Wt 83.9 kg (185 lb) SpO2 98% BMI 27.32 kg/m? MENTAL STATUS EXAM Appearance: Casually groomed. Appears older than stated age Attitude toward examiner: Difficult to engage Behavior/motor: Normal Speech: Hard to follow, soft and slow Mood: Okay Affect: Mood congruent. Dysphoric and constricted Thought process: Illogical. Bizarre. Thought content: Audio Hallucinations, Visual Hallucinations, Paranoia, Delusions, and No SI, HI, AVH Cognition and Attention: Poor Memory: Poor Insight: Impaired Judgment: Impaired Labs: Reviewed, none new Chart was reviewed and case was discussed with the nurse. The patient was discussed with, and seen with Dr. Floyd. I agree with this progress note, assessment, and plan. Discussion/plan: Patient remains very delusional. Today he was talking about how the bones were removed from his arms and legs and that this had something to do with the police putting handcuffs on him. He is still experiencing voices that he hears from the speakers that are implanted in his ears. He is still adamant that he is not mentally ill and does not need medication. Continues to refuse meds. Plan remains to pursue civil commitment and treatment over objection. Court hearing will be next . Patient has a mental disorder causing major disability in social, interpersonal, occupational, and/or educational functioning that is leading to dangerous or life-threatening functioning, and that can only be addressed in an acute inpatient setting. The patient requires intensive 24 level of care for the following reasons: the need for patient safety. Jimena Pagan [facility] [id number] NoteProblem: Sensory Perceptual Alteration as Evidenced by Goal: Initiates reality-based interactions Outcome: [facility]01-16-2025 NotePsychiatric Progress Note Today's date: 06/10/2024 Admit Date: 06/07/2024 Length of stay: 3 Assessment and Plan Ongoing inpatient hospitalization due to delusions and psychosis for further symptom stabilization and disposition. He continues to be delusional and endorses ongoing auditory and visual hallucinations. Continues to decline interest in medication. He was educated on the process of probate and treatment over objection. Second opinion consultation obtained yesterday from Dr. Maharaj for TOO, agrees that patient lacks insight into condition and would benefit with treatment. Changes made today: No medication changes. We will continue to offer nightly Invega 3 mg. Probate and TOO process initiated. Continue psychotropic regimen as otherwise ordered and [facility] management for medical comorbidities. Diagnosis: Unspecified Psychosis R/o schizophrenia vs Schizoaffective disorder Hx MDD without Psychosis Continue admission to [facility] 5. This patient requires the supervision of inpatient psychiatric personnel due to continued need for safety monitoring and medication management. Scheduled medications include: nicotine, 1 patch, TransDERmal, Daily paliperidone, 3 mg, Oral, Nightly Treatment team will monitor response to medications and titrate dosing as needed. Medications ordered as needed: PRN medications: acetaminophen, hydrOXYzine pamoate, OLANZapine OR OLANZapine (ZyPREXA) 5 mg in sterile water 1 mL injection, ondansetron ODT, polyethylene glycol (PEG) 3350, traZODone SW/TCC consults to determine appropriate follow up and discharge plan. Patient encouraged to engage in hygiene and grooming maintenance, eat all meals, and attend group therapy sessions. Patient will be provided with individual crisis intervention, oriented and supportive psychotherapy, group and milieu therapy. Verbal explanation of working diagnosis, signs and symptoms, and recommended course of treatment including risk/benefit information has been given to the patient. Subjective: Patient was seen and examined in person. Discussed with staff. Chart and labs reviewed. Chief Complaint: I want to go home Since yesterday, Patient is calm and cooperative with staff and Patient declines medication. He states he does not need them. He is minimally interactive with peers and staff. He at times appears more irritable than before. On interview, patient states he is feeling fine and that his mood is the same as yesterday. He expressed concern that the officers on the unit are going to handcuff him. He states that he continues to feel that there are speakers in his ears and cameras in his eyes and is upset that they put listening devices in him. He also states that his arm will never be the same after being handcuffed and having the bones taken out. He states he is doing his best to not listento the voices. He continues to maintain that he does not need medications and will declined them as offered. He denies SI and HI. He indicates understanding of the treatment over objection process. Objective: Vitals : BP 100/61 Pulse 69 Temp 36.6 ?C (97.8 ?F) (Temporal) Resp 18 Ht 1.753 m (5' 9) Wt 83.9 kg (185 lb) SpO2 97% BMI 27.32 kg/m? MENTAL STATUS EXAM Appearance: Casually groomed. Appears older than stated age Attitude toward examiner: Difficult to engage Behavior/motor: Normal Speech: Hard to follow, soft and slow Mood: Okay Affect: Mood congruent. Dysphoric and constricted Thought process: Illogical. Bizarre. Thought content: Audio Hallucinations, Visual Hallucinations, Paranoia, Delusions, and No SI, HI, AVH Cognition and Attention: Poor Memory: Poor Insight: Impaired Judgment: Impaired Labs: Reviewed, none new Chart was reviewed and case was discussed with the nurse. The patient was discussed with, and seen with Dr. Floyd. I agree with this progress note, assessment, and plan. Patient has a mental disorder causing major disability in social, interpersonal, occupational, and/or educational functioning that is leading to dangerous or life-threatening functioning, and that can only be addressed in an acute inpatient setting. The patient requires intensive 24 level of care for the following reasons: the need for patient safety. Jimena Pagan [facility]01-15-2025 NoteProblem: Sensory Perceptual Alteration as Evidenced by Goal: Verbalizes reduction in hallucinations/delusions Outcome: Not Progressing Note: Pt expressed [facility]01-15-2025 NoteDepartment of Psychiatry Psychiatric Evaluation for Treatment over Objection HISTORY OF PRESENT ILLNESS: This is a 44-year-old white male with a history of psychosis, likely paranoid schizophrenia. Patient has a long history of poor insight and noncompliance with treatment. He was brought in by [employer] after he was running into traffic, claiming that he had to save children in the street. On the scene he was making bizarre statements, believing that there are cameras implanted in his eyes and speakers in his ears. He stated that someone had cut a baby out of him and turned the baby into a turtle. He also claims that the bones were stripped out of his arms when he was handcuffed by officers. So far on the unit he has been reclusive and suspicious. Continues to voice paranoid and persecutory delusions. The patient's mother was contacted for collateral information. The mother is concerned for the patient's wellbeing. She reports that he has been having mental health issues for at least 6 years he has been hospitalized multiple times. He has been treated with medication in the past but has been poorly compliant due to paranoia. He thinks that medications might be poisonous. He has been increasingly paranoid, believing that people are out to get him. Prior to admission he was out stopping traffic believing that he was saving children that live nearby. I asked him if he saw children that needed saving. He commented that, yes there were children in the street, crawling on houses and trees. He hears voices from the speakers in his ears. Since admission the patient has adamantly denied that he has any psychiatric illness. He has been refusing medication. He shows no insight into his illness and lacks capacity to make decisions regarding his psychiatric care. He would benefit from treatment with an antipsychotic. Would recommend pursuing civil commitment and treatment over objection with the goal of starting an antipsychotic and in particular a long-acting injectable form such as Invega Sustenna. PAST PSYCHIATRIC HISTORY: Per mother's report the patient has a history of multiple past admissions. He had been on medications in the past including Zyprexa and Prozac. He has a long history of noncompliance with treatment. We do have records of that admission to [facility] 12/2017 for suicidal ideation. At that time he was also abusing methamphetamine. Records indicate in 2019 he was brought to the ER for psychosis. At that time he was claiming that there were cameras in his eyes and speakers implanted in his ears. He apparently has been struggling with psychosis since 2019. PAST MEDICAL HISTORY: Patient denies CURRENT MEDICATION: None ALLERGIES: No known drug allergies FAMILY PSYCHIATRIC HISTORY: Patient denies SUBSTANCE ABUSE HISTORY: The patient has a remote history of methamphetamine abuse. He currently denies any drug or alcohol use. On admission urine toxicology was negative. Mother verifies that he has not been using methamphetamines while living with her. SOCIAL HISTORY: OBJECTIVE Physical Vitals: Blood pressure 111/60, pulse 66, temperature 37.1 ?C (98.7 ?F), temperature source Temporal, resp. rate 18, height 1.753 m (5' 9), weight 83.9 kg (185 lb), SpO2 100%. Mental Status Examination: Patient presents with fair attention to grooming and hygiene. He has an anxious demeanor. There is paranoia evident in his demeanor and behavior. He seems to be a reluctant informant. Answers tend to be brief and vague. Speech is clear in form and normal in rate. Thoughts are goal directed. Mood is irritable/anxious with congruent affect. There are paranoid, persecutory delusions. He endorses auditory hallucinations of voices he hears through the speakers in his ears. He denies suicidal or homicidal ideation. Attention and concentration is impaired. Estimated IQ and fund of knowledge is average. Insight is poor. Judgment is impaired. Data PERTINENT RESULTS: On admission urine toxicology and blood alcohol were negative. ASSESSMENT: Psychosis unspecified, rule out schizophrenia versus schizoaffective disorder Noncompliance with treatment regimen DISCUSSION: This is a 44-year-old white male with a history of psychosis, long history of poor insight and noncompliance with treatment. He was brought in by squad after an incident where he was stopping traffic under the delusional belief that he was saving children. He believes there are speakers implanted in his ears and cameras in his eyes. He shows no insight. Denies that he has a mental illness. He adamantly refuses medication. He lacks capacity to make decisions regarding his psychiatric care. He does represent a risk to the safety of himself and others due to his delusional behavior. He would benefit from treatment with an antipsychotic. PLAN: We will plan on pursuing civil commitment and treatment over objection (more content not included)...[facility]15[facility] for Treatment Over Objection CHIEF COMPLAINT: I was trying to alert that the kids were out History obtained from: patient, EMR Patient was seen after discussion with staff and reviewing the chart HISTORY OF PRESENT ILLNESS: The patient is a 44 y.o. male, history of psychosis, who presented to the ED after walking into traffic. I was requested by Dr. Pagan to complete a second opinion for treatment over objection. While in the ED, he discussed how someone pulled a baby out of him and turned the baby into a turtle. Patient reported speakers in his ears and eyes that someone was listening through. The auditory hallucinations were telling him there were kids in traffic. Workup was mostly unremarkable including negative UDS, negative ethanol. Patient was medically stable and transferred to [facility]. While admitted onto the unit, patient has been calm but visibly paranoid and suspicious. He disclosed to multiple staff members about devices implanted in his eyes and ears. He had been making bizarre comments such as bones and muscles disappearing from his arm due to the police putting him in handcuffs. Patient's responses are mostly short but polite with staff. Has not required any psychiatric PRNs. On today's encounter, patient was seen in bedroom, laying calmly in bed. Patient was guarded but cooperative throughout the interview. Patient displayed paranoia, disorganized thought process, and some memory deficits, such as disorientation to time and place and lack of awareness of current events. Patient believes he was brought in for stopping traffic because the kids were outside. Patient was unable to expand any further but later added he also knocked on multiple neighbors doors informing them of the children and couldn't understand why no one would care. When asked why this was the concern, patient was unable to answer. Patient made multiple vague references about surgeons who implanted the devices and are controlling his body. States the implants send electrical currents at high intensity damaging his nervous system. They also send videos and images to his eyes though he is unable to describe exactly what these images/videos are. At this point, patient stands up and walks towards interviewer grabbing his forearm and stating they expose my bones, it should be enclosed. Patient then began detailing in a disorganized manner that bones were either removed or shaved down throughout his body. When asked how that could have happened, patient responded I am not sure. If they wrote on paper with kids with wings. Patient denied any psychiatric disorder stating I think whoever is operating this disc has a psychiatric disorder. He denies any previous psychiatric admission or ever being on any psychiatric medications. Patient does not understand the purpose of his current medication, Invega. When explained, patient refused asserting he did not have a psychiatric condition and that no medication will address his nervous system. He continues to refuse trying any other psychiatric medication as well. He does not express any faith reasoning to his refusal of medications. He currently denies any suicidal or homicidal ideation. Does endorse auditory and visual hallucinations referring to the device. The patient denies any paranoia, though his statements are consistent with paranoid delusions. He denies any issues with sleep or appetite. Was unable to get much social history from patient directly due to lack of responses. He denied any substance use besides nicotine tobacco products. Previous records were reviewed and show a previous episode of disorganized thought process and delusions, however they were associated with methamphetamine use. Collateral obtained during this admission confirmed recent abstinence from substances including methamphetamines which is consistent with negative UDS Medications Prior to Admission: No medications prior to admission. Compliance:none Psychiatric Review of Systems (Negative if unchecked) [] Change in appetite/weight [] Change in sleep MOOD: [] Anhedonia [] Decreased/low mood [] Worthlessness/Guilt [] Hopeless/Helpless [] Decreased energy [] Decreased concentration ANXIETY: [] Excessive worry/difficulty controlling worry [] Irritability [] Easily fatigued [] Difficulty concentrating [] Obsessions [] Palpitations/Chest pain [] Diaphoresis [] Shortness of breath [] Trembling/shaking [] Sense of doom/fear of dying [] Agoraphobia [] Derealization/Depersonalization PTSD: [] Nightmares [] Flashbacks [] Avoidance [] Hyperarousal [] Hypervigilance JOSE: [] Inflated self esteem/grandiosity [] Elevated energy [] Decreased need for sleep [] Talkative/rapid/pressured speech [] Flight of ideas/racing thoughts [] Distractibility [] Increased goal directed activity [] Risky behaviors/ac (more content not included)...[facility] [id number] NotePsychiatric Progress Note Today's date: 06/09/2024 Admit Date: 06/07/2024 Length of stay: 2 Assessment and Plan Ongoing inpatient hospitalization due to delusions and psychosis for further symptom stabilization and disposition. He continues to be delusional and endorses auditory visual hallucinations. He states that he saw children flying in the street prior to arrival. Continues to decline interested in medication. He was educated on the process of probate and treatment over objection. Changes made today: None. Continue offering Invega 3mg nightly and encourage adherence. Anticipate probate and TOO. Continue psychotropic regimen as otherwise ordered and [facility] management for medical comorbidities. Diagnosis: Unspecified Psychosis R/o schizophrenia vs Schizoaffective disorder Hx MDD without Psychosis Continue admission to [facility]. This patient requires the supervision of inpatient psychiatric personnel due to continued need for safety monitoring and medication management. Scheduled medications include: nicotine, 1 patch, TransDERmal, Daily paliperidone, 3 mg, Oral, Nightly Treatment team will monitor response to medications and titrate dosing as needed. Medications ordered as needed: PRN medications: acetaminophen, hydrOXYzine pamoate, OLANZapine OR OLANZapine (ZyPREXA) 5 mg in sterile water 1 mL injection, ondansetron ODT, polyethylene glycol (PEG) 3350, traZODone SW/TCC consults to determine appropriate follow up and discharge plan. Patient encouraged to engage in hygiene and grooming maintenance, eat all meals, and attend group therapy sessions. Patient will be provided with individual crisis intervention, oriented and supportive psychotherapy, group and milieu therapy. Verbal explanation of working diagnosis, signs and symptoms, and recommended course of treatment including risk/benefit information has been given to the patient. Subjective: Patient was seen and examined in person. Discussed with staff. Chart and labs reviewed. Chief Complaint: I want to go home Since yesterday, Patient is calm and cooperative with staff and Patient declines medication On interview, patient states he wants to return home. He elaborates that he saw children flying in the street and that is why he rushed out into traffic, he then recalls being placed in handcuffs and brought to the hospital by police. He states that he continues to feel that there are speakers in his ears and cameras in his eyes. He was educated on the benefits of trialing an antipsychotic like Invega. He continues to maintain that he does not need medications and will declined them as offered. He denies SI, HI. He declines interest in taking phone calls from his mother. Objective: Vitals : BP 111/60 (BP Location: Left arm, Patient Position: Sitting) Pulse 66 Temp 37.1 ?C (98.7 ?F) (Temporal) Resp 18 Ht 1.753 m (5' 9) Wt 83.9 kg (185 lb) SpO2 100% BMI 27.32 kg/m? MENTAL STATUS EXAM Appearance: Mildly disheveled. Appears older than stated age Attitude toward examiner: Difficult to engage Behavior/motor: Normal Speech: Hard to follow, soft and slow Mood: I do not know why I am here Affect: Mood congruent. Dysphoric and constricted Thought process: Illogical. Hankamer Thought content: Audio Hallucinations, Visual Hallucinations, Delusions, and No SI, HI, AVH Cognition and Attention: Poor Memory: Poor Insight: Limited Judgment: Limited Labs: Reviewed, none new Electronically signed by Will Floyd MD Manager Of Creative Services Chart was reviewed and case was discussed with the nurse. The patient was discussed with, and seen with Dr. Floyd. I agree with this progress note, assessment, and plan. Patient has a mental disorder causing major disability in social, interpersonal, occupational, and/or educational functioning that is leading to dangerous or life-threatening functioning, and that can only be addressed in an acute inpatient setting. The patient requires intensive 24 level of care for the following reasons: the need for patient safety. Jimena Pagan [facility]01-15-2025 NotePatient refused smoking cessation counseling. Accepting of handout with contact information for future reference.[facility]01-14-2025 Note Psychiatric History and Physical Today's date: 06/08/2024 Chief Complaint: Auditory hallucinations and paranoia, 6-year history History obtained from: patient, EMR Patient was seen after discussion with staff and reviewing the chart History of Present Illness: Guilherme Weaver is a 44 y.o. male with a history of Schizophrenia presenting to [facility] ED from the community for psychiatric evaluation of bizarre behavior and psychosis. UDS was unremarkable and Psych clearance labs were unremarkable. BG 150, but A1c WNL at 5.5. Otherwise workup was unrevealing and patient was medically cleared for psychiatric evaluation. Prior to arrival, anger speech focused patient was brought in by police due to walking out in traffic today citing his intention to save the children in the street. He also made bizarre statements to the effect of believing that he has cameras in his eyes and speakers in his ears. He had also stated that someone had cut a baby out of him and turned the baby into a turtle, and cut all the bone out of me. 1 time order of Zydis 5 mg ordered, was not received by the patient. Since arriving to [facility], he appears cooperative but also anxious and paranoid. Also showcase suspiciousness and would not sign admission paperwork after review. Continued to state that he has cameras in his eyes and speakers in his ears which are telling him to do things. He also perseverated on believing the bone and muscle is gone from his right arm due to being put in handcuffs prior to arrival, despite reassurance otherwise. In meeting with the patient today, Lambert reports experiencing auditory hallucinations, describing that he hears voices talking about various topics, including kids being loose. He believes these voices are transmitted through a wireless connection using a device that flashes videos in his eyes. He is unsure who is targeting him. Lambert denies understanding why he was brought in and expresses confusion regarding the situation. He mentions a sensation in his arm described as frozen, and there is a minor marlen on his wrist, possibly from handcuffs. Lambert denies taking any medication currently and expresses skepticism about their effectiveness, stating he does not know if they have helped him in the past. He is not familiar with Invega, a medication proposed during the discussion. Lambert appears ambivalent about treatment options and lacks insight into his condition. Collateral Call Patient's Mother, Ifrah Weaver During the phone call, Guilherme Weaver's mother expressed significant concern for her son's well-being and his possible discharge from the hospital. She explained that Guilherme has been experiencing mental health issues for approximately six years, stemming from a tumultuous period during his divorce. She noted that he has been hospitalized multiple times and previously treated with medications like Prozac and Zyprexa, although his compliance has been inconsistent due to his paranoia and belief that medications might be poisonous. She described his behavior as paranoid, often believing that people are out to get him, and recounted an incident where he was stopping traffic to prevent harm to children he believed lived nearby. His mother mentioned his hallucinations, such as believing devices were planted in his ear, and shared that he has never been violent but does have episodes where he wanders off. She emphasized her desire for Guilherme to receive proper treatment and be stabilized before any discharge is considered, as past short hospitalizations have not been effective. 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 She states that the patient had been able to hold a job for long periods of time in the past. She assured me that Guilherme, while at her home, has been kept away from negative influences and has not used methamphetamine. No mention was made of guns being present in their home. Guilherme's mother expressed relief that he is currently safe at the hospital and requested to be notified upon discharge to ensure his safe transition home. Medications Prior to Admission: No medications prior to admission. Psychiatric Review of Systems Depression: Yes Suicidal ideation: No Homicidal ideation: No Jose or Hypomania: No Panic Attacks: No Anxiety: Yes Obsessions and Compulsions: No PTSD: No Hallucinations: Yes Delusions: Yes Access to weapons?: No Past Psychiatric History: Prior Diagnosis: Unspecified psychotic disorder Outpatient treatment: No Hospitalization: Yes, possibly [facility] in 2019 per collateral Call Hx of Suicidal Attempts: No Previous discontinued Psychiatric Med Trials: Michael, Altheayprexa Per records was admitted to [facility] 12/2017 for depression and suicidal ideati (more content not included)...[facility]01-14-2025 Note Patient slept well throughout evening. Patient refusing morning lab draw, 1:1 and education regarding labs ineffective. Labs rescheduled for tomorrow morning. [facility] SHSEvaluation + Plan note No data available for this section [facility] Evaluation noteNo assessment information available [facility] Work Phone: Reason for referral (narrative)No reason for referral information availableWAvita Health System Work Phone: Summary Purpose Family History No Family History Records FoundNo Family History Records FoundNo Family History Records FoundNo Family History Records FoundNo Family History Records Found No data available for this section No Family History Records FoundNo Family History Records Found Advance Directives No Advanced Directives Records FoundNo Advanced Directives Records FoundNo Advanced Directives Records FoundNo Advanced Directives Records FoundNo Advanced Directives Records FoundNo Advanced Directives Records FoundNo Advanced Directives Records Found Chief Complaint and Reason for Visit Chief Complaint Admit Date LABS November 19, 2024 8:14 am Additional Source Comments (unrecognized sect ion and content) No Status Records FoundNo Status Records FoundNo Status Records FoundNo Status Records FoundNo Status Records FoundNo Status Records FoundNo Status Records Found INFORMATION SOURCE (unrecogn ized section and content) DATE CREATED AUTHOR 12/25/2017 [facility] [employer] [facility] DATE CREATED AUTHOR AUTHOR'S ORGANIZ ATION 07/26/2018 [facility] DATE CREATED AUTHOR AUTHOR'S ORGANIZ ATION 06/27/2024 [facility] DATE CREATED AUTHOR AUTHOR'S ORGANIZ ATION 08/07/2024 [facility] DATE CREATED AUTHOR AUTHOR'S ORGANIZ ATION 10/05/2024 [facility] DATE CREATED AUTHOR AUTHOR'S ORGANIZ ATION 02/26/2025 [facility] Patient Care team informatio n (unrecognized section and content) Team Status: Active Member Role Status Dates Zebulun Beam VSC, FINANCIAL LEGAL ASSISTANT-C Primary Care Provider Active Team Status: Inactive Member Role Status Dates Zebulun Beam VSC, FINANCIAL LEGAL ASSISTANT-C Primary Care Provider Active Start: November 03, 2024 End: November 03, 2024 Zebulun Beam VSC, FINANCIAL LEGAL ASSISTANT-C Attending Provider Active Start: November 03, 2024 End: November 03, 2024 Team Status: Active Member Role/Relationship Status Dates Zebulun Beam VSC, FINANCIAL LEGAL ASSISTANT-C Primary Care Provider Active Team Status: Inactive Member Role/Relationship Status Dates Zebulun Beam VSC, FINANCIAL LEGAL ASSISTANT-C Primary Care Provider Active Start: November 03, 2024 End: November 03, 2024 Zebulun Beam VSC, FINANCIAL LEGAL ASSISTANT-C Attending Provider Active Start: November 03, 2024 End: November 03, 2024 Team Status: Inactive Member Role/Relationship Status Dates Zebulun Beam VSC, FINANCIAL LEGAL ASSISTANT-C Primary Care Provider Active Start: November 19, 2024 End: November 19, 2024 Zebulun Beam VSC, FINANCIAL LEGAL ASSISTANT-C Attending Provider Active Start: November 19, 2024 End: November 19, 2024 Team Status: Active Member Role/Relationship Status Dates Zebulun Beam VSC, FINANCIAL LEGAL ASSISTANT-C Primary care physician Active Team Status: Inactive Member Role/Relationship Status Dates Zebulun Beam VSC, FINANCIAL LEGAL ASSISTANT-C Primary care physician Active Start: November 03, 2024 End: November 03, 2024 Zebulun Beam VSC, FINANCIAL LEGAL ASSISTANT-C Attending physician Active Start: November 03, 2024 End: November 03, 2024 Team Status: Inactive Member Role/Relationship Status Dates Zebulun Beam VSC, FINANCIAL LEGAL ASSISTANT-C Primary care physician Active Start: November 19, 2024 End: November 19, 2024 Zebulun Beam VSC, FINANCIAL LEGAL ASSISTANT-C Attending physician Active Start: November 19, 2024 End: November 19, 2024 Team Status: Inactive Member Role/Relationship Status Dates Zebulun Beam VSC, FINANCIAL LEGAL ASSISTANT-C Primary care physician Active Start: February 03, 2025 End: February 03, 2025 Rebeca Pollock VSC, FINANCIAL LEGAL ASSISTANT-C Attending physician Active Start: February 03, 2025 End: February 03, 2025 SOFY Solano Referring Provider Active Start: February 03, 2025 End: February 03, 2025 Goals (unrecognized section and content) Goals may be documented in a n alternate section FOR RECORDS PERTAINING TO PATIENTS WHO ARE OR HAVE BEEN ENROLLED IN A CHEMICAL DEPENDENCY/SUBSTANCEABUSE PROGRAM, SOME INFORMATION MAY BE OMITTED. This clinical summary was aggregated from multiple sources. Caution should be exercised in using it in the provision of clinical care. This summary normalizes information from multiple sources, and as a consequence, information in this document may materially change the coding, format and clinical context of patient data. In addition, data may be omitted in some cases. CLINICAL DECISIONS SHOULD BE BASED ON THE PRIMARY CLINICAL RECORDS. [facility] [employer] provides no warranty or guarantee of the accuracy or completeness of information in this document.
== END | disposition home or self-care (01) ==
LOC: OPMRI 07:13
PROVIDERS: Referring Provider Psychiatry & Neurology Neurology; Visit Provider Psychiatry & Neurology Neurology
DX: F03.90 Unspecified dementia, unspecified severity, without behavioral disturbance, psychotic disturbance, mood disturbance, and anxiety (principal); F20.0 Paranoid schizophrenia
CPT/HCPCS: 70553; 95819; A9575